=== PATIENT | female | born 1950 | race Caucasian/White ===

== ENCOUNTER 2016-06-05 07:08 | Emergency (ER) | payer OTHER ==
[2016-06-05 07:24] VITALS: BP 194/93
[2016-06-05] MEDS ORDERED: NS 0.9% 1000 ML* 1,000 ML IV ONE (07:34)
[2016-06-05] MEDS ORDERED: Aspirin Low Dose CHEW TAB* 81 MG PO ONE (07:38)
[2016-06-05] MEDS ORDERED: Aspirin Low Dose CHEW TAB* 81 MG ONE (07:39)
[2016-06-05] MEDS ORDERED: Ondansetron INJ* 2 MG/ML VIAL IV ONE (07:42)
[2016-06-05] MEDS ORDERED: Ondansetron INJ* 2 MG/ML VIAL ONE (07:43)
--- NOTE | 2016-06-05 08:00 | UC ---
IFred,Pancho, scribed for Montse Marlow MD on 06/05/16 at 0740 . Abdominal Pain Female HPI - HPI Summary HPI Summary: This 66 y/o female presents to [facility] for acute n/v since 4 days ago. She also reports fever, chills, jaw pain, and epigastric/chest pain. Negative diarrhea. PO fluid intake makes n/v worse. Pt attempted to control her nausea with ondansetron with last dose about an hour ago, but dry heaves persist. PMHx includes IBS, asthma, HTN, HLD, and DM. Benign cardiac cath in October 2012. Pt reports last stress test was wnl. Plan of care involving ambulance transfer to [facility] is discussed with pt and present at bedside, and they are agreeable. Questions regarding transportation are answered. - History of Current Complaint Stated Complaint: VOMITING Time Seen by Provider: 06/05/16 07:16 Hx Obtained From: Patient, Medical Records Hx Last Menstrual Period: Years ago. ?: No Onset/Duration: Sudden Onset, Lasting Days, Still Present Timing: Constant Severity Initially: Moderate Severity Currently: Moderate Pain Intensity: 6 Pain Scale Used: 0-10 Numeric Location: Epigastric Radiates: Yes Radiates to: Back, Chest Character: Dull Aggravating Factor(s): Food, Other: - fluid Alleviating Factor(s): Nothing Associated Signs and Symptoms: Positive: Fever - subjective, Chest Pain - lower sternal pain, Nausea, Vomiting. Negative: Diarrhea - Risk Factors Ectopic Risk Factor: Negative Ovarian Torsion Risk Factor: Negative Allergies/Adverse Reactions: Allergies Allergy/AdvReac Type Severity Reaction Status Date / Time Penicillins Allergy Rash Verified 08/23/15 08:47 environmental Allergy Wheezing Uncoded 08/23/15 08:04 Home Medications: Home Medications Ondansetron ODT TAB* [Zofran Odt TAB*] 06/05/16 [History] PMH/Surg Hx/FS Hx/Imm Hx Endocrine History Of: Reports: Diabetes, Dyslipidemia Cardiovascular History Of: Reports: Hypertension Respiratory History Of: Reports: Asthma, Bronchitis Psychological History Of: Reports: Anxiety - PRN MEDICATION FOR, Depression - Surgical History Surgical History: Yes Surgery Procedure, Year, and Place: TONSILS, ARTHRO LT KNEE , RT KNEE + 2010 , CATARACTS 2010,. Heart Cath in October 2012, no blockage - Family History Known Family History: Positive: Cardiac Disease - Positive CAD to father. Afib to mother - Social History Lives: With Family Alcohol Use: Rare Substance Use Type: Prescribed Smoking Status (MU): Former Smoker Type: Cigarettes Amount Used/How Often: social Length of Time of Smoking/Using Tobacco: 20 years Have You Smoked in the Last Year: No When Did the Patient Quit Smoking/Using Tobacco: "years ago" Review of Systems Constitutional: Fever - subjective, Chills Skin: Negative Eyes: Negative ENT: Negative Respiratory: Negative Cardiovascular: Chest Pain Gastrointestinal: Abdominal Pain - epigastric pain, Vomiting Genitourinary: Negative Motor: Negative Neurovascular: Negative Musculoskeletal: Other: - jaw pain Neurological: Negative Psychological: Negative All Other Systems Reviewed And Are Negative: Yes Physical Exam Triage Information Reviewed: Yes Appearance: Well-Appearing, No Pain Distress, Obese Vital Signs: Initial Vital Signs Temp 97.6 F 06/05/16 07:17 Pulse 59 06/05/16 07:17 Resp 20 06/05/16 07:17 BP 194/93 06/05/16 07:17 Pulse Ox 95 06/05/16 07:17 Vital Signs Reviewed: Yes Eyes: Positive: Conjunctiva Clear ENT: Positive: Normal ENT inspection Neck: Positive: Supple Respiratory: Positive: Lungs clear, Normal breath sounds, No respiratory distress Cardiovascular: Positive: RRR, No Murmur, Pulses Normal, Brisk Capillary Refill Abdomen Description: Positive: No Organomegaly, Soft, Other: - diffuse mild tenderness. Negative: Distended, Guarding, McBurney's Point Tenderness, Peritoneal Signs Bowel Sounds: Positive: Present Musculoskeletal: Positive: Strength Intact, ROM Intact Neurological: Positive: Alert, Muscle Tone Normal Psychological Exam: Normal Skin Exam: Normal Diagnostics - EKG Cardiac Rate: Bradycardia - 52 bpm, Left axis (-6) Normal QTC. No change from prior on 01/02/2015 Cardiac Rhythm: Sinus: Normal ST Segment: Normal Re-Evaluation - Re-Evaluation First Eval Re-Evaluation Time: 07:42 Change: Unchanged Comment: MD in room to re-evaluate the patient. Nausea and chest discomfort still persist. Abd Pain Female Course/Dx - Differential Dx/Diagnosis Differential Diagnosis: ACS, Bowel Obstruction, Irritable Bowel Syndrome Provider Diagnoses: chest pain, jaw pain, abd pain with vomiting - Physician Notification/Consults Discussed Patient Care With: RUIZ Ambrosio at [facility] at 0730 AM Time Discussed With Above Provider: 07:30 Instructed by Provider To: Transfer - [facility] for higher level of care Discharge - Discharge Plan Condition: Stable Disposition: TRANS HIGHER LVL OF CARE FAC Discharge Disposition Comment: Pt given ASA 324mg chewed, zofran 4mg IV and transported by [facility] to [facility] The documentation as recorded by the Fred gonzalez Soohyun accurately reflects the service I personally performed and the decisions made by me, Montse Marlow MD.
== END 2016-06-05 07:50 | disposition short-term general hospital (02) ==
LOC: UCEAST 07:08
DX: R07.9 Chest pain, unspecified (principal); R11.2 Nausea with vomiting, unspecified; R68.84 Jaw pain; R10.9 Unspecified abdominal pain; Z87.891 Personal history of nicotine dependence; E11.9 Type 2 diabetes mellitus without complications; I10 Essential (primary) hypertension; E78.5 Hyperlipidemia, unspecified; J45.909 Unspecified asthma, uncomplicated
CPT/HCPCS: 93005; A9270-GY; J2405

== ENCOUNTER 2016-06-05 08:14 | Emergency (ER) | payer OTHER ==
[2016-06-05] MEDS ORDERED: Aspirin Low Dose CHEW TAB* 81 MG PO ONE (08:23)
--- NOTE | 2016-06-05 08:57 | RAD ---
HISTORY: Chest pain COMPARISONS: January 02, 2015 VIEWS:1: Single frontal portable view of the chest at 8:35 AM FINDINGS: LINES AND TUBES: None. CARDIOMEDIASTINAL SILHOUETTE: The cardiomediastinal silhouette is normal for portable technique. PLEURA: The costophrenic angles are sharp. No pleural abnormalities are noted. LUNG PARENCHYMA: The lungs are clear. ABDOMEN: The upper abdomen is clear. There is no subphrenic gas. BONES AND SOFT TISSUES: No bone or soft tissue abnormalities are noted. IMPRESSION: NO ACTIVE CARDIOPULMONARY DISEASE.
[2016-06-05 09:04] LABS: Hematocrit 43 % (35-47); Hemoglobin 14.2 g/dl (12.0-16.0); Mean Corpuscular HGB Conc 33 g/dl (31-36); Mean Corpuscular Hemoglobin 28 pg (27-31); Mean Corpuscular Volume 86 fL (80-97); Mean Platelet Volume 10 um3 (7.4-10.4); Red Blood Count 5.02 10^6/ul (4.0-5.4); Red Cell Distribution Width 14 % (10.5-15); White Blood Count 10.8 10^3/ul (3.5-10.8)
[2016-06-05 09:17] LABS: ALT 21 U/L (7-52); AST 16 U/L (13-39); Alkaline Phosphatase 61 U/L (34-104); Anion Gap 5 mmol/L (2-11); BUN/Creatinine Ratio 21.1 (8-20); Blood Urea Nitrogen 16 mg/dL (6-24); CO2 Carbon Dioxide 28 mmol/L (22-32); Calcium 9.2 mg/dL (8.6-10.3); Chloride 102 mmol/L (101-111); EGFR African American 98.2 (>60); EGFR Non-African American 76.4 (>60); Globulin 3.1 g/dL (2-4); Glucose 116 mg/dL (70-100); Potassium 3.8 mmol/L (3.5-5.0); Sodium 135 mmol/L (133-145); Total Protein 7.1 g/dL (6.4-8.9)
[2016-06-05 09:18] LABS: Troponin I 0.01 ng/mL (<0.04)
[2016-06-05] MEDS ORDERED: Ondansetron INJ* 2 MG/ML VIAL IV ONE (09:38)
[2016-06-05] MEDS ORDERED: Ketorolac INJ* 30 MG/ML 1 ML VIAL IV PUSH ONE (09:39)
[2016-06-05] MEDS: NS 0.9% 1000 ML* 2,000 ML IV ONE ×2 (09:48→11:10)
[2016-06-05 09:55] LABS: Urine Bacteria 1+ (Absent); Urine Bilirubin Negative (Negative); Urine Glucose Negative (Negative); Urine Nitrite Negative (Negative)
[2016-06-05 10:00] LABS: C Reactive Protein < 1.00 mg/L (< 5.00); Lipase 10 U/L (11.0-82.0)
[2016-06-05 13:52] VITALS: BP 129/76
--- NOTE | 2016-06-05 16:30 | ED ---
Kemal Castaneda Matthew, scribed for Marco Santacruz MD on 06/05/16 at 0955 . Abdominal Pain/Female - HPI Summary HPI Summary: A 66 y/o female presents to the ED with diffuse abdominal pain since 4 days ago. Associated symptoms include frontal headache, nausea, vomiting - since 4 days ago, left neck pain, fever, chills, coughing - started last night, lightheadedness, and urinary retention. The patient denies diffuse body aches, diarrhea, sinus congestion, rashes, and calf pain. She's also c/o of chest pain that radiates to the back. The pain is currently radiated minimal in severity. She has not had a BM since 4 days ago. Her lightheadedness worsens when sitting up. She is diabetic. She did not take her medication on 06/01 and 06/02. She has not eaten anything in the past 5 days. She has a Hx of asthma. The patient received her flu shot this year. - History of Current Complaint Chief Complaint: EDChestPainROMI Stated Complaint: NAUSEA/VOMITTING/CHEST PAIN Time Seen by Provider: 06/05/16 09:16 Hx Obtained From: Patient Hx Last Menstrual Period: Years ago. ?: No Onset/Duration: Gradual Onset, Lasting Days - 4, Still Present Timing: Constant Severity Initially: Moderate Severity Currently: Moderate Pain Intensity: 6 Pain Scale Used: 0-10 Numeric Location: Diffuse Radiates: No Associated Signs and Symptoms: Positive: Fever, Cough, Chest Pain - which radites to the back - minimal, Urinary Symptoms - retention, Decreased Appetite , Nausea, Vomiting, Other: - Neck Pain; lightheadedness, frontal headache, chills. Negative: Diarrhea Allergies/Adverse Reactions: Allergies Allergy/AdvReac Type Severity Reaction Status Date / Time Penicillins Allergy Rash Verified 08/23/15 08:47 environmental Allergy Wheezing Uncoded 08/23/15 08:04 PMH/Surg Hx/FS Hx/Imm Hx Endocrine/Hematology History: Reports: Hx Diabetes Denies: Hx Anticoagulant Therapy, Hx Thyroid Disease Cardiovascular History: Reports: Hx Hypertension Denies: Hx Congestive Heart Failure, Hx Deep Vein Thrombosis, Hx Myocardial Infarction, Hx Pacemaker/ICD Respiratory History: Reports: Hx Asthma, Hx Seasonal Allergies, Hx Sleep Apnea - DIAGNOSED 25 YEARS AGO- UNSURE IF STILL HAS Denies: Hx Chronic Obstructive Pulmonary Disease (COPD), Hx Lung Cancer, Hx Pneumonia, Hx Pulmonary Embolism GI History: Reports: Hx Gastroesophageal Reflux Disease, Hx Irritable Bowel Denies: Hx Gall Bladder Disease, Hx Gastrointestinal Bleed, Hx Ulcer, Hx Urosepsis History: Denies: Hx Kidney Stones, Hx Renal Disease Musculoskeletal History: Reports: Hx Arthritis - degenerative, Hx Back Problems , Other Musculoskeletal History - obesity Sensory History: Reports: Hx Cataracts, Hx Contacts or Glasses - GLASSES, Hx Glaucoma Denies: Hx Hearing Aid Opthamlomology History: Reports: Hx Cataracts, Hx Contacts or Glasses - GLASSES , Hx Glaucoma Neurological History: Denies: Hx Dementia, Hx Migraine, Hx Seizures, Hx Transient Ischemic Attacks (TIA) Psychiatric History: Reports: Hx Anxiety - PRN MEDICATION FOR, Hx Depression Denies: Hx Panic Disorder, Hx Schizophrenia, Hx Bipolar Disorder - Cancer History Hx Chemotherapy: No Hx Radiation Therapy: No - Surgical History Surgery Procedure, Year, and Place: TONSILS, ARTHRO LT KNEE , RT KNEE 2010 , CATARACTS 2010,. Heart Cath in October 2012, no blockage Hx Anesthesia Reactions: No Infectious Disease History: No Infectious Disease History: Denies: Hx Clostridium Difficile, Traveled Outside the [place] in Last 30 Days - Family History Known Family History: Positive: Cardiac Disease - Positive CAD to father. Afib to mother, Hypertension, Diabetes - Social History Alcohol Use: Rare Substance Use Type: Reports: Prescribed Smoking Status (MU): Former Smoker Type: Cigarettes Amount Used/How Often: social Length of Time of Smoking/Using Tobacco: 20 years Have You Smoked in the Last Year: No Review of Systems Positive: Fever, Chills Eyes: Negative ENT: Negative Negative: Nasal Discharge Positive: Chest Pain Positive: Cough Positive: Abdominal Pain, Vomiting, Nausea. Negative: Diarrhea Genitourinary: Other - urinary retention Positive: Myalgia - left sided neck pain Skin: Negative Negative: Rash Neurological: Other - lightheadedness Positive: Headache - frontal Psychological: Normal All Other Systems Reviewed And Are Negative: Yes Physical Exam - Summary Physical Exam Summary: The patient is well-nourished in no acute distress and in no acute pain. The skin is warm and dry and skin color reflects adequate perfusion. HEENT: The head is normocephalic and atraumatic. The pupils are equal and reactive. The conjunctivae are clear and without drainage. No photophobia noted. Nares are patent and without drainage. Mouth reveals dry mucous membranes and the throat is without erythema and exudate. The external ears are intact. The ear canals are patent and without drainage. The tympanic membranes are intact. Neck is supple with full range of motion. There are no carotid bruits. There is no neck vein distension. The patient has tenderness over the left TMJ. Respiratory: Chest is non-tender. She has wheezing on the right side. Cardiovascular: Heart is regular rate and rhythm. There is no murmur or rub auscultated. There is no peripheral edema and pulses are symmetrical and equal. Abdomen: The abdomen is soft and non-tender. There are normal bowel sounds heard in all four quadrants and there is no organomegaly palpated. Musculoskeletal: There is no back pain noted. Extremities are non-tender with full range of motion. There is good capillary refill. There is no peripheral edema or calf tenderness elicited. Neurological: Patient is alert and oriented to person, place and time. The patient has symmetrical motor strength in all four extremities. Cranial nerves are grossly intact. Deep tendon reflexes are symmetrical and equal in all four extremities. Psychiatric: The patient has an appropriate affect and does not exhibit any anxiety or depression. Triage Information Reviewed: Yes Vital Signs On Initial Exam: Initial Vitals Temp Pulse Resp BP Pulse Ox 98.4 F 54 22 167/72 98 06/05/16 08:22 06/05/16 08:22 06/05/16 08:22 06/05/16 08:22 06/05/16 08:22 Vital Signs Reviewed: Yes - [place] Coma Scale Coma Scale Total: 15 Diagnostics - Vital Signs Vital Signs Temp Pulse Resp BP Pulse Ox 06/05/16 08:22 98.4 F 54 22 167/72 98 - Laboratory Lab Results: Lab Results 06/05/16 06/05/16 06/05/16 Range/Units 08:50 08:50 08:50 WBC 10.8 (3.5-10.8) 10^3/ul RBC 5.02 (4.0-5.4) 10^6/ul Hgb 14.2 (12.0-16.0) g/dl Hct 43 (35-47) % MCV 86 (80-97) fL MCH 28 (27-31) pg MCHC 33 (31-36) g/dl RDW 14 (10.5-15) % Plt Count 192 (150-450) 10^3/ul MPV 10 (7.4-10.4) um3 Neut % (Auto) 81.9 (38-83) % Lymph % (Auto) 11.5 L (25-47) % [place] % (Auto) 5.8 (1-9) % Eos % (Auto) 0.5 (0-6) % Baso % (Auto) 0.3 (0-2) % Absolute Neuts (auto) 8.8 H (1.5-7.7) 10^3/ul Absolute Lymphs (auto) 1.2 (1.0-4.8) 10^3/ul Absolute Monos (auto) 0.6 (0-0.8) 10^3/ul Absolute Eos (auto) 0.1 (0-0.6) 10^3/ul Absolute Basos (auto) 0 (0-0.2) 10^3/ul Absolute Nucleated RBC 0.01 10^3/ul Nucleated RBC % 0 Sodium 135 (133-145) mmol/L Potassium 3.8 (3.5-5.0) mmol/L Chloride 102 (101-111) mmol/L Carbon Dioxide 28 (22-32) mmol/L Anion Gap 5 (2-11) mmol/L BUN 16 (6-24) mg/dL Creatinine 0.76 (0.51-0.95) mg/dL Est GFR ( Amer) 98.2 (>60) Est GFR (Non-Af Amer) 76.4 (>60) BUN/Creatinine Ratio 21.1 H (8-20) Glucose 116 H (70-100) mg/dL Lactic Acid 1.0 (0.5-2.0) mmol/L Calcium 9.2 (8.6-10.3) mg/dL Magnesium 2.0 (1.9-2.7) mg/dL Total Bilirubin 0.90 (0.2-1.0) mg/dL AST 16 (13-39) U/L ALT 21 (7-52) U/L Alkaline Phosphatase 61 (34-104) U/L Troponin I 0.01 (<0.04) ng/mL Total Protein 7.1 (6.4-8.9) g/dL Albumin 4.0 (3.2-5.2) g/dL Globulin 3.1 (2-4) g/dL Albumin/Globulin Ratio 1.3 (1-3) Result Diagrams: 06/05/16 08:50 06/05/16 08:50 Lab Statement: Any lab studies that have been ordered have been reviewed, and results considered in the medical decision making process. - Radiology CXR Xray Interpretation: No Acute Changes - IMPRESSION: NO ACTIVE CARDIOPULMONARY DISEASE. Radiology Interpretation Completed By: Radiologist - EKG 08:11 Cardiac Rate: Bradycardia - 53 bpm EKG Rhythm: Sinus Bradycardia EKG Interpretation: Poor R Wave Progression Re-Evaluation - Re-Evaluation First Eval Re-Evaluation Time: 12:52 Change: Improved Comment: The patient is still nauseated with a headache. The patient states that she does feel better and would like to be discharged home. Abdominal Pain Fem Course/Dx - Course Course Of Treatment: A 66 y/o female presents to the ED with diffuse abdominal pain since 4 days ago. Associated symptoms include frontal headache, nausea, vomiting - since 4 days ago, left neck pain, fever, chills, coughing - started last night, lightheadedness, and urinary retention. The patient denies diffuse body aches, diarrhea, sinus congestion, rashes, and calf pain. Labs were reviewed. CXR shows no active cardiopulmonary disease. EKG shows sinus bradycardia at 53 bpm. In the ED course, the patient was given aspirin, 2L IV fluids, Toradol, and Zofran. She will be discharged home on hydrocodone and Zofran, and follow-up with her PCP. - Diagnoses Differential Diagnosis: Positive: TN, Pneumonia, Urinary Tract Infection, Other - dehydration, viral syndrome, influenza, Provider Diagnoses: Viral syndrome, Dehydration Discharge - Discharge Plan Condition: Stable Disposition: HOME Prescriptions: HYDROcodone/ACETAMIN 5-325 MG* [[place] 5-325 TAB*] 1 tab PO Q6H PRN #20 tab MDD 4 PRN Reason: pain Ondansetron ODT TAB* [Zofran Odt TAB*] 4 mg PO Q8H PRN #20 tab.odt PRN Reason: nausea Patient Education Materials: Viral Syndrome (ED), Dehydration (ED), Ondansetron (By mouth), Hydrocodone/Acetaminophen (By mouth) Referrals: Marcelo,Jesus Alberto, MD [Primary Care Provider] - 2 Days Additional Instructions: Please follow-up with your primary care physician in 2 days. The documentation as recorded by the Kemal gonzalez Matthew accurately reflects the service I personally performed and the decisions made by me, Marco Santacruz MD.
== END 2016-06-05 13:09 | disposition home or self-care (01) ==
LOC: ED 08:14
DX: E86.0 Dehydration (principal); B34.9 Viral infection, unspecified; E11.9 Type 2 diabetes mellitus without complications; K21.9 Gastro-esophageal reflux disease without esophagitis; J45.909 Unspecified asthma, uncomplicated; Z88.0 Allergy status to penicillin; E66.9 Obesity, unspecified; Z87.891 Personal history of nicotine dependence; Z68.35 Body mass index [BMI] 35.0-35.9, adult; R07.9 Chest pain, unspecified; R11.2 Nausea with vomiting, unspecified; R68.84 Jaw pain; R10.9 Unspecified abdominal pain; I10 Essential (primary) hypertension; E78.5 Hyperlipidemia, unspecified
CPT/HCPCS: 36415; 71010; 80053; 81003; 81015; 83605; 83690; 83735; 83880; 84484; 85025; 86140; 87086; 87502; 93005; 96360; 96374; 96375; 99284; A9270-GY; J1885; J2405

== ENCOUNTER 2016-06-06 13:10 | Emergency (ER) | payer OTHER ==
[2016-06-06] MEDS ORDERED: Ondansetron INJ* 2 MG/ML VIAL IV ONE (17:34)
[2016-06-06] MEDS ORDERED: NS 0.9% 1000 ML* 1,000 ML IV SCH (17:45)
[2016-06-06 17:49] LABS: Hematocrit 43 % (35-47); Mean Corpuscular HGB Conc 33 g/dl (31-36); Mean Corpuscular Hemoglobin 28 pg (27-31); Mean Corpuscular Volume 86 fL (80-97); Mean Platelet Volume 10 um3 (7.4-10.4); Red Blood Count 4.97 10^6/ul (4.0-5.4); Red Cell Distribution Width 14 % (10.5-15); White Blood Count 9.2 10^3/ul (3.5-10.8)
[2016-06-06 17:58] LABS: ALT 19 U/L (7-52); AST 16 U/L (13-39); Albumin 4.5 g/dL (3.2-5.2); Alkaline Phosphatase 68 U/L (34-104); Anion Gap 11 mmol/L (2-11); BUN/Creatinine Ratio 16.4 (8-20); Blood Urea Nitrogen 12 mg/dL (6-24); CO2 Carbon Dioxide 23 mmol/L (22-32); Calcium 9.9 mg/dL (8.6-10.3); Chloride 102 mmol/L (101-111); EGFR African American 102.9 (>60); Globulin 3.4 g/dL (2-4); Glucose 90 mg/dL (70-100); Lipase < 10 U/L (11.0-82.0); Potassium 3.2 mmol/L (3.5-5.0); Sodium 136 mmol/L (133-145); Total Protein 7.9 g/dL (6.4-8.9)
[2016-06-06] MEDS ORDERED: NS 0.9% 1000 ML* 1,000 ML IV ONE (18:18)
[2016-06-06] MEDS ORDERED: Iodixanol* (CONTRAST) 320 MG/ML 100 ML SDV IV ONE (18:41)
[2016-06-06 19:30] LABS: Urine Bacteria 2+ (Absent); Urine Bilirubin Negative (Negative); Urine Glucose Negative (Negative); Urine Nitrite Negative (Negative)
--- NOTE | 2016-06-06 20:29 | RAD ---
INDICATION: Left lower quadrant pain COMPARISON: None TECHNIQUE: Axial source images were obtained from the hemidiaphragms to the symphysis pubis following administration of oral and intravenous contrast. 114 mL Visipaque 320 was utilized. Coronal and sagittal reconstructed images were acquired. Lung bases: The cephalad most image shows a 5 mm nodule in the right middle lobe. This likely chronic inflammatory focus. Mild linear change at both lung bases is most consistent with atelectasis or scarring. Liver: There is mild hepatic steatosis. There are no masses. There is no ductal dilatation. Gallbladder: There may be several tiny noncalcified gallstones versus cholesterol polyps. Spleen: The spleen is normal in size. There are no masses. Pancreas: There is no focal pancreatic mass or ductal dilatation. Adrenal glands: There is no evidence of adrenal mass. Kidneys: The kidneys are normal in size and position. There are prompt nephrograms and there is prompt excretion bilaterally. There are 2 renal cysts largest which measures 1.6 cm There is no evidence of nephrolithiasis. Adenopathy: There is no evidence of adenopathy by size criteria. Fluid collections: There are no free or localized fluid collections. Vessels:There are no significant atherosclerotic changes involving the aorta. There is no focal aneurysm. The iliac vessels are normal in caliber. The IVC appears normal. GI tract: There are no acute CT bowel findings. There is no obstruction. The stomach and small bowel appear normal. The lower GI tract is remarkable for scattered sigmoid colon diverticula. The cecum, ileocecal valve, and terminal ileum appear normal. The appendix is visualized and appear normal. Pelvic organs: The uterus and adnexa appear normal Bladder: There are no bladder masses. Abdominal and pelvic soft tissues: The extraperitoneal abdominal and pelvic soft tissues appear normal.. Osseous structures: There are no acute osseous findings. Other: None IMPRESSION: NO ACUTE CT FINDINGS. NO MASS OR INFLAMMATORY CHANGE. SCATTERED DIVERTICULA OF THE SIGMOID COLON. THERE MAY BE CLOSER POLYPS VERSUS TINY NONCALCIFIED GALLSTONES NOTED INCIDENTALLY.
[2016-06-06] MEDS ORDERED: Metoclopramide TAB* 10 MG PO ONE (21:26)
[2016-06-06 22:46] VITALS: BP 151/68
--- NOTE | 2016-06-07 00:03 | ED ---
I, Oh,Pancho, scribed for James Chowdhury MD on 06/06/16 at 1816 . GI/ HPI - HPI Summary HPI Summary: This 66 y/o female presents to ED for persistent n/v after her Urgent care and ED visits yesterday. N/v started 5 days ago. Pt reports diffuse abd pain, fever , chills, SIDDIQI, dizziness, and "vibration from inside my body", but denies any cough. PO fluid intake makes the n/v worse. Dizziness is worse with head movement. PMHx includes DM, HTN, diverticulitis, and CAD with cardiac cath. Pt reports that her cath was clean. Pt is still getting menstrual cycle. Pt is currently on weekly potassium tablet. - History of Current Complaint Chief Complaint: EDAbdPain Time Seen by Provider: 06/06/16 17:28 Stated Complaint: VOMITING/DIZZY Hx Obtained From: Patient, Medical Records Onset/Duration: Started Days Ago, Atraumatic, Still Present Timing: Constant Severity: Moderate Current Severity: Mild Pain Intensity: 2 Location of Pain: Diffuse Associated Signs and Symptoms: Positive: Nausea, Vomiting, Diarrhea, Fever - subjective, Chills, Abdominal Pain - diffuse. Negative: Cough Aggravating Factor(s): Liquids Alleviating Factor(s): Nothing - Allergy/Home Medications Allergies/Adverse Reactions: Allergies Allergy/AdvReac Type Severity Reaction Status Date / Time Penicillins Allergy Rash Verified 08/23/15 08:47 environmental Allergy Wheezing Uncoded 08/23/15 08:04 PMH/Surg Hx/FS Hx/Imm Hx Endocrine/Hematology History: Reports: Hx Diabetes Denies: Hx Anticoagulant Therapy, Hx Thyroid Disease Cardiovascular History: Reports: Hx Hypertension Denies: Hx Congestive Heart Failure, Hx Deep Vein Thrombosis, Hx Myocardial Infarction, Hx Pacemaker/ICD Respiratory History: Reports: Hx Asthma, Hx Seasonal Allergies, Hx Sleep Apnea - DIAGNOSED 25 YEARS AGO- UNSURE IF STILL HAS Denies: Hx Chronic Obstructive Pulmonary Disease (COPD), Hx Lung Cancer, Hx Pneumonia, Hx Pulmonary Embolism GI History: Reports: Hx Gastroesophageal Reflux Disease, Hx Irritable Bowel Denies: Hx Gall Bladder Disease, Hx Gastrointestinal Bleed, Hx Ulcer, Hx Urosepsis History: Denies: Hx Kidney Stones, Hx Renal Disease Musculoskeletal History: Reports: Hx Arthritis - degenerative, Hx Back Problems , Other Musculoskeletal History - obesity Sensory History: Reports: Hx Cataracts, Hx Contacts or Glasses - GLASSES, Hx Glaucoma Denies: Hx Hearing Aid Opthamlomology History: Reports: Hx Cataracts, Hx Contacts or Glasses - GLASSES , Hx Glaucoma Neurological History: Denies: Hx Dementia, Hx Migraine, Hx Seizures, Hx Transient Ischemic Attacks (TIA) Psychiatric History: Reports: Hx Anxiety - PRN MEDICATION FOR, Hx Depression Denies: Hx Panic Disorder, Hx Schizophrenia, Hx Bipolar Disorder - Cancer History Hx Chemotherapy: No Hx Radiation Therapy: No - Surgical History Surgery Procedure, Year, and Place: TONSILS, ARTHRO LT KNEE , RT KNEE 2010 , CATARACTS 2010,. Heart Cath in October 2012, no blockage Hx Anesthesia Reactions: No Infectious Disease History: No Infectious Disease History: Denies: Hx Clostridium Difficile, Traveled Outside the [place] in Last 30 Days - Family History Known Family History: Positive: Cardiac Disease - Positive CAD to father. Afib to mother, Hypertension, Diabetes - Social History Alcohol Use: Rare Hx Substance Use: Yes Substance Use Type: Reports: Prescribed Hx Tobacco Use: Yes Smoking Status (MU): Former Smoker Type: Cigarettes Amount Used/How Often: social Length of Time of Smoking/Using Tobacco: 20 years Have You Smoked in the Last Year: No Review of Systems Positive: Fever, Chills Negative: Erythema Negative: Sore Throat Negative: Chest Pain Negative: Shortness Of Breath, Cough Positive: Abdominal Pain, Vomiting, Diarrhea - watery stool this morning, Nausea Negative: dysuria Negative: Myalgia, Edema Neurological: Other - positive for dizziness Positive: Headache Negative: Anxious, Depressed All Other Systems Reviewed And Are Negative: Yes Physical Exam - Summary Physical Exam Summary: Constitutional: Well-developed, Well-nourished, Alert. (-) Distressed Skin: Warm, Dry HENT: Normocephalic; Atraumatic Eyes: Conjunctiva normal Neck: Musculoskeletal ROM normal neck. (-) JVD, (-) Stridor, (-) Tracheal deviation Cardio: Rhythm regular, rate normal, Heart sounds normal; Intact distal pulses; The pedal pulses are 2+ and symmetric. Radial pulses are 2+ and symmetric. (-) Murmur Pulmonary/Chest wall: Effort normal. (-) Respiratory distress, (-) Wheezes, (-) Rales Abd: Soft, (+) Diffuse tenderness, (-) Distension, (-) Guarding, (-) Rebound Musculoskeletal: (-) Edema Lymph: (-) Cervical adenopathy Neuro: Alert, Oriented x3 Psych: Mood and affect Normal Triage Information Reviewed: Yes Vital Signs On Initial Exam: Initial Vitals Temp Pulse Resp BP Pulse Ox 98.2 F 62 20 181/87 98 06/06/16 13:15 06/06/16 13:15 06/06/16 13:15 06/06/16 13:15 06/06/16 13:15 Vital Signs Reviewed: Yes Diagnostics - Vital Signs Vital Signs Temp Pulse Resp BP Pulse Ox 06/06/16 16:18 99.5 F 65 16 171/67 100 06/06/16 15:21 98.0 F 60 16 166/74 100 06/06/16 13:15 98.2 F 62 20 181/87 98 - Laboratory Lab Results: Lab Results 06/06/16 06/06/16 Range/Units 16:57 16:57 WBC 9.2 (3.5-10.8) 10^3/ul RBC 4.97 (4.0-5.4) 10^6/ul Hgb 14.0 (12.0-16.0) g/dl Hct 43 (35-47) % MCV 86 (80-97) fL MCH 28 (27-31) pg MCHC 33 (31-36) g/dl RDW 14 (10.5-15) % Plt Count 201 (150-450) 10^3/ul MPV 10 (7.4-10.4) um3 Neut % (Auto) 76.9 (38-83) % Lymph % (Auto) 16.7 L (25-47) % [place] % (Auto) 5.7 (1-9) % Eos % (Auto) 0.1 (0-6) % Baso % (Auto) 0.6 (0-2) % Absolute Neuts (auto) 7.1 (1.5-7.7) 10^3/ul Absolute Lymphs (auto) 1.5 (1.0-4.8) 10^3/ul Absolute Monos (auto) 0.5 (0-0.8) 10^3/ul Absolute Eos (auto) 0 (0-0.6) 10^3/ul Absolute Basos (auto) 0.1 (0-0.2) 10^3/ul Absolute Nucleated RBC 0 10^3/ul Nucleated RBC % 0 Sodium 136 (133-145) mmol/L Potassium 3.2 L (3.5-5.0) mmol/L Chloride 102 (101-111) mmol/L Carbon Dioxide 23 (22-32) mmol/L Anion Gap 11 (2-11) mmol/L BUN 12 (6-24) mg/dL Creatinine 0.73 (0.51-0.95) mg/dL Est GFR ( Amer) 102.9 (>60) Est GFR (Non-Af Amer) 80.0 (>60) BUN/Creatinine Ratio 16.4 (8-20) Glucose 90 (70-100) mg/dL Calcium 9.9 (8.6-10.3) mg/dL Total Bilirubin 0.80 (0.2-1.0) mg/dL AST 16 (13-39) U/L ALT 19 (7-52) U/L Alkaline Phosphatase 68 (34-104) U/L Total Protein 7.9 (6.4-8.9) g/dL Albumin 4.5 (3.2-5.2) g/dL Globulin 3.4 (2-4) g/dL Albumin/Globulin Ratio 1.3 (1-3) Lipase < 10 L (11.0-82.0) U/L Result Diagrams: 06/06/16 16:57 06/06/16 16:57 Lab Statement: Any lab studies that have been ordered have been reviewed, and results considered in the medical decision making process. - CT Ab/P CT Interpretation: No Acute Changes - NO ACUTE CT FINDINGS. NO MASS OR INFLAMMATORY CHANGE. SCATTERED DIVERTICULA OF THE SIGMOID COLON. THERE MAY BE CLOSER POLYPS VERSUS TINY NONCALCIFIED GALLSTONES NOTED INCIDENTALLY. CT Interpretation Completed By: Radiologist Re-Evaluation - Re-Evaluation First Eval Re-Evaluation Time: 20:42 Change: Improved Comment: MD in room to re-evaluate the pt. She is feeling better at this moment after fluid resuscitation and ondansetron. Pt will be road-tested and be discharged if stabled. Second Eval Re-Evaluation Time: 21:23 Change: Worse Comment: Pt had diarrhea in ED. GIGU Course/Dx - Course Assessment/Plan: This 66 y/o female presents to ED with chief complaint of persistent n/v, SIDDIQI, and abd cramps since her discharge with [facility] yesterday. Pt was seen with similar complaints and sent home with hydrocodone and ondansetron a day before. CT Ab/P indicates scattered diverticula without any acute changes as well as incidental finding of noncalcified gallstone. Bloodwork is wnl. UA appears contaminated with squamous cells present as well as 2+bacteria, scant 1 + blood and ketone. Pt is re-evaluated after NS IV fluid and ondansetron, and she states that she is feeling better. - Diagnoses Provider Diagnoses: Viral syndrome, Gastroenteritis Discharge - Discharge Plan Condition: Stable Disposition: HOME Patient Education Materials: Viral Syndrome (ED), Gastroenteritis (ED) Referrals: Jesus Alberto Robertson MD [Primary Care Provider] - 2 Days Additional Instructions: Return to the emergency department for changing or worsening symptoms The documentation as recorded by the Fred gonzalez Soohyun accurately reflects the service I personally performed and the decisions made by , James Chowdhury MD.
== END 2016-06-06 22:42 | disposition home or self-care (01) ==
LOC: ED 13:10
DX: K52.9 Noninfective gastroenteritis and colitis, unspecified (principal); B34.9 Viral infection, unspecified; I10 Essential (primary) hypertension; J45.909 Unspecified asthma, uncomplicated; F41.9 Anxiety disorder, unspecified; Z87.891 Personal history of nicotine dependence; E11.9 Type 2 diabetes mellitus without complications; I25.10 Atherosclerotic heart disease of native coronary artery without angina pectoris; Z88.0 Allergy status to penicillin
CPT/HCPCS: 36415; 74177; 80053; 81003; 81015; 83690; 85025; 87086; 93005; 96360; 96374; 99283; A9270-GY; J2405; Q9967

== ENCOUNTER 2016-10-08 11:54 | Emergency (ER) | payer OTHER ==
[2016-10-08 12:14] VITALS: BP 128/74
[2016-10-08] MEDS ORDERED: Aspirin Low Dose CHEW TAB* 81 MG PO ONE (12:43)
[2016-10-08] MEDS ORDERED: Ondansetron INJ* 2 MG/ML VIAL IV ONE (12:44)
[2016-10-08] MEDS ORDERED: NS 0.9% 1000 ML* 1,000 ML IV ONE (13:25)
--- NOTE | 2016-10-08 13:41 | UC ---
Juliet Castaneda Anna, scribed for Tiera Terry DO on 10/08/16 at 1220 . Dizzy HPI HPI Summary: Patient is a 66 y/o female coming to [facility] [place] presenting with the sudden onset of constant dizziness that began this morning at 0600. She has additionally had nausea accompanied by chills, diaphoresis, and emesis of light green liquid. She has also been dry heaving and feels RUQ abdominal pain. She has left shoulder pain and back pain that began a few weeks ago. She takes codeine for her arm pain but stopped taking it four days ago. She has been coughing, and had some clear rhinorrhea. Denies SOB, CP, neck pain, jaw pain, dysuria. She had similar symptoms four months ago, where she was diagnosed with gastroenteritis. Her history is significant for HLD, HTN, GERD, irritable bowel , and DM. Patient medications were reviewed this visit. - History Of Current Complaint Chief Complaint: UCDizziness Stated Complaint: VOMITING Time Seen by Provider: 10/08/16 12:00 Hx Obtained From: Patient, Family/Natural Resource Technician - accompanied by Hx Last Menstrual Period: Years ago. ?: No Onset/Duration: Sudden Onset, Lasting Hours, Still Present Timing: Constant Severity Initially: Moderate Severity Currently: Moderate Character: Dizzy Aggravating Factor(s): Nothing Alleviating Factor(s): Nothing Associated Signs And Symptoms: Positive: Nausea, Vomiting, Diaphoresis. Negative: Chest Pain, SOB Related History: Similar Episode/Dx as - 05/2016, diagnosed with gastroenteritis - Allergies/Home Medications Allergies/Adverse Reactions: Allergies Allergy/AdvReac Type Severity Reaction Status Date / Time Penicillins Allergy Rash Verified 09/18/16 09:34 environmental Allergy Wheezing Uncoded 09/18/16 09:34 PMH/Surg Hx/FS Hx/Imm Hx Endocrine History Of: Reports: Diabetes - on oral meds, Dyslipidemia Denies: Thyroid Disease, Hyperthyroidism, Hypothyroidism Cardiovascular History Of: Reports: Hypertension Denies: Cardiac Disorders, Pacemaker/ICD, Myocardial Infarction, Congestive Heart Failure, Atrial Fibrillation, Deep Vein Thrombosis, Bleeding Disorders Respiratory History Of: Reports: Asthma, Bronchitis Denies: COPD, Pneumonia, Pulmonary Embolism GI/ History Of: Denies: Gastroesophageal Reflux, Ulcer, Gastrointestinal Bleed, Gall Bladder Disease, Kidney Stones, Diverticulitis, Renal Disease, Urosepsis Neurological History Of: Denies: TIA, CVA, Dementia, Seizures, Migraine Psychological History Of: Reports: Anxiety - PRN MEDICATION FOR, Depression Denies: Bipolar Disorder, Schizophrenia, Post Traumatic Stress Disorder Cancer History Of: Denies: Lung Cancer, Colorectal Cancer, Breast Cancer, Prostate Cancer, Cervical Cancer Other History Of: Negative For: HIV, Hepatitis B, Hepatitis C, Anticoagulant Therapy - Surgical History Surgical History: Yes Surgery Procedure, Year, and Place: TONSILS, ARTHRO LT KNEE , RT KNEE + 2010 , CATARACTS 2010,. Heart Cath in October 2012, no blockage. BOTOX FOR ANAL FISSURE-2016 - Family History Known Family History: Positive: Cardiac Disease - Positive CAD to father. Afib to mother, Hypertension, Diabetes - Social History Lives: With Family Alcohol Use: None Substance Use Type: Marijuana Substance Use Comment - Amount & Last Used: occasional marijuana use- pt states it helps her back pain Smoking Status (MU): Former Smoker Type: Cigarettes Amount Used/How Often: social Length of Time of Smoking/Using Tobacco: 20 years Have You Smoked in the Last Year: No When Did the Patient Quit Smoking/Using Tobacco: "years ago" Review of Systems Constitutional: Chills - alternately warm and cold, Other - diaphoresis Skin: Negative Eyes: Negative ENT: Nasal Discharge Respiratory: Cough Cardiovascular: Negative Gastrointestinal: Abdominal Pain - RUQ, Vomiting, Other - nausea Genitourinary: Negative Motor: Negative Neurovascular: Negative Musculoskeletal: Arthralgia - left shoulder pain, Myalgia - back pain Neurological: Other - dizziness Psychological: Negative All Other Systems Reviewed And Are Negative: Yes Physical Exam Triage Information Reviewed: Yes Appearance: Ill-Appearing, Pain Distress - mod, Obese, Other: - Diaphoretic. Not pale. Vital Signs: Initial Vital Signs Temp 96.7 F 10/08/16 12:11 Pulse 55 10/08/16 12:11 Resp 16 10/08/16 12:11 BP 128/74 10/08/16 12:11 Pulse Ox 99 10/08/16 12:11 Elevated BP noted. Vital Signs Reviewed: Yes Eyes: Positive: Conjunctiva Clear. Negative: Discharge ENT: Positive: Hearing grossly normal. Negative: Muffled/hoarse voice Neck: Positive: Supple, Nontender Respiratory: Positive: Normal breath sounds, No respiratory distress, No accessory muscle use, Wheezing - diffuse in all [place] Cardiovascular: Positive: No Murmur, Bradycardia Abdomen Description: Positive: Soft, Other: - Exquisitely tender in epigastric and RUQ areas. Some RLQ tenderness.. Negative: Distended, Guarding Bowel Sounds: Positive: Present Musculoskeletal Exam: Normal Neurological: Positive: Alert, Muscle Tone Normal Psychological Exam: Normal Psychological: Positive: Age Appropriate Behavior Skin Exam: Other - warm, dry, normal color Diagnostics - EKG Cardiac Rate: Bradycardia - 57 bpm Cardiac Rhythm: Sinus: Normal Ectopy: None ST Segment: Normal - No ST changes Dizzy Course/Dx - Differential Dx/Diagnosis Differential Diagnosis/HQI/PQRI: Other - gall bladder dz, pancreatitis, acs, bronchitis/bronchospasm, abd pain Provider Diagnoses: Dizziness. Epigastric/RUQ pain. Acute nausea and vomiting. Atypical chest pain r/o ACS. Bronchospasm. BP in poor control. - Physician Notifications Discussed Patient Care With: Dr. Lopez (ED Physician) at 1241. Agrees to accept patient at [facility]. Discharge - Discharge Plan Condition: Stable Disposition: TRANS HIGHER LVL OF CARE FAC Discharge Disposition Comment: [facility] Referrals: Jesus Alberto Robertson MD [Primary Care Provider] - The documentation as recorded by the Juliet gonzalez Anna accurately reflects the service I personally performed and the decisions made by , Tiera Terry DO.
== END 2016-10-08 13:15 | disposition short-term general hospital (02) ==
LOC: UCEAST 11:54
DX: R42 Dizziness and giddiness (principal); R10.13 Epigastric pain; R11.2 Nausea with vomiting, unspecified; R07.89 Other chest pain; J98.01 Acute bronchospasm; I10 Essential (primary) hypertension; Z88.0 Allergy status to penicillin; E11.9 Type 2 diabetes mellitus without complications; Z79.84 Long term (current) use of oral hypoglycemic drugs; F41.9 Anxiety disorder, unspecified; E66.9 Obesity, unspecified; F32.9 Major depressive disorder, single episode, unspecified; F12.90 Cannabis use, unspecified, uncomplicated; Z87.891 Personal history of nicotine dependence
CPT/HCPCS: 93005; 96360; 96374; 99213; A9270-GY; G0463; J2405

== ENCOUNTER → 2016-10-08 13:43 | Emergency (ER) | payer OTHER ==
[~2016-10-08 13:43] MED LIST: NS 0.9% 1000 ML* 1,000 ML IV ONE; PROCHLORPERAZINE INJ 5 MG/ML 2 ML VIAL IV ONE; Pantoprazole IV* 40 MG IV ONE
[2016-10-08 14:04] VITALS: BP 140/60
[2016-10-08 14:17] LABS: Hematocrit 40 % (35-47); Hemoglobin 13.1 g/dl (12.0-16.0); Mean Corpuscular HGB Conc 33 g/dl (31-36); Mean Corpuscular Hemoglobin 28 pg (27-31); Mean Corpuscular Volume 86 fL (80-97); Mean Platelet Volume 10 um3 (7.4-10.4); Red Blood Count 4.65 10^6/ul (4.0-5.4); Red Cell Distribution Width 15 % (10.5-15); White Blood Count 11.4 10^3/ul (3.5-10.8)
[2016-10-08 14:29] LABS: ALT 12 U/L (7-52); AST 16 U/L (13-39); Albumin 4.2 g/dL (3.2-5.2); Alkaline Phosphatase 88 U/L (34-104); Amylase 37 U/L (29-103); Anion Gap 9 mmol/L (2-11); BUN/Creatinine Ratio 17.6 (8-20); Blood Urea Nitrogen 12 mg/dL (6-24); C Reactive Protein 6.21 mg/L (< 5.00); CO2 Carbon Dioxide 25 mmol/L (22-32); Calcium 10.2 mg/dL (8.6-10.3); Chloride 105 mmol/L (101-111); EGFR African American 111.7 (>60); EGFR Non-African American 86.8 (>60); Globulin 3.5 g/dL (2-4); Glucose 146 mg/dL (70-100); Lipase < 10 U/L (11.0-82.0); Potassium 4.5 mmol/L (3.5-5.0); Sodium 139 mmol/L (133-145); Total Protein 7.7 g/dL (6.4-8.9)
[2016-10-08 14:31] LABS: Troponin I 0.01 ng/mL (<0.04)
--- NOTE | 2016-10-08 14:39 | RAD ---
HISTORY: Abdominal pain COMPARISONS: CT dated June 06, 2016 TECHNIQUE: Multiple transverse and longitudinal ultrasound images were obtained of the right upper quadrant of the abdomen using grayscale and color Doppler imaging. FINDINGS: LIVER: The liver is normal in shape, size, contour, and echogenicity. There are no focal parenchymal masses. There is normal hepatopedal flow of the portal vein on Doppler imaging. BILIARY TREE: There is no intrahepatic or extrahepatic biliary dilatation. The common duct measures 0.4 cm. GALLBLADDER: The gallbladder is well-visualized. There is no cholelithiasis, gallbladder wall thickening, pericholecystic fluid, or sonographic Contreras sign. PANCREAS: The head of the pancreas is unremarkable. The tail of the pancreas is not well visualized secondary to overlying bowel gas. RIGHT KIDNEY: The right kidney is normal in shape, size, contour, and echogenicity. There is no hydronephrosis or nephrolithiasis. The right kidney measures 12.1 x 5.2 x 4.4 cm. AORTA AND IVC: The aorta and IVC are unremarkable. FLUID: There are no pleural effusions. There is no free fluid within the hepatorenal recess. OTHER FINDINGS: None. IMPRESSION: NO ACUTE SONOGRAPHIC PATHOLOGY OF THE VISUALIZED PORTION OF THE ABDOMEN
--- NOTE | 2016-10-08 14:45 | RAD ---
HISTORY: Severe abdominal pain with vomiting COMPARISONS: CT dated June 06, 2016 VIEWS: Frontal supine and upright views of the abdomen. FINDINGS: BOWEL: There is a nonspecific bowel gas pattern, with nondilated small bowel gas noted. CALCULI: There are no abnormal calculi. BONES AND SOFT TISSUES: Degenerative changes are noted OTHER FINDINGS: The lung bases are clear. There is no subphrenic gas. IMPRESSION: NONSPECIFIC BOWEL GAS PATTERN. NO SUBPHRENIC GAS.
[2016-10-08 16:00] LABS: Urine Bilirubin Negative (Negative); Urine Glucose Negative (Negative); Urine Nitrite Negative (Negative)
--- NOTE | 2016-10-08 18:50 | ED ---
Eileen Castaneda Auryana, scribed for Wilmer Lopez MD on 10/08/16 at 1409 . GI/ HPI - HPI Summary HPI Summary: 66 year old female presents with nausea, dry heaves, and vomiting starting this morning at 05:00. She reports that this morning she woke to have a bowel movement - normal per patient when her symptoms started. She also reports that she has chills with hot flashes, and RUQ pain/middle upper abdominal pain starting after the vomiting. Prior episode in May - dx; dehydration and admitted for fluids - reports history of salivation, nausea, and vomiting with BMs. She denies any fevers. Aside from her current complaints today -she reports left shoulder pain that radiates into her back with left hand parasthesia -reports injury. - History of Current Complaint Chief Complaint: EDNauseaVomitDiarrh Time Seen by Provider: 10/08/16 13:58 Stated Complaint: NAUSEA Hx Obtained From: Patient Onset/Duration: Started Hours Ago - this morning at 05:00, Still Present Timing: Constant Severity: Mild Current Severity: Mild Location of Pain: Diffuse - RUQ and middle upper ABD Associated Signs and Symptoms: Positive: Nausea, Vomiting, Chills - with hot flashes. Negative: Fever - Allergy/Home Medications Allergies/Adverse Reactions: Allergies Allergy/AdvReac Type Severity Reaction Status Date / Time Penicillins Allergy Rash Verified 09/18/16 09:34 environmental Allergy Wheezing Uncoded 09/18/16 09:34 PMH/Surg Hx/FS Hx/Imm Hx Endocrine/Hematology History: Reports: Hx Diabetes - on oral meds Denies: Hx Anticoagulant Therapy, Hx Thyroid Disease Cardiovascular History: Reports: Hx Hypercholesterolemia, Hx Hypertension Denies: Hx Congestive Heart Failure, Hx Deep Vein Thrombosis, Hx Myocardial Infarction, Hx Pacemaker/ICD Respiratory History: Reports: Hx Asthma, Hx Seasonal Allergies, Hx Sleep Apnea - DIAGNOSED 25 YEARS AGO- UNSURE IF STILL HAS Denies: Hx Chronic Obstructive Pulmonary Disease (COPD), Hx Lung Cancer, Hx Pneumonia, Hx Pulmonary Embolism GI History: Reports: Hx Gastroesophageal Reflux Disease, Hx Irritable Bowel, Other GI Disorders - anal fissure with pelvic floor dysfunction Denies: Hx Gall Bladder Disease, Hx Gastrointestinal Bleed, Hx Ulcer, Hx Urosepsis History: Denies: Hx Kidney Stones, Hx Renal Disease Musculoskeletal History: Reports: Hx Arthritis - degenerative, Hx Back Problems , Hx Scoliosis - SLIGHT, Other Musculoskeletal History - obesity Sensory History: Reports: Hx Cataracts, Hx Contacts or Glasses - GLASSES, Hx Glaucoma Denies: Hx Hearing Aid Opthamlomology History: Reports: Hx Cataracts, Hx Contacts or Glasses - GLASSES , Hx Glaucoma Neurological History: Reports: Other Neuro Impairments/Disorders - PAIN CLINIC INJECTION Denies: Hx Dementia, Hx Migraine, Hx Seizures, Hx Transient Ischemic Attacks (TIA) Psychiatric History: Reports: Hx Anxiety - PRN MEDICATION FOR, Hx Depression Denies: Hx Panic Disorder, Hx Schizophrenia, Hx Bipolar Disorder - Cancer History Hx Chemotherapy: No Hx Radiation Therapy: No - Surgical History Surgery Procedure, Year, and Place: TONSILS, ARTHRO LT KNEE , RT KNEE 2010 , CATARACTS 2010,. Heart Cath in October 2012, no blockage. BOTOX FOR ANAL FISSURE-2016 Hx Anesthesia Reactions: No Infectious Disease History: Denies: Hx Clostridium Difficile - Family History Known Family History: Positive: None, Cardiac Disease - Positive CAD to father. Afib to mother, Hypertension, Diabetes - Social History Occupation: Retired Lives: With Family Alcohol Use: None Hx Substance Use: Yes Substance Use Type: Reports: Marijuana Substance Use Comment - Amount & Last Used: occasional marijuana use- pt states it helps her back pain Hx Tobacco Use: Yes Smoking Status (MU): Former Smoker Type: Cigarettes Amount Used/How Often: social Length of Time of Smoking/Using Tobacco: 20 years Have You Smoked in the Last Year: No Review of Systems Positive: Chills - with hot flashes. Negative: Fever Eyes: Negative ENT: Negative Cardiovascular: Negative Respiratory: Negative Positive: Abdominal Pain, Vomiting, Nausea Genitourinary: Negative Musculoskeletal: Negative Skin: Negative Neurological: Negative Psychological: Normal All Other Systems Reviewed And Are Negative: Yes Physical Exam - Summary Physical Exam Summary: VITAL SIGNS: Reviewed. GENERAL: Patient is a well-developed and obese female with active vomiting who is lying in the stretcher. Patient is not in any acute respiratory distress. HEAD AND FACE: Normocephalic and atraumatic. EYES: PERRLA, EOMI x 2, No injected conjunctiva. EARS: Hearing grossly intact. Ear canals and tympanic membranes are WNL. MOUTH: Oropharynx within normal limits. NECK: Supple, trachea is midline, no adenopathy, no JVD. CHEST: Symmetric, no tenderness at palpation LUNGS: Clear to auscultation bilaterally. No wheezing or crackles. CVS: RRR, S1 and S2 present, no murmurs or gallops appreciated. ABDOMEN: Soft and obese with tenderness in the RUQ. No signs of distention. Positive bowel sounds. No rebound no guarding, and no masses palpated. No abdominal bruit or pulsations. EXTREMITIES: FROM in all major joints, no edema, no cyanosis or clubbing. NEURO: Alert and oriented x 3. No acute neurological deficits. Speech is normal. SKIN: Dry and warm Triage Information Reviewed: Yes Vital Signs On Initial Exam: Initial Vitals Temp Pulse Resp BP Pulse Ox 98.1 F 51 12 119/76 99 10/08/16 13:54 10/08/16 13:54 10/08/16 13:54 10/08/16 13:54 10/08/16 13:54 Vital Signs Reviewed: Yes Diagnostics - Vital Signs Vital Signs Temp Pulse Resp BP Pulse Ox 10/08/16 16:58 23 10/08/16 14:00 12 140/60 10/08/16 13:57 119/76 10/08/16 13:54 98.1 F 51 12 119/76 99 - Laboratory Lab Results: Lab Results 10/08/16 10/08/16 10/08/16 Range/Units 13:00 13:00 13:00 WBC 11.4 H (3.5-10.8) 10^3/ul RBC 4.65 (4.0-5.4) 10^6/ul Hgb 13.1 (12.0-16.0) g/dl Hct 40 (35-47) % MCV 86 (80-97) fL MCH 28 (27-31) pg MCHC 33 (31-36) g/dl RDW 15 (10.5-15) % Plt Count 286 (150-450) 10^3/ul MPV 10 (7.4-10.4) um3 Neut % (Auto) 83.7 H (38-83) % Lymph % (Auto) 12.5 L (25-47) % [place] % (Auto) 2.9 (1-9) % Eos % (Auto) 0.3 (0-6) % Baso % (Auto) 0.6 (0-2) % Absolute Neuts (auto) 9.6 H (1.5-7.7) 10^3/ul Absolute Lymphs (auto) 1.4 (1.0-4.8) 10^3/ul Absolute Monos (auto) 0.3 (0-0.8) 10^3/ul Absolute Eos (auto) 0 (0-0.6) 10^3/ul Absolute Basos (auto) 0.1 (0-0.2) 10^3/ul Absolute Nucleated RBC 0 10^3/ul Nucleated RBC % 0 Sodium 139 (133-145) mmol/L Potassium 4.5 (3.5-5.0) mmol/L Chloride 105 (101-111) mmol/L Carbon Dioxide 25 (22-32) mmol/L Anion Gap 9 (2-11) mmol/L BUN 12 (6-24) mg/dL Creatinine 0.68 (0.51-0.95) mg/dL Est GFR ( Amer) 111.7 (>60) Est GFR (Non-Af Amer) 86.8 (>60) BUN/Creatinine Ratio 17.6 (8-20) Glucose 146 H (70-100) mg/dL Lactic Acid 2.3 H* (0.5-2.0) mmol/L Calcium 10.2 (8.6-10.3) mg/dL Total Bilirubin 0.50 (0.2-1.0) mg/dL AST 16 (13-39) U/L ALT 12 (7-52) U/L Alkaline Phosphatase 88 (34-104) U/L Troponin I 0.01 (<0.04) ng/mL C-Reactive Protein 6.21 H (< 5.00) mg/L Total Protein 7.7 (6.4-8.9) g/dL Albumin 4.2 (3.2-5.2) g/dL Globulin 3.5 (2-4) g/dL Albumin/Globulin Ratio 1.2 (1-3) Amylase 37 (29-103) U/L Lipase < 10 L (11.0-82.0) U/L Urine Color Urine Appearance Urine pH (5-9) Ur Specific [place] (1.010-1.030) Urine Protein (Negative) Urine Ketones (Negative) Urine Blood (Negative) Urine Nitrate (Negative) Urine Bilirubin (Negative) Urine Urobilinogen (Negative) Ur Leukocyte Esterase (Negative) Urine Glucose (Negative) 10/08/16 Range/Units 15:40 WBC (3.5-10.8) 10^3/ul RBC (4.0-5.4) 10^6/ul Hgb (12.0-16.0) g/dl Hct (35-47) % MCV (80-97) fL MCH (27-31) pg MCHC (31-36) g/dl RDW (10.5-15) % Plt Count (150-450) 10^3/ul MPV (7.4-10.4) um3 Neut % (Auto) (38-83) % Lymph % (Auto) (25-47) % [place] % (Auto) (1-9) % Eos % (Auto) (0-6) % Baso % (Auto) (0-2) % Absolute Neuts (auto) (1.5-7.7) 10^3/ul Absolute Lymphs (auto) (1.0-4.8) 10^3/ul Absolute Monos (auto) (0-0.8) 10^3/ul Absolute Eos (auto) (0-0.6) 10^3/ul Absolute Basos (auto) (0-0.2) 10^3/ul Absolute Nucleated RBC 10^3/ul Nucleated RBC % Sodium (133-145) mmol/L Potassium (3.5-5.0) mmol/L Chloride (101-111) mmol/L Carbon Dioxide (22-32) mmol/L Anion Gap (2-11) mmol/L BUN (6-24) mg/dL Creatinine (0.51-0.95) mg/dL Est GFR ( Amer) (>60) Est GFR (Non-Af Amer) (>60) BUN/Creatinine Ratio (8-20) Glucose (70-100) mg/dL Lactic Acid (0.5-2.0) mmol/L Calcium (8.6-10.3) mg/dL Total Bilirubin (0.2-1.0) mg/dL AST (13-39) U/L ALT (7-52) U/L Alkaline Phosphatase (34-104) U/L Troponin I (<0.04) ng/mL C-Reactive Protein (< 5.00) mg/L Total Protein (6.4-8.9) g/dL Albumin (3.2-5.2) g/dL Globulin (2-4) g/dL Albumin/Globulin Ratio (1-3) Amylase (29-103) U/L Lipase (11.0-82.0) U/L Urine Color Yellow Urine Appearance Clear Urine pH 8.0 (5-9) Ur Specific [place] 1.015 (1.010-1.030) Urine Protein Negative (Negative) Urine Ketones 2+ H (Negative) Urine Blood Negative (Negative) Urine Nitrate Negative (Negative) Urine Bilirubin Negative (Negative) Urine Urobilinogen Negative (Negative) Ur Leukocyte Esterase Negative (Negative) Urine Glucose Negative (Negative) Result Diagrams: 10/08/16 13:00 10/08/16 13:00 Lab Statement: Any lab studies that have been ordered have been reviewed, and results considered in the medical decision making process. - Radiology ABDOMINAL XR Xray Interpretation: No Acute Changes - IMPRESSION: NONSPECIFIC BOWEL GAS PATTERN. NO SUBPHRENIC GAS. Radiology Interpretation Completed By: Radiologist - Additional Comments Diagnostic Additional Comments: US GALL BLADDER IMPRESSION: NO ACUTE SONOGRAPHIC PATHOLOGY OF THE VISUALIZED PORTION OF THE ABDOMEN GIGU Course/Dx - Course Course Of Treatment: 66 year old female presents with nausea, dry heaves, and vomiting starting this morning at 05:00. She reports that this morning she woke to have a bowel movement - normal per patient when her symptoms started. She also reports that she has chills with hot flashes, and RUQ pain/middle upper abdominal pain starting after the vomiting. Prior episode in May - dx; dehydration and admitted for fluids - reports history of salivation, nausea, and vomiting with BMs. She denies any fevers. Aside from her current complaints today -she reports left shoulder pain that radiates into her back with left hand parasthesia -reports injury Assessment/Plan: Test results WNL except WBC 11.4, glucose 146, CRP 6.21. ABD XR- NAD, Gallbladder US - IMPRESSION: NO ACUTE SONOGRAPHIC PATHOLOGY OF THE VISUALIZED PORTION OF THE ABDOMEN. In ED course, patient was hydrated with IV fluids. Given protonix and zofran for nausea and vomiting. She was a little queasy after the meds and therefore given 1 dose of Compazine. After these medications, her symptoms improved-tolerated PO without nausea and vomiting. Patient is hemodynamically stable and A&O x3. - Diagnoses Provider Diagnoses: Vomiting and diarrhea, Nausea, Diarrhea Discharge - Discharge Plan Condition: Stable Disposition: HOME Prescriptions: Ondansetron ODT TAB* [Zofran 4 MG Odt TAB*] 4 mg PO Q6H PRN #10 tab.odt PRN Reason: Vomiting Patient Education Materials: Acute Nausea and Vomiting (ED), Acute Diarrhea (ED ) Referrals: Jesus Alberto Robertson MD [Primary Care Provider] - 2 Days The documentation as recorded by the Eileen gonzalez Auryana accurately reflects the service I personally performed and the decisions made by John guevara Walter, MD.
== END | disposition home or self-care (01) ==
LOC: ED 13:43
DX: R11.2 Nausea with vomiting, unspecified (principal); R10.11 Right upper quadrant pain; Z87.891 Personal history of nicotine dependence; R19.7 Diarrhea, unspecified
CPT/HCPCS: 36415; 74020; 76705; 80053; 81003; 82150; 83605; 83690; 84484; 85025; 86140; 96374; 96375; 99282; J0780

== ENCOUNTER 2017-04-26 08:14 | Emergency (ER) | payer OTHER ==
[2017-04-26 08:34] VITALS: BP 142/79
--- NOTE | 2017-04-26 09:24 | UC ---
Nancy Castaneda Jason, scribed for [facility] on 04/26/17 at 0852 . Dental HPI - HPI Summary HPI Summary: In Room: This patient is a 67 year old F presenting to [facility] with a chief complaint of neck swelling since 1 day ago at night. The patient states she had left sided neck and mouth swelling at 2300 last night after she ate a quest bar. The patient rates the pain 4/10 in severity. Symptoms aggravated by nothing. Symptoms alleviated by nothing. Patient reports a left sided frontal headache. Patient denies cold sx, diarrhea, and sinus pain. Pain states that she has no tonsils or adenoids. MD note: visit history: chronic back pain noted, and type 2 diabetes. Allergic to penicillin. Medication review significant for treatment for back pain, diabetes, and HTN. It is noted that the patient also has HTN, Glaucoma, palpitations, asthma, herniated lumbar disk, anxiety, and depression, and GERD. VSS, afebrile, BP is 142/79 and patient is experiencing 4/10 pain. Patient is a former smoker. Nurses note: Pt states swelling and pain into left side jaw/neck that began last night after chewing a quest bar 04/25/17. Pt states ice improved swelling. - History of Current Complaint Chief Complaint: UCDentalProblem Stated Complaint: SWOLLEN NECK/FACE Time Seen by Provider: 04/26/17 08:21 Hx Obtained From: Patient Hx Last Menstrual Period: Years ago. Onset/Duration: Gradual Onset, Lasting Days - since 1 day ago at night, Still Present Pain Intensity: 4 Pain Scale Used: 0-10 Numeric Aggravating Factor(s): Nothing Alleviating Factor(s): Nothing - Allergies/Home Medications Allergies/Adverse Reactions: Allergies Allergy/AdvReac Type Severity Reaction Status Date / Time Penicillins Allergy Rash Verified 04/26/17 08:34 environmental Allergy Wheezing Uncoded 04/26/17 08:34 Home Medications: Home Medications Cholecalciferol [Vitamin D] 2,000 unit PO DAILY 04/26/17 [History Confirmed ] PMH/Surg Hx/FS Hx/Imm Hx Previously Healthy: No Cardiovascular History: Hypertension, Other - palpitations Other Cardiovascular History: palpitations Respiratory History: Asthma GI/ History: Gastroesophageal Reflux Psychological History: Anxiety, Depression Other History Of: Negative For: HIV, Hepatitis B, Hepatitis C, Anticoagulant Therapy - Surgical History Surgical History: Yes Surgery Procedure, Year, and Place: TONSILS, ARTHRO LT KNEE , RT KNEE + 2010 , CATARACTS 2010,. Heart Cath in October 2012, no blockage. BOTOX FOR ANAL FISSURE-2016 - Family History Known Family History: Positive: Cardiac Disease - Positive CAD to father. Afib to mother, Hypertension, Diabetes - Social History Alcohol Use: None Substance Use Type: None Substance Use Comment - Amount & Last Used: occasional marijuana use- pt states it helps her back pain Smoking Status (MU): Former Smoker Type: Cigarettes Amount Used/How Often: social Length of Time of Smoking/Using Tobacco: 30 years Have You Smoked in the Last Year: No When Did the Patient Quit Smoking/Using Tobacco: "years ago" - Immunization History Most Recent Influenza Vaccination: 04/2017 Review of Systems All Other Systems Reviewed And Are Negative: Yes - Comments Additional Review of Systems Comments: A 12 point review of systems was completed and significantly positive for: ~ left sided neck and mouth swelling, and a left sided frontal headache. Patient denies cold sx, diarrhea, and sinus pain. ~The remainder of the review was negative except as stated above in the HPI. Physical Exam Triage Information Reviewed: Yes Vital Signs: Initial Vital Signs Temp 97.2 F 04/26/17 08:30 Pulse 71 04/26/17 08:30 Resp 18 04/26/17 08:30 BP 142/79 04/26/17 08:30 Pulse Ox 98 04/26/17 08:30 ENT: Positive: Other - Additional Comments The patient is well-nourished in no acute distress and in no acute pain. The skin is warm and dry and skin color reflects adequate perfusion. HEENT: The head is normocephalic and atraumatic. The pupils are equal and reactive. The conjunctivae are clear and without drainage. Nares are patent and without drainage. Mouth reveals moist mucous membranes and the throat is without erythema and exudate. The external ears are intact. The ear canals are patent and without drainage. The tympanic membranes are intact. Neck is supple. Mild submandibular swelling on the left that is mildly tender to palpation. The swelling radiates to the angle of the left mandible. There is no evident erythema. There is no obstruction to breathing or swallowing. No external otitis on the left side. No evidence of infection. Neck is supple with full range of motion and non-tender. There are no carotid bruits. There is no neck vein distension. Respiratory: Chest is non-tender. Lungs are clear to auscultation and breath sounds are symmetrical and equal. Extended expiratory phase and wheezing that is consistent with asthma. Cardiovascular: Heart is regular rate and rhythm. There is no murmur or rub auscultated. There is no peripheral edema and pulses are symmetrical and equal. Abdomen: The abdomen is soft and non-tender. There are normal bowel sounds heard in all four quadrants and there is no organomegaly palpated. Musculoskeletal: There is no back pain noted. Extremities are non-tender with full range of motion. There is good capillary refill. There is no peripheral edema or calf tenderness elicited. Neurological: Patient is alert and oriented to person, place and time. The patient has symmetrical motor strength in all four extremities. Cranial nerves are grossly intact. Deep tendon reflexes are symmetrical and equal in all four extremities. Psychiatric: The patient has an appropriate affect and does not exhibit any anxiety or depression Dental Complaint Course/Dx - Course Course Of Treatment: The patient is a 67 year old female with tenderness and swelling of the left submandibular gland. In discussion with the patient, Diana decided to start her on clindamycin for possible infection. I spoke to her about the signs and symptoms of neck space infection. Medications have been included in the original chart and reviewed. Patient has been given an antibiotic because findings on physical examination and health history. The risks and benefits of antibiotic treatment have been discussed and patient has voiced understanding of these risks including the possibility of developing clostridium difficile enterocolitis. Dx of Left submandibular swelling and tenderness consistent with infection or inflammation. - Differential Dx/Diagnosis Differential Diagnosis/Dx: Other - neck space infection, submandibular gland infection, and dental infection. Provider Diagnoses: Left submandibular swelling and tenderness consistent with infection or inflammation Discharge - Discharge Plan Condition: Stable Disposition: HOME Prescriptions: Clindamycin Cap(NF) [Clindamycin Cap 300 mg Cap(NF)] 300 mg PO TID #15 cap MDD 3 Patient Education Materials: Sialoadenitis (ED) Referrals: Jesus Alberto Robertson MD [Primary Care Provider] - Additional Instructions: Thank you for helping us improve patient care by filling out the My Point Survey. Your blood pressure reading today was 142/79, indicating HYPERTENSION/ PREHYPERTENSION. Follow-up with your primary care provider within 4 weeks for blood pressure readings and further evaluation. WE DISCUSSED: 1. You have swelling of the gland of your neck on the left. This could be an infection. I've given you some information about neck pain and swelling. This doesn't appear to be a neck space infection. 2. Treatment: antibiotic for five days. 3. Warm water gargles and warm moist heat to area, 4 times a day. Moist heat for 15 minutes. PLEASE SEEK CARE AT THE EMERGENCY DEPARTMENT IF SYMPTOMS WORSEN OR IF NEW SYMPTOMS DEVELOP. FOLLOW UP WITH YOUR PRIMARY CARE PHYSICIAN. The documentation as recorded by the Nancy gonzalez Jason accurately reflects the service I personally performed and the decisions made by me, Monty Martinez MD.
== END 2017-04-26 09:22 | disposition home or self-care (01) ==
LOC: UCEAST 08:14
DX: R22.0 Localized swelling, mass and lump, head (principal); R51 Headache; E11.8 Type 2 diabetes mellitus with unspecified complications; I10 Essential (primary) hypertension; R00.2 Palpitations; J45.909 Unspecified asthma, uncomplicated; K21.9 Gastro-esophageal reflux disease without esophagitis; F41.9 Anxiety disorder, unspecified; F32.9 Major depressive disorder, single episode, unspecified; Z88.0 Allergy status to penicillin; Z87.891 Personal history of nicotine dependence
CPT/HCPCS: 99212; G0463

== ENCOUNTER 2017-07-18 11:59 | Observation (INO) | payer OTHER ==
[2017-07-18] MEDS ORDERED: NS 0.9% 1000 ML* 1,000 ML IV ONE (12:14)
[2017-07-18 13:12] LABS: Urine Appearance Clear; Urine Blood Negative (Negative); Urine Color Yellow; Urine Ketones 1+ (Negative); Urine Protein 1+(30 mg/dL) (Negative); Urine Specific Gravity 1.026 (1.010-1.030); Urine Urobilinogen Negative (Negative)
[2017-07-18 13:25] LABS: ABS Basophils 0 10^3/ul (0-0.2); ABS Eosinophils 0 10^3/ul (0-0.6); ABS Lymphocytes 1.2 10^3/ul (1.0-4.8); ABS Monocytes 0.4 10^3/ul (0-0.8); ABS Neutrophils 7.7 10^3/ul (1.5-7.7); ABS Nucleated RBC 0 10^3/ul; Eosinophil % 0.4 % (0-6); Hematocrit 39 % (35-47); Hemoglobin 12.9 g/dl (12.0-16.0); Lymphocyte % 12.5 % (25-47); Mean Corpuscular HGB Conc 33 g/dl (31-36); Mean Corpuscular Hemoglobin 29 pg (27-31); Mean Corpuscular Volume 87 fL (80-97); Mean Platelet Volume 9 um3 (7.4-10.4); Nucleated Red Blood Cells % 0; Platelet Count 221 10^3/ul (150-450); Red Blood Count 4.43 10^6/ul (4.0-5.4); Red Cell Distribution Width 14 % (10.5-15); White Blood Count 9.4 10^3/ul (3.5-10.8)
[2017-07-18 13:39] LABS: EGFR Non-African American 94.5 (>60)
[2017-07-18] MEDS ORDERED: Ondansetron INJ* 2 MG/ML VIAL ONE (13:39)
--- NOTE | 2017-07-18 14:04 | RAD ---
INDICATION: Abdominal pain. COMPARISON: Comparison is made with a prior study from October 08, 2016. TECHNIQUE: Supine and decubitus views of the abdomen were obtained. FINDINGS: The small bowel and colon appear nondistended. No free intraperitoneal air is seen. IMPRESSION: NO EVIDENCE FOR ACUTE FINDING.
[2017-07-18] MEDS ORDERED: Ondansetron INJ* 2 MG/ML VIAL IV ONE (14:09)
[2017-07-18] MEDS ORDERED: Metoclopramide IV* 5 MG/ML 2 ML VIAL IV ONE (14:24)
[2017-07-18] MEDS ORDERED: Iodixanol* (CONTRAST) 320 MG/ML 100 ML SDV IV ONE (14:31)
[2017-07-18] MEDS ORDERED: PROCHLORPERAZINE INJ 5 MG/ML 2 ML VIAL IV PRN ×2 (15:15→20:17)
--- NOTE | 2017-07-18 15:15 | RAD ---
INDICATION: Abdominal pain, nausea, vomiting. COMPARISON: October 08, 2016 RIGHT upper quadrant ultrasound. June 06, 2016 CT. TECHNIQUE: Multidetector CT images were obtained from the lung bases to the ischial tuberosities with 100 mL Visipaque 320 IV and oral contrast. Multiplanar reformation. REPORT: Unremarkable visualized inferior thorax. 19.3 cm cephalocaudal liver is decreased in density consistent with fatty infiltration. Negative for suspicious focal hepatic lesions. No CT abnormality of the gallbladder, pancreas, spleen. Negative for CT abnormality of the upper GI, small bowel, or medially extending appendix most conspicuous on the coronal reformatted series. Mild diverticulosis of the colon primarily at the sigmoid colon without findings of diverticulitis. Negative for ascites, free air, hernias. Normal adrenal glands. Unchanged 2 sharply circumscribed hypodense LEFT renal cortical lesions most consistent with benign cysts. No suspicious focal renal lesions or hydronephrosis. Unremarkable nondilated ureters and urinary bladder. Unremarkable uterus and adnexal regions. Negative for lymphadenopathy. Normal diameter abdominal aorta and iliac arteries with mild calcific plaque. Physiologic distention of the IVC. Multiple Schmorl node endplate herniations at the visualized lower thoracic and lumbar spine. Degenerative spondylosis and facet joint osteoarthritis. Negative for suspicious focal osseous lesions. IMPRESSION: 1. Mildly enlarged liver with hepatosteatosis. 2. Normal appendix documented. Mild predominant sigmoid colon diverticulosis without findings of diverticulitis.
[2017-07-18] MEDS ORDERED: Magnesium Sulfate 1 GM IV* 1 GM/100 ML BAG IV ONE (16:48)
[2017-07-18] MEDS ORDERED: Al Hydrox/Mg Hydrox/Simet LIQ* 30 ML UDC PO PRN (16:56)
[2017-07-18] MEDS ORDERED: Albuterol HFA INHALER* 8 gm MDI INH PRN (17:00)
[2017-07-18] MEDS: Trimethobenzamide IM* 100 MG/ML 2 ml VIAL IM PRN (17:49)
[2017-07-18] MEDS: NS 0.9% 1000 ML* 1,000 ML IV SCH (17:49)
[2017-07-18] MEDS ORDERED: Enoxaparin(*) 40 MG/0.4 ML SYR SUBCUT SCH (18:00)
[2017-07-18] MEDS: Mometasone/Formoter 200/5 MDI INH SCH (20:26)
--- NOTE | 2017-07-18 20:35 | RAD ---
Indication: Right upper quadrant pain.. Real-time sonography of the right upper quadrant was performed. The liver is enlarged measuring 20 centimeters in length. There is increased echogenicity consistent with hepatic steatosis. The gallbladder demonstrates no gallstones, pericholecystic fluid or wall thickening. The common duct measures 4 mm. The right kidney measures 11.9 x 4.2 x 3.9 cm with no hydronephrosis. The pancreas head, neck and proximal body demonstrates no mass or pancreatic ductal dilatation. Aorta and inferior vena cava are unremarkable. IMPRESSION: Mildly enlarged liver with mild hepatic steatosis. No evidence of cholelithiasis or biliary duct dilatation is noted.
[2017-07-18] MEDS: ALPRAZolam TAB* 0.25 MG PO SCH (20:40)
[2017-07-18] MEDS: Ondansetron INJ* 2 MG/ML VIAL IV PRN (20:45)
[2017-07-18] MEDS ORDERED: Atorvastatin* 80 MG TAB PO SCH (21:00)
[2017-07-18] MEDS ORDERED: Montelukast Sodium TAB* 10 MG PO SCH (21:00)
[2017-07-18] MEDS ORDERED: Losartan TAB* 25 MG PO SCH (21:00)
[2017-07-19] MEDS: Acetaminophen TAB* 325 MG PO PRN ×2 (02:21→09:08)
[2017-07-19] MEDS: Ondansetron INJ* 2 MG/ML VIAL IV PRN (02:33)
--- NOTE | 2017-07-19 03:52 | HP ---
CC: Dr. Robertson * HISTORY AND PHYSICAL: DATE OF ADMISSION: 07/18/17 PROVIDER: Chelsea Berumen NP PRIMARY CARE PROVIDER: Dr. Robertson. ATTENDING PHYSICIAN WHILE IN THE HOSPITAL: Dr. Marcelle Palacios * (dictated by Chelsea Berumen NP). CHIEF COMPLAINT: Nausea, vomiting. HISTORY OF PRESENT ILLNESS: Ms. Calderon is a 67-year-old female. 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 Presents to the emergency room today with a 1-day history of nausea and vomiting. The patient just states that she was not feeling well. Prior to that, she was feeling in her normal state of health with no symptoms. The patient reports that last night she went out to eat and when she got home, she started feeling ill. She went to bed. She woke at 5 a.m. with nausea and vomiting. She denies any diarrhea. She reports that approximately 1 year ago, she had some of the same symptoms and they subsided after having IV fluids and antiemetics. Ms. Calderon denies any recent sick contacts. No fevers. Denies any anorexia and denies any chest pain. Denies edema. Denies any cough or congestion. Denies any shortness of breath. She does complain of a mild right lower and right upper abdominal pain. She denies any dysuria or hematuria. No fevers have been reported. Because of her uncontrollable nausea and vomiting, we were asked to evaluate her for admission. PAST MEDICAL HISTORY: Significant for: 1. Anxiety. 2. Chronic low back pain. 3. Hypertension. 4. High cholesterol. 5. Diabetes. 6. Asthma. PAST SURGICAL HISTORY: 1. Anal fistula repair in 1971. 2. Knee arthroscopy. MEDICATIONS: 1. Aspirin 81 mg p.o. daily. 2. Albuterol HFA inhaler 2 puffs q.4 hours as needed. 3. Nasonex 1 spray daily. 4. Drisdol 50,000 units p.o. weekly. 5. Cozaar 50 mg p.o. at bedtime. 6. Atorvastatin 80 mg at bedtime. 7. Metformin 500 mg p.o. daily. 8. Potassium chloride 10 mEq p.o. daily. 9. Singulair 10 mg p.o. at bedtime. 11. Advair Diskus 250/50 one puff b.i.d. 12. Atenolol 25 mg p.o. daily. 13. Vitamin D 2000 units p.o. daily. 14. Effexor 75 mg p.o. daily. 15. Alprazolam q.6 hours as needed. 16. Levothyroxine 50 mcg p.o. daily. 17. Alprazolam 0.25 mg p.o. b.i.d. ALLERGIES TO MEDICATIONS: PENICILLIN. FAMILY HISTORY: Mother with a stroke. Father with an OH at 85. Diabetes in father, grandmother, and grandfather. Cancer aunt, uterine cancer. SOCIAL HISTORY: She quit smoking approximately 30 years ago. She uses alcohol rarely. She does report that she smokes marijuana occasionally. She is retired. REVIEW OF SYSTEMS: Constitutional: No fevers or anorexia. Cardiac: No chest pain or edema. No cough, hemoptysis, or shortness of breath. She does report nausea and vomiting. Denies any diarrhea. She does report right upper and right lower abdominal pain. No gross hematuria or dysuria. No focal weakness or sensory loss. No visual complaints or dysphagia. No arthralgias or myalgias. She does report that she has chronic pruritus, but no skin ulcerations. A review of 14 systems was completed and all others are negative. PHYSICAL EXAMINATION GENERAL: At this time, Ms. Calderon is a 67-year-old female. She appears well, sitting on the stretcher in the emergency room, she does not appear to be in any acute distress. VITAL SIGNS: Temperature was 96.9, heart rate was 82, respirations are 18, O2 sat is 100% on room air, blood pressure was 129/63. HEENT: Head is atraumatic, normocephalic. Eyes: EOMs are intact. Sclerae anicteric, not pale. Oral mucosa appears to be moist. NECK: Supple. LUNGS: Clear to auscultation bilaterally. No wheezes, rales, or rhonchi. CARDIAC: S1, S2. Regular rate and rhythm. No murmurs, rubs, or gallops. ABDOMEN: Soft. She does have right upper quadrant tenderness and mild right lower quadrant tenderness. Bowel sounds are present x4. EXTREMITIES: Pulses are +2 throughout. She moves all 4 extremities with 5/5 strength. NEUROLOGIC: She is alert and oriented x3. Speech is clear. There are no focal deficits. SKIN: Intact. DIAGNOSTIC STUDIES/LAB DATA: WBCs were 9.4, RBCs 4.43, hemoglobin 12.9, hematocrit was 39, platelet count was 221. APTT was 25.6. Sodium 139; potassium 3.6; chloride was 106; carbon dioxide 22; anion gap of 11; BUN 18; creatinine 0.63; lactic acid was 2.3, repeat lactic acid was 2.2; calcium was 10.0; magnesium 1.6; ammonia level was 38. C-reactive protein was less than 1. BNP was 149. Lipase was 15. Urine pH was 7; urine specific gravity was 1.026 ; urine protein was +1; ketones +1; urine blood, nitrites, bilirubin, uro- bilirubin, urine leukocyte esterase were all negative; urine wbc's were absent; urine rbc's were 1+; urine squamous epithelial cell was present; urine bacteria was +1; urine glucose was negative. X-ray of the abdomen, no acute findings. CT of the abdomen and pelvis, radiologist's impression: 1. Mildly enlarged liver with hepatic steatosis. 2. Normal appendix is documented. 3. Mild predominant sigmoid colon diverticulosis without findings of diverticulitis. ASSESSMENT AND PLAN: Ms. Calderon is a 67-year-old female that presented to the emergency room with complaints of nausea and vomiting. Routine lab work was obtained and she was found to have hypomagnesemia. We were asked to admit her under observation for: 1. Nausea and vomiting. I suspect this could be related to gastritis. I will give her IV fluids at 100 cc an hour. We will repeat lab work in the a.m. I will give her Tigan q.6 hours as needed for nausea. I will get a right upper quadrant ultrasound to evaluate for cholecystitis as she has significant tenderness to her right upper quadrant. 2. Hypomagnesemia. She did receive 1 g of magnesium IV. We will repeat a mag level in the morning. 3. Hypothyroid. We will continue her on levothyroxine 50 mcg p.o. daily. 4. Hypertension. We will continue her on her losartan 50 mg p.o. at bedtime and atenolol 25 mg p.o. daily. 5. Hyperlipidemia. We will continue her on Lipitor 80 mg p.o. at bedtime. 6. Asthma. We will continue her on her home medications for her asthma. 7. FEN. She will be placed on a clear liquid diet. 8. Code status. She is a full code. 9. DVT prophylaxis. She will be placed on Lovenox 40 mg subcu q.24 hours. 10. Disposition. Observation, inpatient medical floor. TIME SPENT: Time spent on this admission was greater than 60 minutes, half that time was spent in [id number] with the patient obtaining her history and physical, the other half of the time was spent going over the plan of care and implementing my plan of care. I did discuss this plan with my attending, Dr. Marcelle Palacios, and she is in agreement with my plan. CHELSEA BERUMEN, ENA [id number]/CPS #: [id number] FRANCES
[2017-07-19] MEDS: NS 0.9% 1000 ML* 1,000 ML IV SCH (04:01)
[2017-07-19] MEDS ORDERED: Levothyroxine TAB* 50 MCG TAB PO SCH (06:00)
[2017-07-19 06:06] LABS: ABS Basophils 0 10^3/ul (0-0.2); ABS Eosinophils 0 10^3/ul (0-0.6); ABS Lymphocytes 1.3 10^3/ul (1.0-4.8); ABS Monocytes 0.5 10^3/ul (0-0.8); ABS Neutrophils 8.2 10^3/ul (1.5-7.7); ABS Nucleated RBC 0 10^3/ul; Eosinophil % 0.1 % (0-6); Hematocrit 34 % (35-47); Hemoglobin 11.7 g/dl (12.0-16.0); Lymphocyte % 12.7 % (25-47); Mean Corpuscular HGB Conc 34 g/dl (31-36); Mean Corpuscular Hemoglobin 30 pg (27-31); Mean Corpuscular Volume 87 fL (80-97); Mean Platelet Volume 9 um3 (7.4-10.4); Nucleated Red Blood Cells % 0; Platelet Count 176 10^3/ul (150-450); Red Cell Distribution Width 15 % (10.5-15); White Blood Count 10.1 10^3/ul (3.5-10.8)
[2017-07-19 06:23] LABS: EGFR Non-African American 106.1 (>60)
[2017-07-19] MEDS: Mometasone/Formoter 200/5 MDI INH SCH (07:59)
--- NOTE | 2017-07-19 08:18 | ED ---
Luis Manuel Castaneda Angela, scribed for iWlmer Lopez MD on 07/18/17 at 1212 . Dizziness - HPI Summary HPI Summary: This pt is a 67 y/o female presenting to [facility] via EMS referred by PCP c/o dizziness and nausea. Pt reports she additionally has a headache, abd pain, and chills. She states she feels like she has foot stuck in her chest. Denies chest pain, SOB, vomiting. Pt currently feels like going to the bathroom for diarrhea. EMS reports the pt was hypotensive in the 80's systolic and bradycardic in the 50's at PCP's office. - History Of Current Complaint Stated Complaint: GENERAL ILLNESS Time Seen by Provider: 07/18/17 12:03 Hx Obtained From: Patient Onset/Duration: Still Present Timing: Days Severity Currently: Moderate Character: Dizzy Aggravating Factor(s): Nothing Alleviating Factor(s): Nothing Associated Signs And Symptoms: Positive: Nausea, Chills, Other: - POS: abdominal pain, headache. Negative: Vomiting, Chest Pain, SOB - Allergies/Home Medications Allergies/Adverse Reactions: Allergies Allergy/AdvReac Type Severity Reaction Status Date / Time Penicillins Allergy Unknown Rash Verified 07/18/17 12:39 environmental Allergy Unknown Wheezing Uncoded 07/18/17 12:39 Home Medications: Home Medications ALPRAZolam TAB* [Xanax TAB*] 0.25 - 0.5 mg PO Q6H PRN 07/18/17 [History Confirmed 07/18/17] ALPRAZolam TAB* [Xanax TAB*] 0.25 mg PO BID 07/18/17 [History Confirmed 07/18/17 ] Albuterol HFA INHALER* [Ventolin HFA Inhaler*] 2 puff INH Q4H PRN 07/18/17 [ History Confirmed 07/18/17] Ergocalciferol CAP* [Drisdol CAP*] 50,000 units PO WEEKLY 07/18/17 [History Confirmed 07/18/17] Levothyroxine TAB* [Synthroid TAB*] 50 mcg PO DAILY 07/18/17 [History Confirmed 07/18/17] Mometasone NASAL (NF) [Nasonex (NF)] 1 spray INH DAILY 07/18/17 [History Confirmed 07/18/17] Venlafaxine EXT RELEASE CAP* [Effexor Xr CAP*] 75 - 225 mg PO DAILY 07/18/17 [ History Confirmed 07/18/17] PMH/Surg Hx/FS Hx/Imm Hx Endocrine/Hematology History: Reports: Hx Diabetes - on oral meds Denies: Hx Anticoagulant Therapy, Hx Thyroid Disease Cardiovascular History: Reports: Hx Hypercholesterolemia, Hx Hypertension Denies: Hx Congestive Heart Failure, Hx Deep Vein Thrombosis, Hx Myocardial Infarction, Hx Pacemaker/ICD Respiratory History: Reports: Hx Asthma, Hx Seasonal Allergies, Hx Sleep Apnea - DIAGNOSED 25 YEARS AGO- UNSURE IF STILL HAS Denies: Hx Chronic Obstructive Pulmonary Disease (COPD), Hx Lung Cancer, Hx Pneumonia, Hx Pulmonary Embolism GI History: Reports: Hx Gastroesophageal Reflux Disease, Hx Irritable Bowel, Other GI Disorders - anal fissure with pelvic floor dysfunction Denies: Hx Gall Bladder Disease, Hx Gastrointestinal Bleed, Hx Ulcer, Hx Urosepsis History: Denies: Hx Kidney Stones, Hx Renal Disease Musculoskeletal History: Reports: Hx Arthritis - degenerative, Hx Back Problems , Hx Scoliosis - SLIGHT, Other Musculoskeletal History - obesity Sensory History: Reports: Hx Cataracts, Hx Contacts or Glasses - GLASSES, Hx Glaucoma Denies: Hx Hearing Aid Opthamlomology History: Reports: Hx Cataracts, Hx Contacts or Glasses - GLASSES , Hx Glaucoma Neurological History: Reports: Other Neuro Impairments/Disorders - PAIN CLINIC INJECTION Denies: Hx Dementia, Hx Migraine, Hx Seizures, Hx Transient Ischemic Attacks (TIA) Psychiatric History: Reports: Hx Anxiety - PRN MEDICATION FOR, Hx Depression Denies: Hx Panic Disorder, Hx Schizophrenia, Hx Bipolar Disorder - Cancer History Hx Chemotherapy: No Hx Radiation Therapy: No - Surgical History Surgery Procedure, Year, and Place: TONSILS, ARTHRO LT KNEE , RT KNEE 2010 , CATARACTS 2010,. Heart Cath in October 2012, no blockage. BOTOX FOR ANAL FISSURE-2016 Hx Anesthesia Reactions: No Infectious Disease History: Denies: Hx Clostridium Difficile, Traveled Outside the [place] in Last 30 Days - Family History Known Family History: Positive: Cardiac Disease - Positive CAD to father. Afib to mother, Hypertension, Diabetes - Social History Alcohol Use: Occasionally Hx Substance Use: Yes Substance Use Type: Reports: Marijuana Substance Use Comment - Amount & Last Used: occasional marijuana use- pt states it helps her back pain Hx Tobacco Use: Yes Smoking Status (MU): Former Smoker Type: Cigarettes Amount Used/How Often: social Length of Time of Smoking/Using Tobacco: 30 years Have You Smoked in the Last Year: No Review of Systems Positive: Chills. Negative: Fever Negative: Chest Pain Negative: Shortness Of Breath Positive: Abdominal Pain, Nausea. Negative: Vomiting Neurological: Other - POS: dizziness Positive: Headache All Other Systems Reviewed And Are Negative: Yes Physical Exam - Summary Physical Exam Summary: VITAL SIGNS: Reviewed. GENERAL: Patient is an ill-looking and pale female who is lying comfortable in the stretcher. Patient is not in any acute respiratory distress. HEAD AND FACE: No signs of trauma. No ecchymosis, hematomas or skull depressions. No sinus tenderness. EYES: PERRLA, EOMI x 2, No injected conjunctiva, no nystagmus. EARS: Hearing grossly intact. Ear canals and tympanic membranes are within normal limits. MOUTH: Oropharynx within normal limits. Dry oral mucosa. NECK: Supple, trachea is midline, no adenopathy, no JVD, no carotid bruit, no c- spine tenderness, neck with full ROM. CHEST: Symmetric, no tenderness at palpation LUNGS: Clear to auscultation bilaterally. No wheezing or crackles. CVS: Regular rate and rhythm, S1 and S2 present, no murmurs or gallops appreciated. ABDOMEN: Soft, non-tender. Positive bowel sounds. No signs of distention. No rebound no guarding, and no masses palpated. EXTREMITIES: FROM in all major joints, no edema, no cyanosis or clubbing. NEURO: Alert and oriented x 3. No acute neurological deficits. Speech is normal and follows commands. SKIN: Diaphoretic and warm. Pale looking. Pt seems to be clammy. Triage Information Reviewed: Yes Vital Signs On Initial Exam: Initial Vitals Temp Pulse Resp BP Pulse Ox 96.9 F 59 15 129/63 100 07/18/17 12:09 07/18/17 12:09 07/18/17 12:07/18/17 12:07/18/17 12:09 Vital Signs Reviewed: Yes Diagnostics - Laboratory Result Diagrams: 07/18/17 13:15 07/18/17 13:15 Lab Statement: Any lab studies that have been ordered have been reviewed, and results considered in the medical decision making process. - Radiology Abdomen XR Xray Interpretation: No Acute Changes - IMPRESSION: No evidence for acute finding. Dr. Lopez has reviewed this radiology report. Radiology Interpretation Completed By: Radiologist - CT Abdomen/Pelvis CT CT Interpretation: Positive (See Comments) - IMPRESSION: 1. Mildly enlarged liver with hepatosteatosis. 2. Normal appendix documented. Mild predominant sigmoid colon diverticulosis without findings of diverticulitis. Dr. Lopez has reviewed this radiology report. CT Interpretation Completed By: Radiologist - EKG 12:10 Cardiac Rate: Bradycardia EKG Rhythm: Sinus Bradycardia - at 57 bpm EKG Interpretation: No ST elevation. Re-Evaluation - Re-Evaluation First Eval Re-Evaluation Time: 14:20 Comment: Pt reports she is more nauseous and is vomiting. Dizzy Course/Dx - Course Assessment/Plan: This pt is a 67 y/o female presenting to [facility] via EMS referred by PCP c/o dizziness and nausea. Pt reports she additionally has a headache, abd pain, and chills. She states she feels like she has foot stuck in her chest. Denies chest pain, SOB, vomiting. Pt currently feels like going to the bathroom for diarrhea. EMS reports the pt was hypotensive in the 90's systolic and bradycardic in the 50s at PCP's office. Test results without any significant abnormalities except for lactic acid of 2.3, magnesium of 1.6, Urinalysis is negative for UTI. Abdomen XR reveals no evidence for acute finding. Because of the abdominal pain I decided to do an abdomen/pelvis CT. CT abdomen/pelvis: 1. Mildly enlarged liver with hepatosteatosis. 2. Normal appendix documented. Mild predominant sigmoid colon diverticulosis without findings of diverticulitis. She continues to have nausea and vomiting despite multiple doses of Reglan, Zofran, and Compazine. At this point I discussed the test results and findings with Dr. Palacios, hospitalist, who accepted the pt for admission. Pt is hemodynamically stable, alert and oriented x3. - Diagnoses Provider Diagnoses: Intractable vomiting, Abdominal pain - Provider Notifications Discussed Care Of Patient With: Marcelle Palacios Time Discussed With Above Provider: 15:32 Instructed by Provider To: Other - I discussed pt care with Dr. Palacios, hospitalist, who has agreed to admit the pt. Discharge - Discharge Plan Condition: Stable Disposition: ADMITTED TO [facility] The documentation as recorded by the Luis Manuel gonzalez Angela accurately reflects the service I personally performed and the decisions made by me, Wilmer Lopez MD.
[2017-07-19] MEDS ORDERED: Cholecalciferol TAB* 1000 UNITS PO SCH (09:00)
[2017-07-19] MEDS ORDERED: Atenolol TAB* 25 MG PO SCH (09:00)
[2017-07-19] MEDS ORDERED: Potassium Chlor TAB* 10 MEQ TAB.ER PO SCH (09:00)
[2017-07-19] MEDS ORDERED: Aspirin EC Low Dose* 81 MG TAB.EC PO SCH (09:00)
[2017-07-19] MEDS: ALPRAZolam TAB* 0.25 MG PO SCH (09:03)
[2017-07-19] MEDS: Trimethobenzamide IM* 100 MG/ML 2 ml VIAL IM PRN (09:09)
[2017-07-19 13:43] VITALS: BP 132/60
--- NOTE | 2017-07-19 13:51 | PN ---
Subjective Date of Service: 07/19/17 Interval History: Patient seen and examined at bedside. Denies fever, chills, shortness of breath , chest discomfort, V/D. Pt states that the nausea and dry heaves have resolved from this AM. Pt also reports improvement in headache that she was having this AM. She is tolerating a clear liquid diet and doesn't feel she is ready to advance her diet yet. She would like to go home today and slowly increase her diet at home. Family History: Unchanged from Admission Social History: Unchanged from Admission Past Medical History: Unchanged from Admission Objective Active Medications: Acetaminophen (Tylenol Tab*) 650 mg PO Q4H PRN Reason: FEVER/PAIN Al Hydrox/Mg Hydrox/Simethicone (Maalox Plus*) 30 ml PO Q6H PRN Reason: INDIGESTION Albuterol (Ventolin Hfa Inhaler*) 2 puff INH Q4H PRN Reason: SHORTNESS OF BREATH Alprazolam (Xanax Tab*) 0.25 mg PO BID MONICA Aspirin (Aspirin Ec Low Dose*) 81 mg PO DAILY MONICA Atenolol (Tenormin Tab*) 25 mg PO DAILY MONICA Atorvastatin Calcium (Lipitor*) 80 mg PO BEDTIME MONICA Cholecalciferol (Vitamin D Tab*) 2,000 units PO DAILY MONICA Enoxaparin Sodium (Lovenox(*)) 40 mg SUBCUT Q24H MONICA Sodium Chloride (Ns 0.9% 1000 Ml*) 1,000 mls @ 100 mls/hr IV PER RATE MONICA Levothyroxine Sodium (Synthroid Tab*) 50 mcg PO 0600 MONICA Losartan Potassium (Cozaar Tab*) 50 mg PO BEDTIME MONICA Mometasone Furoate/Formoterol Fumar (Dulera 200/5 Mdi*) 2 puff INH BID MONICA Montelukast Sodium (Singulair Tab*) 10 mg PO BEDTIME MONICA Ondansetron HCl (Zofran Inj*) 4 mg IV Q6H PRN Reason: NAUSEA Potassium Chloride (Klor Con Er Tab*) 10 meq PO DAILY MONICA Prochlorperazine Edisylate (Compazine Inj*) 10 mg IV Q6H PRN Reason: NAUSEA/ VOMITING Trimethobenzamide HCl (Tigan Im*) 200 mg IM Q6H PRN Reason: NAUSEA Vital Signs - 8 hr 07/19/17 07/19/17 07/19/17 06:07 08:00 08:02 Temperature 98.7 F Pulse Rate 66 62 Respiratory 15 14 14 Rate Blood Pressure 113/62 (mmHg) O2 Sat by Pulse 97 96 Oximetry 07/19/17 07/19/17 07/19/17 09:03 11:02 11:21 Temperature 98.5 F Pulse Rate 45 Respiratory 14 16 16 Rate Blood Pressure 150/66 (mmHg) O2 Sat by Pulse 99 Oximetry 07/19/17 13:33 Temperature 98.4 F Pulse Rate 55 Respiratory Rate Blood Pressure 132/60 (mmHg) O2 Sat by Pulse 100 Oximetry Oxygen Devices in Use Now: None Appearance: NAD, laying in bed Ears/Nose/Mouth/Throat: Mucous Membranes Moist Respiratory: Symmetrical Chest Expansion and Respiratory Effort, Clear to Auscultation Cardiovascular: NL Sounds; No Murmurs; No JVD, RRR Abdominal: NL Sounds; No Tenderness; No Distention Extremities: No Edema Skin: No Rash or Ulcers Neurological: Alert and Oriented x 3, NL Muscle Strength and Tone Lines/Tubes/Other Access: Clean, Dry and Intact Peripheral IV - site benign Nutrition: Taking PO's Result Diagrams: 07/19/17 05:53 07/19/17 05:53 Assess/Plan/Problems-Billing Assessment: Ms. Calderon is a 67 yo female with PMH significant for anxiety, chronic low back pain, HTN, HLD, DM, and asthma who presented to the emergency room with complains of nausea and vomiting. - Patient Problems (1) Nausea & vomiting Code(s): R11.2 - NAUSEA WITH VOMITING, UNSPECIFIED SNOMED Code(s): 63829141 Comment: - Resolved - Suspect secondary to gastritis - Tolerating clear liquids, advance to bland diet as tolerated (2) Headache Status: Acute Code(s): R51 - HEADACHE SNOMED Code(s): 37122539 Comment: - Resolved (3) Hypomagnesemia Code(s): E83.42 - HYPOMAGNESEMIA SNOMED Code(s): 107915980 Comment: - Resolved - Suspect secondary to vomiting (4) Hypothyroidism Code(s): E03.9 - HYPOTHYROIDISM, UNSPECIFIED SNOMED Code(s): 49114227 Comment: - TSH on 06/21/2017, 1.17 - Continue levothyroxine (5) HTN (hypertension) Code(s): I10 - ESSENTIAL (PRIMARY) HYPERTENSION SNOMED Code(s): 30811453 Comment: - SBP 110-150's - Continue losartan and atenolol (6) HLD (hyperlipidemia) Code(s): E78.5 - HYPERLIPIDEMIA, UNSPECIFIED SNOMED Code(s): 01668874 Comment: - Continue lipitor (7) Asthma Code(s): J45.909 - UNSPECIFIED ASTHMA, UNCOMPLICATED SNOMED Code(s): 805079594 Comment: - Continue home medications (8) DVT prophylaxis Code(s): GFC4496 - SNOMED Code(s): 312065342 (9) Full code status Code(s): Z78.9 - OTHER SPECIFIED HEALTH STATUS SNOMED Code(s): 518591710 Status and Disposition: OBV. Stable for discharge to home.
--- NOTE | 2017-07-20 12:03 | DS ---
CC: Jesus Manuel Robertson MD * DISCHARGE SUMMARY: DATE OF ADMISSION: 07/18/17 DATE OF DISCHARGE: 07/19/17 ATTENDING PHYSICIAN: Meliton Avitia MD * (dictated by Roselia Harris NP) PRIMARY CARE PROVIDER: Jesus Manuel Robertson MD. PRIMARY DIAGNOSES: 1. Nausea and vomiting suspected secondary to gastritis, resolved. 2. Hypomagnesium suspect secondary to vomiting. SECONDARY DIAGNOSES: 1. Hypothyroidism. 2. Hypertension. 3. Hyperlipidemia. 4. Asthma. STUDIES WHILE IN THE HOSPITAL: Abdomen x-ray on 07/18/17. Radiologist impression: No evidence for acute findings. Abdomen and pelvis CT on 07/18/17. Radiologist impression: Mildly enlarged liver with hepatosteatosis. Normal appendix documented. Mild predominant sigmoid colon diverticulosis without findings of diverticulitis. Abdominal ultrasound on 07/18/17. Radiologist impression: Mildly enlarged liver with mild hepatic steatosis. No evidence for cholelithiasis or biliary duct dilation is noted. DISCHARGE MEDICATIONS: New home medication: Acetaminophen 650 mg oral every 4 hours as needed for fever or pain. Continued home medications: 1. Aspirin 81 mg oral daily. 2. Advair Diskus 250/50, 1 puff inhalation twice daily. 3. Singulair 10 mg oral twice daily. 4. Losartan 50 mg oral daily at bedtime. 5. Atorvastatin 80 mg oral daily at bedtime. 6. Metformin 500 mg oral twice daily. 7. Potassium chloride 10 mEq oral daily. 8. Vitamin D 2000 units oral daily. 9. Atenolol 25 mg oral daily. 10. Albuterol HFA inhaler 2 puffs inhalation every 4 hours as needed for shortness of breath or wheeze. 11. Nasonex 1 spray to both nares daily. 12. Ergocalciferol 50,000 units oral weekly. 13. Effexor XR 75 mg oral every day. 14. Xanax 0.25/0.5 mg every 6 hours as needed for anxiety. 15. Levothyroxine 50 mcg oral daily. 16. Xanax 0.25 mg oral twice daily. HISTORY OF PRESENT ILLNESS/HOSPITAL COURSE: Ms. Calderon is a 67-year-old female with past medical history significant for anxiety, chronic low back pain , hypertension, high cholesterol, diabetes and asthma who presented to the emergency room with complaints of 1 day of nausea and vomiting and just not feeling well. Prior to that, the patient had been in her normal state of health with no symptoms. The patient states that the night prior to her presentation, she went out to eat and when she got home she started feeling ill. She went to bed, woke up at 5 a.m. with nausea and vomiting. Approximately 1 year ago she had similar symptoms that subsided after having IV fluids and antiemetics. Due to her symptoms, she presented to the emergency room for further evaluation of her symptoms. While in the emergency room, she had labs remarkable for low magnesium. No leukocytosis. Negative urinalysis. Mild lactic acidosis. She had an abdominal x- ray without significant findings and abdomen and pelvis CT without significant findings and the hospitalists were asked to evaluate the patient for admission. While in the hospital, the patient had an abdominal ultrasound showing no significant findings. No signs of acute cholecystitis. Her hypomagnesium resolved. Her lactic acidosis resolved. Eventually after IV fluids and antiemetics, her nausea resolved. She also had a headache that resolved. She is tolerating clear liquids and felt ready for discharge today. Ms. Calderon is stable for discharge to home today. Vital signs are as follows: Temperature 98.4, heart rate 55, respiratory rate 16, O2 saturation 100% on room air, blood pressure 132/60. DISCHARGE PLAN: Ms. Calderon will be discharged to home, activity as tolerated. She will be on a clear liquid, advance to a bland diet until feeling well and then will resume her regular diet. In regards to her gastritis, this appears to have resolved, her hypomagnesium has resolved. She has been slightly hypertensive during her stay. I recommend following her blood pressure as outpatient. She may need to have her antihypertensive adjusted once she is out of her acute illness. She has a followup appointment with her primary care provider. She has an appointment with Yojana ENA, on 07/23/17 at 9:30 a.m. She will resume her usual her usual home medications. It is noted that she had a CAT scan and will resume her metformin in the morning which will place her almost 48 hours post CAT scan. The patient has been instructed to return to emergency room for any shortness of breath or chest pain. This is a summarized report of complex medical history and hospital stay. For further details, please see the entire medical record. TIME SPENT: Time for this discharge was approximately 50 minutes, greater than half of that was spent [id number] with the patient discussing discharge plans and instructions. CONDITION ON DISCHARGE: Stable. ROSELIA HAYWOOD, ENA [id number]/CPS #: [id number] FRANCES
== END 2017-07-19 15:15 | disposition home or self-care (01) ==
LOC: ED 11:59 → MED 15:45
PROVIDERS: ADMIT Internal Medicine; ATTEND Internal Medicine
DX: R11.2 Nausea with vomiting, unspecified (principal); R10.9 Unspecified abdominal pain; I10 Essential (primary) hypertension; Z87.891 Personal history of nicotine dependence; R51 Headache; E83.42 Hypomagnesemia; E03.9 Hypothyroidism, unspecified; E78.5 Hyperlipidemia, unspecified; J45.909 Unspecified asthma, uncomplicated; M54.5 Low back pain; E11.9 Type 2 diabetes mellitus without complications; Z79.82 Long term (current) use of aspirin
CPT/HCPCS: 36415; 74019; 74177; 76705; 80048; 80053; 81003; 81015; 82140; 82150; 82550; 83605; 83690; 83735; 83880; 84484; 85025; 85730; 86140; 86803; 87086; 93005; 94640; 96361; 96374; 96375; 99284; A9270-GY; G0378; J0780; J1650; J2405; J2765; J3250; J3475; Q9967

== ENCOUNTER 2017-11-06 11:00 | Inpatient (IN) | payer OTHER ==
--- NOTE | 2017-11-01 11:54 | HP ---
AMENDED REPORT NOW INCLUDES COSIGNER DESIGNATION - ESIGNED BEFORE ADJUSTMENT HISTORY AND PHYSICAL: DATE OF ADMISSION/SURGERY: 11/06/17 SURGEON: Anastacia Zacarias MD.* (DICTATED BY RUIZ ERVIN) PROCEDURE: Right total hip arthroplasty. CHIEF COMPLAINT: Right hip pain. HISTORY OF PRESENT ILLNESS: Ms. Calderon is a 67-year-old female with complaints of right hip pain secondary to advanced osteoarthritis. She has failed conservative treatment and elected to proceed with a right total hip arthroplasty which is scheduled for 11/06/[address] Zacarias. PAST MEDICAL HISTORY: 1. Hypertension. 2. Asthma. 3. Sleep apnea. 4. Diabetes. 5. GERD. 6. Hypothyroidism. PAST SURGICAL HISTORY: 1. Bilateral knee arthroscopies. 2. Tonsillectomy. 3. Anal fissure surgery. CURRENT MEDICATIONS: 1. Atenolol 25 mg daily. 2. Cozaar 50 mg daily. 3. Hydrochlorothiazide 25 mg daily. 4. Potassium chloride 10 mEq daily. 5. Lipitor 80 mg q.h.s. 6. Effexor 225 mg daily. 7. Metformin 500 mg once daily. 8. Singulair 10 mg daily. 9. Levothyroxine 50 mcg daily. 10. Advair Diskus twice daily. 11. Vitamin D. 12. Calcium. 13. Vitamin E. ALLERGIES: PENICILLIN. FAMILY HISTORY: Coronary artery disease, diabetes and bleeding disorder unknown. SOCIAL HISTORY: She is a 67-year-old female. She lives with her . She does report using marijuana for pain and uses alcohol rarely. REVIEW OF SYSTEMS: A complete 14-point review of systems was reviewed with the patient and was positive for asthma, diabetes, and hypothyroidism, GERD, and occasional palpitations. She denies history of DVT, PE, hepatitis, HIV, or anesthesia problems. PHYSICAL EXAMINATION GENERAL: She is well developed, well nourished, in no acute distress. VITAL SIGNS: She stands 62 inches tall, weighs 180 pounds. Her blood pressure is 116/70. Her heart rate is 78. HEENT: Normocephalic, atraumatic. NECK: Supple. No palpable lymph nodes. PULMONARY: The lungs are clear to auscultation bilaterally. CARDIO: Regular rate and rhythm. Strong S1, S2. ABDOMEN: Soft, nontender, nondistended. NEUROLOGIC: She is alert and oriented x3. MUSCULOSKELETAL: Right lower extremity, the skin is intact. There are no open wounds or abrasions. She walks with an antalgic type gait favoring her right hip. She has decreased internal and external rotation of the right hip. 2+ dorsalis pedis pulses, intact sensation and her lower extremity muscle group strengths are intact at 5/5. ASSESSMENT AND PLAN: Ms. Calderon is a 67-year-old female with end-stage osteoarthritis of the right hip. She has failed conservative treatment and elected to proceed with a right total hip arthroplasty, which is scheduled for 11/06/[address] Zacarias discussed the risks and the benefits of the surgery at today's visit. All of her questions were answered. She will follow up with Dr. Zacarias 2 weeks after the surgery. RUIZ ERVIN [id number]/[facility] #: [id number] MTDLaly
[~2017-11-06 11:00] MED LIST changes: +Buffered Lidocaine 0.9% SYRIN* 5 ML/SYR SYRINGE INTRADERM ONE; +Dexamethasone TAB* 4 MG PO ONE; +DiMENhydriNATE IV* 50 MG/ML VIAL IV PUSH PRN; +Famotidine IV* 10 MG/ML 2 ML (20 mg) IV ONE; +Gabapentin CAP(*) 300 MG PO ONE; +Morphine INJ* 2 MG/ML 1 ML CARPUJECT IV PRN; -NS 0.9% 1000 ML* 1,000 ML IV ONE; +Naloxone* 0.4 MG/ML 1 ML VIAL IV PRN; +Ondansetron INJ* 2 MG/ML VIAL ONE; -PROCHLORPERAZINE INJ 5 MG/ML 2 ML VIAL IV ONE; +PROCHLORPERAZINE INJ 5 MG/ML 2 ML VIAL IV PRN; -Pantoprazole IV* 40 MG IV ONE; +Scopolamine 1.5 mg* PATCH TRANSDERM ONE
--- OUTSIDE RECORDS SUMMARY | 2017-11-06 12:44 | XMS REPORT ---
:1950 External Reference #:[id number] Author Organization [employer] Address [address] [place] [address] Phone [phone] Care Team Providers Name Role Phone Jesus Alberto Robertson MD Primary Care Physician Unavailable Payers Type Date Identification Numbers Payment Provider Subscriber Commercial Policy Number: [id number] [employer] Number: [id number] [id number] PayID: [id number] [place] [address] Problems Date Description Provider Status Onset: 03/19/2013 Obstructive sleep apnea syndrome Linsey Canas M.D. Active Onset: 03/19/2013 Essential hypertension Linsey Canas M.D. Active Onset: 03/19/2013 Obesity Linsey Canas M.D. Active Onset: 03/19/2013 Palpitations Linsey Canas M.D. Active Onset: 11/09/2016 Neck pain Krishan Garcia MD Active Onset: 11/09/2016 Strain of musc/tend the rotator cuff of Krishan Garcia MD Active left shoulder, subs Onset: 11/09/2016 Localized, secondary osteoarthritis of Krishan Garcia MD Active the shoulder region Onset: 11/09/2016 Injury of shoulder region Krishan Garcia MD Active Onset: 08/10/2017 Localized, primary osteoarthritis of the Anastacia Zacarias M.D. Active pelvic region and thigh Onset: 09/17/2017 Localized, primary osteoarthritis Anastacia Zacarias M.D. Active Family History Date Family Member(s) Problem(s) Comments General Diabetes General Heart Disease General Hypertension General Stroke General fctor 8 Father Coronary Artery Disease (CAD) Mother Atrial Fibrillation Mother Stroke Mother Blood Disorder factor VIII deficiency Paternal Grandfather Coronary Artery Disease (CAD) Social History Type Date Description Comments Marital Status Lives With Spouse Occupation Retired ETOH Use Denies alcohol use Smoking Patient is a former smoker Recreational Drug Use Denies Drug Use Exercise Type/Frequency Exercises sporadically Allergies, Adverse Reactions, Alerts Date Description Reaction Status Severity Comments 10/08/2012 Penicillin active Medications Medication Date Status Form Strength Qnty SIG Indications Ordering Provider Atenolol 10/22 Active Tablets 25mg 90tab 1 by Linsey s mouth Missael, every day M.D. Cozaar Active Tablets 50mg 30tab 1 po qd Unknown / s Hydrochlorothiazid Active Tablets 25mg 30tab 1 po qd Unknown e / s Potassium Chloride Active Tablets ER 10Meq 90tab 1 po qd Unknown ER / s Lipitor Active Tablets 80mg 30tab 1 po qhs Unknown / s Effexor XR Active Caps ER 225mg 30cap 1 po qd Unknown /0000 24HR s Metformin HCL ER Active Tablets ER 500mg 30tab 1 po qd Unknown / 24HR s Singulair Active Tablets 10mg 90tab 1 po qd / s Levothyroxine Active Tablets 50mcg 1 by Unknown Sodium /0000 mouth every day Ambien Hx Tablets 10mg 30tab 1 po qhs Unknown /0000 s prn sleep - insomnia 08/09 Aspirin Hx Tablets 81mg 1 po qd / - 08/09 Vitamin D Hx 50,000mg once a Unknown / week - 08/09 Ventolin HFA Hx Aerosol 108(90Bas 1unit 2 puffs Unknown /0000 e) s bid - mcg/Act 08/09 Nasonex Hx Suspension 50mcg/Act 1unit 2 sprays Unknown /0000 s to each - nostril 08/09 daily Advair Diskus Hx Unknown /0000 - 08/09 Nitrostat Hx Tablets Sub 0.4mg 25tab one sl Unknown /0000 s q5min up - to 3 08/09 doses prn /2018 Albuterol Sulfate 00 Hx Unknown /0000 - 08/09 Medications Administered in Office Medication Date Status Form Strength Qnty SIG Indications Ordering Provider Depomedrol 40MG 09/17/ Administered Injection Anastacia 2017 Ashley Zacarias Triamcinolone 11/09/ Administered Injection Zaneb (Kenalog) 2016 MD Jose Technetium TC 10/21/ Administered Injection Linsey 99M Tetrofosmin, 2012 Boyd Canas Unit Dose Up M.D. To 40 Millicuries Vital Signs Date Vital Result Comment 10/29/2017 Height 62 inches 5'2" Weight 180.00 lb BP Systolic Sitting 116 mmHg BP Diastolic Sitting 70 mmHg Respiratory Rate 16 /min Body Temperature 97.7 F BMI (Body Mass Index) 32.9 kg/m2 09/17/2017 Height 62 inches 5'2" Weight 180.00 lb Body Temperature 97.6 F BMI (Body Mass Index) 32.9 kg/m2 08/10/2017 Height 62 inches 5'2" Weight 185.00 lb Heart Rate 68 /min BP Systolic 120 mmHg BP Diastolic 84 mmHg BMI (Body Mass Index) 33.8 kg/m2 11/09/2016 Height 62 inches 5'2" Weight 194.00 lb Heart Rate 70 /min BP Systolic 128 mmHg BP Diastolic 78 mmHg Body Temperature 96.7 F Pain Level 10 BMI (Body Mass Index) 35.5 kg/m2 03/19/2013 Height 63.5 inches 5'3.50" Weight 222.00 lb Heart Rate 60 /min BP Systolic 110 mmHg Ra large cuff BP Diastolic 82 mmHg Ra large cuff BP Systolic Standing 110 mmHg Ra BP Diastolic Standing 80 mmHg Ra BMI (Body Mass Index) 38.7 kg/m2 Results Test Date Test Result H/L Range Note Laboratory test finding 10/23/2017 Vitamin D Total 25(Oh) 29.7 ng/mL 20- 50 Hepatitis C Antibody Nonreactive Nonreactive Basic Metabolic Panel 10/23/2017 Sodium 142 mmol/L 139-145 Potassium 4.3 mmol/L 3.5-5.0 Chloride 107 mmol/L 101-111 Co2 Carbon Dioxide 31 mmol/L 22-32 Anion Gap 4 mmol/L 2-11 Glucose 100 mg/dL 70-100 Blood Urea Nitrogen 16 mg/dL 6-24 Creatinine 0.60 mg/dL 0.51-0.95 BUN/Creatinine Ratio 26.7 High 8-20 Calcium 9.6 mg/dL 8.6-10.3 Egfr Non- 100.0 >60 Egfr 128.6 >60 1 Laboratory test finding 10/23/2017 Hemoglobin A1c (Glyco 6.1 % High 4.0- 5.6 2 HGB) CBC No Diff 11/01/2012 White Blood Count 9.2 10^3/uL 4.8-10.8 Red Blood Count 4.41 10^6/uL 4.0-5.4 Hemoglobin 12.8 g/dL 12.0-16.0 Hematocrit 39 % 35-47 Mean Corpuscular Volume 89 fL 80-97 Mean Corpuscular Hemoglobin 29 pg 27-31 Mean Corpuscular HGB Conc 33 g/dL 31-36 Red Cell Distribution Width 14 % 10.5-15 Platelet Count 235 10^3/uL 150-450 Mean Platelet Volume 10 um3 7.4-10.4 Basic Metabolic Panel 11/01/2012 Sodium 142 mmol/L 133-145 Potassium 3.6 mmol/L 3.5-5.0 Chloride 104 mmol/L 101-111 Co2 Carbon Dioxide 29.0 mmol/L 22-32 Anion Gap 9.0 mmol/L 2-11 Glucose 94 mg/dL 70-100 Blood Urea Nitrogen 19 mg/dL 6-24 Creatinine 0.80 mg/dL 0.50-1.40 BUN/Creatinine Ratio 23.8 High 8-20 Calcium 10.0 mg/dL High 8.1-9.9 Egfr Non- 72.9 >60 Egfr 93.8 >60 3 Inr/Protime 11/01/2012 Inr 0.82 Low 0.87-0.97 Laboratory test finding 11/01/2012 Activated Partial 25.9 seconds 22.18- 37.18 Thrombo Time 1 Because ethnic data is not always readily available, this report includes an eGFR for both -Americans and non- Americans. The National Kidney Disease Education Program (NKDEP) does not endorse the use of the MDRD equation for patients that are not between the ages of 18 and 70, are , have extremes of body size, muscle mass, or nutritional status, or are non- or non-. According to the National Kidney Foundation, irrespective of diagnosis, the stage of the disease is based on the level of kidney function: Stage Description GFR(mL/min/1.73 m(2)) 1 Kidney damage with normal or decreased GFR 90 2 Kidney damage with mild decrease in GFR 60-89 3 Moderate decrease in GFR 30-59 4 Severe decrease in GFR 15-29 5 Kidney failure <15 (or dialysis) 2 Therapeutic target for the treatment of diabetes mellitus patients is <7% HBA1C, and in selective patients <6.0%. Please refer to Citizen Of [place] Diabetes Association diabetic care guidelines for further information. 3 Because ethnic data is not always readily available, this report includes an eGFR for both -Americans and non- Americans. The National Kidney Disease Education Program (NKDEP) does not endorse the use of the MDRD equation for patients that are not between the ages of 18 and 70, are , have extremes of body size, muscle mass, or nutritional status, or are non- or non-. According to the National Kidney Foundation, irrespective of diagnosis, the stage of the disease is based on the level of kidney function: Stage Description GFR(mL/min/1.73 m(2)) 1 Kidney damage with normal or decreased GFR 90 2 Kidney damage with mild decrease in GFR 60-89 3 Moderate decrease in GFR 30-59 4 Severe decrease in GFR 15-29 5 Kidney failure <15 (or dialysis) Procedures Date CPT Code Description Status 09/17/2017 04538 Inject/Drain Joint/Bursa Major W/O US Completed 11/09/201608162 Inject/Drain Joint/Bursa Major W/O US Completed 07/10/2013 03751 Polysomnography Sleep Staging 4+ Parameters Completed 03/19/2013 16470 EKG Tracing & Interpretation Completed 11/15/2012 25477 ECHO Transthoracic, Real-Time 2D With Doppler And Color Completed Flow 11/05/2012 78170 Left Heart Cath. Incl S/I Coronaries, Angio S/I V Gram Completed If Done 10/21/2012 23105 Stress Test Completed 10/21/2012 22932 Myocardial Perfusion Imaging Tomographic (Spect) Completed Multiple Studies 10/08/2012 13096 EKG Tracing & Interpretation Completed Encounters Type Date Location Provider CPT E/M Dx Office Visit 09/17/2017 [facility] Z[facility] M.D. 65151 M16.11 3:00p [facility] M17.11 W19.xxxA M25.551 M25.561 M25.461 Office Visit 08/10/2017 9:30a [facility] M.D. 41670 M25.551 C.Jg M25.552 M16.0 [facility] [address] R11.2 Assoc[facility]pc [facility]PUT[facility] CONS[facility] Hospitalists E83.42 I10 E78.5 Office Visit 07/18/2017 3:19p [facility] Ass[facility]pc Chelsea Berumen, 84724 R11.2 Hospitalists COMPUTING CONSULTANT E83.42 I10 E78.5 Office Visit 11/09/2016 2:30p [facility] [place] [address] S46.012D Natasha M54.2 M19.212 S46.102A S46.012A M19.012 Office Visit 06/20/2013 1:20p [facility] Madhav Martinez, 46324 780.59 M.DStacy 780.79 786.09 Office Visit 03/19/2013 8:45a [facility] Falguni Canas M.D. 28074 327.23 Bee Producer 401.9 278.00 785.1 Office Visit 11/13/2012 2:45p [facility] Falguni Canas M.D. 23021 427.0 Bee Producer 785.1 401.9 Office Visit 11/01/2012 1:45p [facility] Falguni Canas M.D. 86585 786.50 Bee Producer AT [facility] 427.0 785.1 401.9 Office Visit 10/08/2012 9:45a [facility] Falguni Canas M.D. 18193 786.50 Bee Producer 786.09 272.0 278.00 Plan of Care Future Appointment(s):11/19/2017 10:45 am - Anastacia Zacarias M.D. at [facility]11/06/2017 11:30 am - Killian Cruz PA-C at [facility]11/06/2017 11:30 am - RUIZ Holly at [facility]11/06/2017 11:30 am - Anastacia Zacarias M.D. at [facility]10/29/2017 - Anastacia Zacarias M.D.M16.11 Unilateral primary osteoarthritis, right hipFollow up:Follow up: 2 weeks after uqsauvvK60.551 Pain in right hip
[2017-11-06] MEDS ORDERED: KETAMINE HCL* 50 MG/ML 10 ML VIAL ONE (12:53)
[2017-11-06] MEDS ORDERED: Midazolam* 1 MG/ML 10 ML VIAL (10 MG) ONE (12:53)
[2017-11-06] MEDS ORDERED: fentaNYL* 50 MCG/ML 2 ML VIAL (100 MCG VIAL) ONE ×2 (12:53→19:26)
[2017-11-06] MEDS ORDERED: Scopolamine 1.5 mg* PATCH ONE (13:00)
[2017-11-06] MEDS ORDERED: Famotidine IV* 10 MG/ML 2 ML (20 mg) ONE (13:00)
[2017-11-06] MEDS ORDERED: Clindamycin 900 MG IVPREMIX(* 900 MG/50 ML SDV IV ONE (13:00)
[2017-11-06] MEDS ORDERED: Dexamethasone TAB* 4 MG ONE (13:00)
[2017-11-06] MEDS ORDERED: Ondansetron ODT TAB* 4 MG ONE (13:00)
[2017-11-06] MEDS ORDERED: Gabapentin CAP(*) 300 MG ONE (13:37)
[2017-11-06] MEDS ORDERED: Lidocaine 2% PF * 5 ML VIAL ONE (16:23)
[2017-11-06] MEDS ORDERED: Propofol* 500 MG/50 ML BTL ONE (16:23)
[2017-11-06] MEDS ORDERED: Bupivacaine 0.5% PF 10 ML VIAL INJ ONE (16:24)
[2017-11-06] MEDS ORDERED: ROPIVACAINE 5 MG/ML 30 ML BTL (0.5%) ONE (16:25)
--- NOTE | 2017-11-06 17:36 | RAD ---
Indication: RIGHT hip replacement. Comparison: October 25, 2017 Technique: Crosstable LEFT lateral decubitus AP view RIGHT hip and pelvis. Report: RIGHT hip prosthetic acetabular component in place. Femoral prosthetic component reamer/test fit device in place. No periprosthetic fracture evident. IMPRESSION: Intraoperative control film.
[2017-11-06] MEDS ORDERED: Bupivacaine 0.5% SDV PF* 30ML VIAL ONE (17:55)
[2017-11-06] MEDS ORDERED: Propofol* 10 MG/ML 20 ML BTL IV PUSH ONE (17:59)
[2017-11-06] MEDS ORDERED: Acetaminophen TAB* 325 MG PO PRN (18:23)
[2017-11-06] MEDS ORDERED: Polyethylene Glycol 3350* 17 GM PACKET PO PRN (18:23)
[2017-11-06] MEDS ORDERED: Ondansetron TAB* 4 MG PO PRN (18:23)
[2017-11-06] MEDS ORDERED: Bisacodyl SUPP* 10 MG SUPP PR PRN (18:23)
[2017-11-06] MEDS ORDERED: oxyCODONE/Acetamin 5/325 MG* TAB PO PRN (18:23)
[2017-11-06] MEDS ORDERED: Magnesium Hydroxide LIQ* 30 ML UDC PO PRN (18:23)
[2017-11-06] MEDS ORDERED: diPHENhydraMINE IV* 50 MG/ML 1 ml VIAL (BENADRYL) IV PRN (18:23)
--- NOTE | 2017-11-06 19:25 | RAD ---
Indication: Post op RIGHT total hip replacement. Comparison: Intraoperative exam of the same date. Technique: AP pelvis and AP and crosstable lateral views RIGHT hip. Report: RIGHT total hip replacement in place with anatomic alignment. No periprosthetic fracture evident. Surrounding soft tissue edema and subcutaneous emphysema. IMPRESSION: Unremarkable immediate postop appearance following RIGHT total hip replacement.
[2017-11-06] MEDS: fentaNYL* 50 MCG/ML 2 ML VIAL (100 MCG VIAL) IV PRN ×3 (19:29→19:46)
[2017-11-06] MEDS ORDERED: oxyCODONE/Acetamin 5/325 MG* TAB ONE (19:42)
[2017-11-06] MEDS: oxyCODONE/Acetamin 5/325 MG* TAB PO PRN (19:45)
[2017-11-06] MEDS: oxyCODONE TAB* 5 MG TAB PO PRN (20:48)
[2017-11-06] MEDS: Docusate CAP* 100 MG PO SCH (20:48)
[2017-11-06] MEDS: Magnesium Hydroxide LIQ* 30 ML UDC PO SCH (20:48)
[2017-11-06] MEDS ORDERED: Warfarin TAB(*) 6 MG PO ONE (21:00)
[2017-11-06] MEDS: Insulin LISPRO* 1 UNITS UNIT SUBCUT SCH (21:05)
--- NOTE | 2017-11-06 21:17 | CONSULT ---
Consult Consult: PCP: Erika Robertson MD Date/Time: 11/06/20172044 Reason for Consult: DM, HTN, HLD, hypothyroidism management HPI: Mrs Calderon is a 67YO obese female HX DM2, asthma, HTN, hypothyroidism, WILIAN , & GERD admitted for elective R total hip arthroplasty performed today. Pain is fairly well controlled, but could be better. She denies chest pain, SOB, N/V/ D, F/C, sweats, or other issues. PMedHx DM2 asthma HTN HLD hypothyroidism WILIAN not on CPAP GERD anxiety Ambulatory Orders Nursing to reconcile. Atorvastatin* [Lipitor 80 MG*] 80 mg PO QPM 08/01/12 Fluticasone-Salmeterol 250-50* [Advair Diskus 250-50*] 1 puff INH BID 08/01/12 Losartan TAB* [Cozaar TAB*] 50 mg PO QPM 08/01/12 Montelukast Sodium TAB* [Singulair 10 MG TAB*] 10 mg PO QPM 08/01/12 metFORMIN* [Glucophage 500 MG TAB *] 500 mg PO QAM 08/01/12 Potassium Chlor Tab* [K Dur Tab*] 10 meq PO QAM 10/11/12 Atenolol TAB* [Tenormin TAB* 25 MG] 25 mg PO QAM 06/21/17 Cholecalciferol TAB* [Vitamin D TAB*] 2,000 units PO QAM 06/21/17 ALPRAZolam TAB* [Xanax TAB*] 0.25 mg PO TID PRN 07/18/17 Albuterol HFA INHALER* [Ventolin HFA Inhaler*] 2 puff INH BID 07/18/17 Levothyroxine TAB* [Synthroid TAB*] 50 mcg PO QAM 07/18/17 Mometasone NASAL (NF) [Nasonex (NF)] 1 spray INH QAM 07/18/17 Calcium Carbonate CHEW TAB* [Tums*] 500 mg PO BID PRN 10/29/17 Ketoconazole 2 % CREAM (NF) [Nizoral 2% CREAM (NF)] 1 applic TOPICAL BID Venlafaxine HCl 3 tab PO QAM 10/29/17 Allergies Penicillins Allergy (Unknown, Verified 11/06/17 13:12) Rash niacin Allergy (Verified 11/06/17 13:12) [place] PSurgHx tonsillectomy anal fissure repair B knee arthroscopies SocHx: quit smoking ~30 years ago, rare alcohol, occasional marijuana, no other recreational drugs; lives with her ; full code status FamHx: positive for CAD, DM2, HTN, & an unknown bleeding issue ROS: as above, otherwise reviewed and all were negative vitals: Vital Signs Temp 36.3 C 11/06/17 20:00 Pulse 66 11/06/17 20:00 Resp 19 11/06/17 20:48 BP 127/70 11/06/17 20:00 Pulse Ox 99 11/06/17 20:00 Constitutional: NAD, normally developed, obese wihte female HEENM: atraumatic; sclera/conjunctiva: anicteric/clear; hearing: clinically intact; oropharynx: clear, mucosa moist Neck: soft tissue: non-tender; thyroid: normal Pulmonary: clear to auscultation bilaterally, good aeration, no accessory muscle use CV: RR/RR, normal S1S2, no carotid bruit, no jugular venous distention, 2+ B DP/ PT, no edema Abdominal: soft, non-distended, non-tender, no rebound/guarding/rigidity, normoactive bowel sounds, no hepatosplenomegaly or masses, no costovertebral angle tenderness Musculoskeletal: general: grossly intact, mildly tender to palpation of shins Integumental: R hip dressing clean & dry, otherwise normal appearance and texture of exposed skin Psychiatric orientation: AA&O to PPS affect: calm mood: cooperative eye contact: good content: reliable responses: timely insight: good Testing: reviewed from earlier this month, no significant abnormalities noted ECG (poor quality scan from outside facility dated 10/11/2017), personally reviewed: sinus bradycardia rate 59, no ischemia CXR (10/29/2017), personally reviewed: IMPRESSION: NO ACTIVE CARDIOPULMONARY DISEASE. Impression: 67F HX DM2, asthma, HTN, hypothyroidism, WILIAN, GERD, & anxiety admitted for elective R JIM performed today DIAGNOSIS & PLAN Primary POD zero elective R JIM : management per orthopedics : pain control : PT evaluation : supportive care Secondary DM2 : A1c 6.1% October : Q4H glucometry w/ correctional lispro : hold metformin : consistent carb diet asthma : continue albuterol, fluticasone/salmeterol, & montelukast HTN : continue losartan & atenolol HLD : continue atorvastatin hypothyroidism : continue levothyroxine WILIAN : not on CPAP GERD : omeprazole anxiety : continue alprazolam & venlafaxine
[2017-11-06] MEDS: Morphine VIAL* 4 MG/ML VIAL (1 ml vial) IV PRN (21:29)
[2017-11-06] MEDS ORDERED: Vancomycin(*) 1,000 MG in NS 0.9% 250 ML* 250 ML IVPB ONE (21:30)
[2017-11-06] MEDS ORDERED: ALPRAZolam TAB* 0.25 MG PO PRN (22:14)
[2017-11-07] MEDS: Morphine VIAL* 4 MG/ML VIAL (1 ml vial) IV PRN
[2017-11-07] MEDS: oxyCODONE TAB* 5 MG TAB PO PRN ×5 (03:17→22:14)
[2017-11-07 06:10] LABS: Hematocrit 32 % (35-47); Hemoglobin 10.9 g/dl (12.0-16.0); Mean Platelet Volume 8.9 um3 (7.4-10.4); Platelet Count 177 10^3/ul (150-450)
[2017-11-07] MEDS: Levothyroxine TAB* 50 MCG TAB PO SCH (06:15)
[2017-11-07] MEDS: oxyCODONE/Acetamin 5/325 MG* TAB PO PRN ×4 (06:15→19:00)
[2017-11-07 06:18] LABS: INR 0.91 (0.77-1.02)
[2017-11-07 06:28] LABS: EGFR Non-African American 106.1 (>60)
[2017-11-07] MEDS: Venlafaxine EXT RELEASE CAP* 75 MG PO SCH (08:28)
[2017-11-07] MEDS: Docusate CAP* 100 MG PO SCH ×2 (08:28→21:14)
[2017-11-07] MEDS: Magnesium Hydroxide LIQ* 30 ML UDC PO SCH ×2 (08:28→21:14)
[2017-11-07] MEDS: Atenolol TAB* 25 MG PO SCH (08:28)
[2017-11-07] MEDS: Vitamin THERAPEUTIC TAB PO SCH (08:28)
[2017-11-07] MEDS: Insulin LISPRO* 1 UNITS UNIT SUBCUT SCH ×4 (08:29→21:14)
[2017-11-07] MEDS: Mometasone/Formoter 200/5 MDI INH SCH ×2 (08:30→20:23)
[2017-11-07] MEDS: Cyclobenzaprine TAB* 10 MG PO PRN ×2 (12:21→17:16)
[2017-11-07] MEDS: Enoxaparin(*) 30 MG/0.3 ML SYR SUBCUT SCH (12:22)
--- NOTE | 2017-11-07 13:19 | PN ---
Progress Note - Progress Note Date of Service: 11/07/17 SOAP: Subjective: [Pt seen sitting up in chair this afternoon. She states she was having trouble with pain but had just taken some flexaril and now feels much better. She denies any chest pain, SOB, numbness, tingling, nausea or vomiting. ] Objective: [General: Pt is alert, awake and oriented. NAD MSK, RLE: Dressing is c/d/i, +df/pf. No tenderness to palpation of calves. Sensation intact distally. 2+ DP pulse.] Vital Signs Temp 98.3 F 11/07/17 11:32 Pulse 62 11/07/17 11:32 Resp 16 11/07/17 12:22 BP 143/71 11/07/17 11:32 Pulse Ox 98 11/07/17 11:32 Intake & Output 11/06/17 11/07/17 11/07/17 18:59 06:59 18:59 Intake Total 2200 800 Output Total 800 950 Balance 1400 -150 Weight 186 lb Intake: IV Fluids 2200 200 LR 2200 200 Oral 600 Output: Urine 0 Dye 650 950 Residual 150 Dye 16 Fr 150 Other: # Bowel Movements 0 Estimated Blood Loss 300 Comment Assessment: [POD 1 RTHA] Plan: [-continue with PT/OT - Continue with flexaril - Hospitalists co-manage - 8mg of warfarin this evening - possible dc tomorrow if she continues to keep pain under control. ]
--- NOTE | 2017-11-07 14:04 | PN ---
Subjective Date of Service: 11/07/17 Interval History: Patient in significant pain but reports increased relief with changing around timing of pain medications. Patient has had griffin out and is urinating well. Patient has been passing gas and denies CP, SOB, Dizziness, F/C, N/V, abdominal pain, dysuria, palpitations, numbness or tingling, or other pain. Family History: Unchanged from Admission Social History: Unchanged from Admission Past Medical History: Unchanged from Admission Objective Active Medications: Acetaminophen (Tylenol Tab*) 650 mg PO Q4H PRN PRN Reason: PAIN OR TEMPERATURE Alprazolam (Xanax Tab*) 0.25 mg PO TID PRN PRN Reason: ANXIETY Atenolol (Tenormin Tab*) 25 mg PO QAM [facility] Last Admin: 11/07/17 08:28 Dose: 25 mg Atorvastatin Calcium (Lipitor*) 80 mg PO QPM [facility] Bisacodyl (Dulcolax Supp*) 10 mg ID DAILY PRN PRN Reason: constipation Cyclobenzaprine HCl (Flexeril Tab*) 5 mg PO TID PRN PRN Reason: SPASMS Last Admin: 11/07/17 12:21 Dose: 5 mg Diphenhydramine HCl (Benadryl Iv*) 25 mg IV Q6H PRN PRN Reason: itching Docusate Sodium (Colace Cap*) 100 mg PO BID [facility] Last Admin: 11/07/17 08:28 Dose: 100 mg Enoxaparin Sodium (Lovenox(*)) 30 mg SUBCUT Q24H [facility] Last Admin: 11/07/17 12:22 Dose: 30 mg Lactated Ringer's (Lactated Ringers 1000 Ml Bag*) 1,000 mls @ 100 mls/hr IV PER RATE [facility] Last Admin: 11/06/17 21:30 Dose: 100 mls/hr Insulin Human Lispro (Humalog*) 0 units SUBCUT ACHS [facility]; Protocol Last Admin: 11/07/17 12:21 Dose: 3 units Lactulose (Lactulose*) 30 ml PO Q6H PRN PRN Reason: constipation Levothyroxine Sodium (Synthroid Tab*) 50 mcg PO 0600 [facility] Last Admin: 11/07/17 06:15 Dose: 50 mcg Losartan Potassium (Cozaar Tab*) 50 mg PO QPM [facility] Magnesium Hydroxide (Milk Of Magnesia Liq*) 30 ml PO BID [facility] Last Admin: 11/07/17 08:28 Dose: 30 ml Magnesium Hydroxide (Milk Of Magnesia Liq*) 30 ml PO Q6H PRN PRN Reason: constipation Mometasone Furoate/Formoterol Fumar (Dulera 200/5 Mdi*) 2 puff INH BID [facility] Last Admin: 11/07/17 08:30 Dose: 2 puff Montelukast Sodium (Singulair Tab*) 10 mg PO QPM [facility] Morphine Sulfate (Morphine Vial*) 2 mg IV Q2H PRN PRN Reason: PAIN Last Admin: 11/07/17 00:00 Dose: 2 mg Multivitamins (Theragran Tab*) 1 tab PO DAILY [facility] Last Admin: 11/07/17 08:28 Dose: 1 tab Ondansetron HCl (Zofran Tab*) 4 mg PO Q6H PRN PRN Reason: NAUSEA Oxycodone HCl (Roxycodone Tab*) 10 mg PO Q4H PRN PRN Reason: PAIN - SEVERE Last Admin: 11/07/17 12:21 Dose: 10 mg Oxycodone/Acetaminophen (Percocet 5/325 Tab*) 2 tab PO Q4H PRN PRN Reason: PAIN Last Admin: 11/07/17 10:05 Dose: 2 tab Oxycodone/Acetaminophen (Percocet 5/325 Tab*) 1 tab PO Q4H PRN PRN Reason: PAIN Pharmacy Profile Note (Scopolamine Patch Remove*) 1 note PATCH OFF ONCE ONE Stop: 11/09/17 06:01 Pharmacy Profile Note (Coumadin Daily Reminder*) 1 note FOLLOW UP 1700 [facility] Polyethylene Glycol/Electrolytes (Miralax*) 17 gm PO DAILY PRN PRN Reason: Constipation Venlafaxine HCl (Effexor Xr Cap*) 225 mg PO QAM [facility]; Protocol Last Admin: 11/07/17 08:28 Dose: 225 mg Warfarin Sodium (Coumadin Tab(*)) 8 mg PO ONCE@1700 [facility]; Protocol Stop: 11/07/17 17:01 Vital Signs - 8 hr 11/07/17 11/07/17 11/07/17 06:15 07:18 08:27 Temperature 98.1 F Pulse Rate 61 Respiratory 17 16 18 Rate Blood Pressure 116/66 (mmHg) O2 Sat by Pulse 98 Oximetry 11/07/17 11/07/17 11/07/17 08:28 10:05 10:43 Temperature Pulse Rate Respiratory 16 15 16 Rate Blood Pressure (mmHg) O2 Sat by Pulse 98 Oximetry 11/07/17 11/07/17 11/07/17 11:32 12:21 12:22 Temperature 98.3 F Pulse Rate 62 Respiratory 16 16 16 Rate Blood Pressure 143/71 (mmHg) O2 Sat by Pulse 98 Oximetry Oxygen Devices in Use Now: None Appearance: Patient is a 67yo female who appears stated age and is sitting in the bed in NAD. Eyes: No Scleral Icterus, PERRLA Ears/Nose/Mouth/Throat: NL Teeth, Lips, Gums, Clear Oropharnyx, Mucous Membranes Moist Neck: NL Appearance and Movements; NL JVP, Trachea Midline Respiratory: Symmetrical Chest Expansion and Respiratory Effort, Clear to Auscultation Cardiovascular: NL Sounds; No Murmurs; No JVD, RRR, No Edema Abdominal: NL Sounds; No Tenderness; No Distention, No Hepatosplenomegaly Lymphatic: No Cervical Adenopathy Extremities: No Clubbing, Cyanosis, - - 1+ Edema in RLE Skin: No Nodules or Sclerosis, - - Right hip incision covered with CDI dressing. Neurological: Alert and Oriented x 3, NL Sensation, NL Muscle Strength and Tone , - - CN II-XII intact. Result Diagrams: 11/07/17 05:51 11/07/17 05:51 Assess/Plan/Problems-Billing Assessment: Patient is a 67yo female with a PMH forDM, HTN, Asthma, WILIAN who is S/P RTHA and is doing well except for uncontrolled pain. - Patient Problems (1) Post-operative state Current Visit: Yes Status: Acute Code(s): Z98.890 - OTHER SPECIFIED POSTPROCEDURAL STATES SNOMED Code(s): 20452662 Comment: S/P RTHA, Management per primary team. H/H decreased to an expected degree monitor. Pain better controlled. Urinating with griffin out. No BM. PT/OT (2) WILIAN (obstructive sleep apnea) Current Visit: Yes Status: Acute Code(s): G47.33 - OBSTRUCTIVE SLEEP APNEA ( ADULT) (PEDIATRIC) SNOMED Code(s): 82887798 Comment: Non-Compliant with CPAP. Would recommend outpatient use. (3) Asthma Current Visit: No Status: Chronic Code(s): J45.909 - UNSPECIFIED ASTHMA, UNCOMPLICATED SNOMED Code(s): 923473822 Comment: Not in exacerbation. PRN albuterol. Continue combination inhalers. (4) HLD (hyperlipidemia) Current Visit: No Status: Chronic Code(s): E78.5 - HYPERLIPIDEMIA, UNSPECIFIED SNOMED Code(s): 05948693 Comment: Continue lipitor (5) HTN (hypertension) Current Visit: No Status: Chronic Code(s): I10 - ESSENTIAL (PRIMARY) HYPERTENSION SNOMED Code(s): 07420155 Comment: Normotensive Continue Atenolol and Losartan (6) Hypothyroidism Current Visit: No Status: Chronic Code(s): E03.9 - HYPOTHYROIDISM, UNSPECIFIED SNOMED Code(s): 17579446 Comment: Continue levothyroxine (7) DVT prophylaxis Current Visit: No Status: Acute Code(s): ZEZ7400 - SNOMED Code(s): 377501700 Comment: Lovenox to Warfarin (8) Full code status Current Visit: No Status: Acute Code(s): Z78.9 - OTHER SPECIFIED HEALTH STATUS SNOMED Code(s): 329552745 Status and Disposition: Inpatient, disposition per primary team
[2017-11-07] MEDS ORDERED: Albuterol 2.5 MG/3 ML NEB.SOL* (0.083%) INH PRN (14:07)
[2017-11-07] MEDS ORDERED: Warfarin TAB(*) 4 MG PO ONE (17:00)
[2017-11-07] MEDS ORDERED: Atorvastatin* 80 MG TAB PO SCH (18:00)
[2017-11-07] MEDS ORDERED: Montelukast Sodium TAB* 10 MG PO SCH (18:00)
[2017-11-07] MEDS ORDERED: Losartan TAB* 25 MG PO SCH (18:00)
--- NOTE | 2017-11-07 21:51 | OP ---
DATE OF OPERATION: 11/06/17 - ROOM #334 DATE OF : 52 SURGEON: Anastacia Zacarias MD SPRAY DRY OPERATOR: RUIZ Zabala. Mr. Cruz did help throughout the procedure with preparation of the leg, wound retraction, manipulation of the hip and wound closure. ANESTHESIOLOGIST: Dr. Perrin. ANESTHESIA: Spinal. PRE-OP DIAGNOSIS: Severe end-stage degenerative osteoarthritis of the right hip joint. POST-OP DIAGNOSIS: Severe end-stage degenerative osteoarthritis of the right hip joint. OPERATIVE PROCEDURE: Right total hip arthroplasty. HARDWARE USED: This is uncemented Michael total hip hardware. For the cup, a Tritanium cluster hole shell 50D, a single 60-mm screw was used. For the liner , a Trident X3 0 degree polyethylene insert 32D. For the stem, an Accolade TMZF size 3 with a 132-degree neck. For the head, a Biolox delta ceramic V40 femoral head 32 - 4. COMPLICATIONS: None. SPECIMEN: Bone and acetabular reaming from the right hip sent to Pathology. ESTIMATED BLOOD LOSS: 300 cc. BRIEF HISTORY/INDICATION: Ms. Calderon is a 67-year-old female with years of increasingly severe right hip pain. Radiographs showed advanced arthritis. She failed conservative treatment with anti-inflammatories, pain medication, and physical therapy. Due to continued pain and decreased quality of life, she elected to proceed with right total hip arthroplasty. Informed consent was obtained from the patient. She understood the risks of surgery included but were not limited to bleeding, infection, damage to nearby structures, continued pain, need for further surgery, intraoperative fracture, nerve palsy, hardware failure, loosening, dislocation, leg length discrepancy, stroke, heart attack, blood clot and . She wishes to proceed. INTRAOPERATIVE FINDINGS: Intraoperatively, the patient was noted to have severe end-stage arthritis with complete stiffness, loss of cartilage along the femoral head and acetabulum. The patient was noted to have significant osteopenia. DESCRIPTION OF PROCEDURE: Ms. Calderon was identified in the preanesthesia unit. Her right lower extremity was marked as the correct operative side. Informed consent was signed and placed in the chart. The patient was taken to the operating room and placed under spinal anesthesia. A Dye catheter was placed. The right lower extremity was prepped and draped in the usual sterile fashion. Preop time- out was made to correctly identify the patient's side and site. Appropriate perioperative antibiotics were given within 1 hour of incision. The patient was placed in the left lateral decubitus position on the peg board. All bony prominences were well padded. The right lower extremity was prepped and draped in the usual sterile fashion. Preop time-out was made to correctly identify the patient's side and site. Appropriate perioperative antibiotics were given within 1 hour of incision. A 12-cm posterior hip incision was made with a 10-blade and carried down to the lateral fascia. Lateral fascia was incised in line with the skin incision. Charnley retractor was placed. The piriformis and conjoint tendons were identified. These were elevated off the posterolateral femur with electrocautery and tagged with #5 Ethibond. Next, electrocautery was used to make a standard posterolateral capsular flap and this was also tagged with #5 Ethibond. The hip was care-fully dislocated. Lesser troch to center to the femoral head measured 50 mm. The oscillating saw was used to make a femoral neck cut. The femoral head was carefully removed. The femur was retracted anteriorly. After appropriate placement of the retractor, the acetabulum was easily visualized. A long handled knife was used to remove any remaining labrum from the acetabular rim. The acetabulum was sequentially reamed up to a size 49. A 49 reamer obtained a bleeding subchondral bone bed. 49 trial had excellent fit. The final implant chosen was a Tritanium cluster hole shell 50D. A single 60 mm screw was placed in the superior and posterior quadrant for extra stability. The liner chosen was a Trident X3 0 degree polyethylene insert 32D. This was impacted into the acetabulum without difficulty. Stability of the liner was checked and rechecked and noted to be stable. It was noted that the cup was extremely stable with appropriate anteversion and abduction angles. Attention was next turned to the preparation of the femoral canal. A canal finder was placed. The canal was sequentially broached up to a size 3. The size 3 broach had excellent fit. A 132-degree neck trial was chosen. +32 +0 head trial was chosen and the lesser troch to the center of femoral head measured 55 mm. Therefore, a -4 head was chosen. Lesser troch to center of femoral measured 51 mm. The hip was reduced and taken through a range of motion. The hip was stable in all positions. There was good soft tissue tension and appropriate leg length. The hip was dislocated and the trials were removed. The final implant chosen was an Accolade TMZF size 3 with a 132-degree neck. This was impacted into the femoral canal without difficulty. The stem was stable. There was appropriate anteversion. Final head chosen was a 32 - 4 Biolox delta V40 femoral head. This was impacted onto the femoral neck. The lesser troch to the center of the femoral head final measurement was 51 mm. The hip was reduced and taken through range of motion. The hip was stable in all positions. There was appropriate soft tissue tension and leg lengths. The hip was copiously irrigated with sterile saline. Previously tagged capsule and tendons were reapproximated to the posterolateral femur through 2 trochanteric drill holes. The lateral fascial layer was closed using interrupted #1 Vicryl. The rest of the incision was closed in a layered fashion using 0 and 2- 0 Vicryl. Skin was closed using running 3-0 Monocryl and Dermabond. Sterile Adaptic, 4x4s, and paper tape were used to cover the incision. The patient's anesthesia was reversed without difficulty. She was taken to the PACU in stable condition. Intended weightbearing will be weightbearing as tolerated with posterior hip precautions. Intended DVT prophylaxis will be Coumadin with a Lovenox bridge. [id number]/[facility] #: [id number] FRANCES
[2017-11-08] MEDS: oxyCODONE/Acetamin 5/325 MG* TAB PO PRN ×2 (00:39→08:11)
[2017-11-08] MEDS: Levothyroxine TAB* 50 MCG TAB PO SCH (05:32)
[2017-11-08] MEDS: oxyCODONE TAB* 5 MG TAB PO PRN ×2 (05:37→11:15)
[2017-11-08 07:06] LABS: Hematocrit 33 % (35-47); Mean Platelet Volume 9.4 um3 (7.4-10.4); Platelet Count 166 10^3/ul (150-450)
[2017-11-08 07:10] LABS: INR 1.37 (0.77-1.02)
--- NOTE | 2017-11-08 07:58 | PN ---
Progress Note - Progress Note Date of Service: 11/08/17 SOAP: Subjective: pt OOB to chair with continued complaints of moderate right hip pain Objective: Vital Signs Temp Pulse Resp BP Pulse Ox 99.1 F 63 18 135/62 97 11/08/17 03:36 11/08/17 03:36 11/08/17 05:37 11/08/17 03:36 11/08/17 03:36 Laboratory Last Values Hgb 11.0 g/dl (12.0-16.0) L 11/08/17 06:39 Hct 33 % (35-47) L 11/08/17 06:39 Plt Count 166 10^3/ul (150-450) 11/08/17 06:39 MPV 9.4 um3 (7.4-10.4) 11/08/17 06:39 INR (Anticoag Therapy) 1.37 (0.77-1.02) H 11/08/17 06:39 Sodium 139 mmol/L (135-145) 11/07/17 05:51 Potassium 4.3 mmol/L (3.5-5.0) 11/07/17 05:51 Chloride 106 mmol/L (101-111) 11/07/17 05:51 Carbon Dioxide 29 mmol/L (22-32) 11/07/17 05:51 Anion Gap 4 mmol/L (2-11) 11/07/17 05:51 BUN 11 mg/dL (6-24) 11/07/17 05:51 Creatinine 0.57 mg/dL (0.51-0.95) 11/07/17 05:51 Est GFR ( Amer) 128.4 (>60) 11/07/17 05:51 Est GFR (Non-Af Amer) 106.1 (>60) 11/07/17 05:51 BUN/Creatinine Ratio 19.3 (8-20) 11/07/17 05:51 Glucose 150 mg/dL (70-100) H 11/07/17 05:51 POC Glucose (mg/dL) 120 mg/dL (70-100) H 11/07/17 16:33 Calcium 8.8 mg/dL (8.6-10.3) 11/07/17 05:51 incision: c/d; dressing changed PE:NVI Assessment: s/pRight JIM; POD#2 Plan: 1) continue PT/OT- WBAT 2) continue Lovenox/Coumadin/SCD's for DVT prophylaxis 3) continue current pain regimen 4) D/C home tomorrow
[2017-11-08] MEDS: Mometasone/Formoter 200/5 MDI INH SCH (08:06)
[2017-11-08] MEDS: Venlafaxine EXT RELEASE CAP* 75 MG PO SCH (08:11)
[2017-11-08] MEDS: Magnesium Hydroxide LIQ* 30 ML UDC PO SCH (08:11)
[2017-11-08] MEDS: Vitamin THERAPEUTIC TAB PO SCH (08:11)
[2017-11-08] MEDS: Atenolol TAB* 25 MG PO SCH (08:11)
[2017-11-08] MEDS: Docusate CAP* 100 MG PO SCH (08:11)
[2017-11-08] MEDS: Cyclobenzaprine TAB* 10 MG PO PRN ×2 (08:12→11:17)
[2017-11-08] MEDS: Insulin LISPRO* 1 UNITS UNIT SUBCUT SCH (08:14)
[2017-11-08] MEDS: Enoxaparin(*) 30 MG/0.3 ML SYR SUBCUT SCH (11:15)
[2017-11-08 12:23] VITALS: BP 101/58
[2017-11-08] MEDS ORDERED: Warfarin TAB(*) 4 MG PO ONE (17:00)
--- NOTE | 2017-11-08 22:33 | DS ---
DISCHARGE SUMMARY: DATE OF ADMISSION: 11/06/17 DATE OF DISCHARGE: 11/08/17 ATTENDING PROVIDER: Dr. Zacarias * (DICTATED BY RUIZ ERVIN) CHIEF COMPLAINT: Right hip. HISTORY OF PRESENT ILLNESS: Ms. Calderon is a 67-year-old female with end-stage osteoarthritis of the right hip. She has failed conservative management and elected to proceed with a right total hip arthroplasty with Dr. Zacarias. HOSPITAL COURSE: Ms. Calderon was admitted electively to the hospital on and underwent a right total hip arthroplasty. She tolerated the procedure well without complications. Postoperatively, she was placed on Lovenox and Coumadin for DVT prophylaxis. Her H and H on postop day #1 was 10 and 32 and postop day #2 11 and 33. Her INR went from 0.9 to 1.37 on postoperative day # 2. She remained afebrile. She was ambulating well with physical therapy using a walker and she was discharged home on 11/08/17. DISCHARGE MEDICATIONS: 1. Atenolol 25 mg daily. 2. Lipitor 80 mg daily. 3. Flexeril 10 mg 2 to 3 times daily as needed for muscle spasms. 4. Percocet 5/325 one to two tabs every 4 to 6 hours as needed for pain. 5. Coumadin 2 mg. 6. Colace 100 mg 2 to 3 times a day as needed for constipation. 7. Humalog. 8. Synthroid 50 mcg daily. 9. Cozaar 50 mg daily. 10. Dulera. 11. Singulair 10 mg daily. 12. Daily multivitamin. PHYSICAL EXAM UPON DISCHARGE: She was afebrile. Her vital signs were stable. Her wound was clean, dry and healing well. She was ambulating well with aid of a walker. She was distally neurovascularly intact. DISCHARGE INSTRUCTIONS: She was discharged home. She was given a prescription for Percocet 5/325 mg take 1 to 2 tabs every 4 to 6 hours as needed for pain. She was given Coumadin 2 mg tabs for DVT prophylaxis. Her INR at that time of discharge was 1.37. She was asked to take 8 mg tonight, 6 mg Sunday night, 4 mg Sunday and Sunday night, her INR will be rechecked on Sunday with VNS. She was given Colace 100 mg to take 2 to 3 times a day as needed for constipation. She was also given Flexeril 10 mg to take 2 to 3 times a day as needed for muscle spasms. She can start showering on Sunday, let the soap and water run over the incision. Do not submerge the incision in water. She will follow up with Dr. Zacarias in 2 weeks. We have asked her to call sooner with any questions or concerns. We did review the posterior hip precautions prior to discharge. RUIZ ERVIN [id number]/[facility] #: [id number] FRANCES
[2017-11-09] MEDS ORDERED: Scopolamine PATCH Remove* 1 NOTE MISC PATCH OFF ONE (06:00)
== END 2017-11-08 12:00 | disposition home health service (06) | DRG 470 ==
LOC: AA 12:37 → SSU 20:34
PROVIDERS: ADMIT Orthopaedic Surgery Adult Reconstructive Orthopaedic Surgery; ATTEND Orthopaedic Surgery Adult Reconstructive Orthopaedic Surgery
PROC: 0SR904A Replacement of Right Hip Joint with Ceramic on Polyethylene Synthetic Substitute, Uncemented, Open Approach (ICD-10-PCS; principal; 2017-11-06 15:00)
DX: M16.11 Unilateral primary osteoarthritis, right hip (principal); I10 Essential (primary) hypertension; J45.909 Unspecified asthma, uncomplicated; E11.9 Type 2 diabetes mellitus without complications; K21.9 Gastro-esophageal reflux disease without esophagitis; E03.9 Hypothyroidism, unspecified; E78.5 Hyperlipidemia, unspecified; E66.9 Obesity, unspecified; G47.33 Obstructive sleep apnea (adult) (pediatric); F41.9 Anxiety disorder, unspecified; M85.88 Other specified disorders of bone density and structure, other site; F12.90 Cannabis use, unspecified, uncomplicated; R49.0 Dysphonia; K57.30 Diverticulosis of large intestine without perforation or abscess without bleeding; L40.9 Psoriasis, unspecified; F32.9 Major depressive disorder, single episode, unspecified; Z88.0 Allergy status to penicillin; Z83.3 Family history of diabetes mellitus; Z82.49 Family history of ischemic heart disease and other diseases of the circulatory system; Z83.2 Family history of diseases of the blood and blood-forming organs and certain disorders involving the immune mechanism; Z88.8 Allergy status to other drugs, medicaments and biological substances; Z87.891 Personal history of nicotine dependence; Z72.89 Other problems related to lifestyle; Z79.01 Long term (current) use of anticoagulants; Z79.4 Long term (current) use of insulin; Z79.51 Long term (current) use of inhaled steroids; Z91.19 Patient's noncompliance with other medical treatment and regimen; Z68.33 Body mass index [BMI] 33.0-33.9, adult
CPT/HCPCS: 36415; 80048; 85014; 85018; 85049; 85610; A9270-GY; C1713; C1776; J1650; J2250; J2270; J2704; J2795; J3010; J3370; J8540

== ENCOUNTER 2018-07-11 10:42 | Inpatient (IN) | payer OTHER ==
--- NOTE | 2018-06-28 19:16 | HP ---
HISTORY AND PHYSICAL: DATE OF ADMISSION/SURGERY: 07/11/18 DATE OF OFFICE VISIT: 06/28/18 SURGEON: Anastacia Zacarias MD * (DICTATED BY RUIZ ERVIN) PROCEDURE: Right total knee arthroplasty. CHIEF COMPLAINT: Right knee pain. HISTORY OF PRESENT ILLNESS: Ms. Calderon is a 68-year-old female with continued complaints of right knee pain. She has failed conservative treatment and elected to proceed with a right total knee arthroplasty. PAST MEDICAL HISTORY: Hypertension, asthma, sleep apnea, diabetes, GERD, and hypothyroidism. PAST SURGICAL HISTORY: Bilateral knee arthroscopies, tonsillectomy, right total hip arthroplasty, and surgery for an anal fissure. CURRENT MEDICATIONS: 1. Folic acid. 2. Vitamin B12. 3. Sulfasalazine 500 mg 2 tabs in the morning, 2 tabs in the evening. 4. Atenolol 25 mg daily. 5. Cozaar 50 mg daily. 6. Potassium chloride 10 mEq a day. 7. Effexor 150 mg daily. 8. Metformin 500 mg once a day. 9. Singulair 10 mg daily. 10. Levothyroxine 50 mcg a day. 11. Benadryl Allergy. 12. Advair Diskus. 13. Oxycodone 10 mg every 8 hours as needed. 14. Atorvastatin 80 mg daily. 15. Ventolin HFA inhaler. ALLERGIES: To PENICILLIN. FAMILY HISTORY: Coronary artery disease, stroke, diabetes, and rheumatoid arthritis. SOCIAL HISTORY: She is a 68-year-old female. She lives with her . She does not smoke or use alcohol. Uses occasional marijuana. REVIEW OF SYSTEMS: A complete 14-point review of systems was reviewed with the patient. It was positive for GERD, diabetes, hypothyroidism and asthma as well as some occasional palpitations. She denies history of DVT, PE, hepatitis, HIV , or anesthesia problems. PHYSICAL EXAMINATION GENERAL: She is well developed, well nourished, in no acute distress. VITAL SIGNS: She stands 5 feet 3 inches tall, weighs 190 pounds. Her blood pressure is 134/64 and heart rate 64. HEENT: Normocephalic, atraumatic. NECK: Supple. No palpable lymph nodes. PULMONARY: The lungs are clear to auscultation bilaterally. CARDIO: Regular rate and rhythm. Strong S1, S2. ABDOMEN: Soft, nontender, nondistended. NEUROLOGICAL: She is alert and oriented x3. MUSCULOSKELETAL: Right lower extremity: The skin is intact. There are no open wounds or abrasions. There is a moderate effusion of the right knee. Range of motion is 10 to 120 degrees of flexion with severe patellofemoral crepitus. Her calf is soft and nontender. She has a 2+ dorsalis pedis pulse and intact sensation. Her lower extremity muscle group strengths are intact at 5/5. ASSESSMENT AND PLAN: Ms. Calderon is a 68-year-old female with end-stage osteoarthritis of the right knee. She has failed conservative treatment and elected to proceed with a right total knee arthroplasty. The surgery is scheduled for 07/11/[address] Zacarias discussed the risks and benefits of the surgery at today's visit and all of her questions were answered. She will follow up with Dr. Zacarias 2 weeks after the surgery. RUIZ ERVIN [id number]/[facility] #: [id number] FRANCES
[~2018-07-11 10:42] MED LIST changes: -Buffered Lidocaine 0.9% SYRIN* 5 ML/SYR SYRINGE INTRADERM ONE; +Buffered Lidocaine 1% SYRIN* 1 ML/SYRINGE INTRADERM ONE; -Dexamethasone TAB* 4 MG PO ONE; -DiMENhydriNATE IV* 50 MG/ML VIAL IV PUSH PRN; -Gabapentin CAP(*) 300 MG PO ONE; +Lactated Ringers 1000 ML Bag* 1,000 ML IV SCH; +Metoclopramide IV* 5 MG/ML 2 ML VIAL IV SLOW PU ONE; -Morphine INJ* 2 MG/ML 1 ML CARPUJECT IV PRN; -Naloxone* 0.4 MG/ML 1 ML VIAL IV PRN; -Ondansetron INJ* 2 MG/ML VIAL ONE; -PROCHLORPERAZINE INJ 5 MG/ML 2 ML VIAL IV PRN; -Scopolamine 1.5 mg* PATCH TRANSDERM ONE; +Tranexamic Acid 1,000 MG in NS 0.9% 50 ML* (outpatient use) IV SCH
--- OUTSIDE RECORDS SUMMARY | 2018-07-11 10:46 | XMS REPORT | Continuity of Care Document ---
:1950 External Reference #:[id number] Author Name Taylor Landin Care Team Providers Name Role Phone Jesus Alberto Robertson MD Primary Care Physician Unavailable Payers Type Date Identification Numbers Payment Provider Subscriber Policy Number: [id number] [employer] Number: [id number] [address] PayID: [id number] [place] [address] Advance Directives Description No Information Available Problems Date Description Provider Status Onset: 03/19/2013 Obstructive sleep apnea syndrome Linsey Canas M.D. Active Onset: 03/19/2013 Essential hypertension Linsey Canas M.D. Active Onset: 03/19/2013 Obesity Linsey Canas M.D. Active Onset: 03/19/2013 Palpitations Linsey Canas M.D. 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 Active pelvic region and thigh Onset: 09/17/2017 Localized, primary osteoarthritis Anastacia Zacarias M.D. Active Onset: 06/17/2018 Iliotibial band friction syndrome Anastacia Rell, M.D. Active Family History Date Family Member(s) Problem(s) Comments General Diabetes General Heart Disease General Hypertension General Stroke General fctor 8 Father Coronary Artery Disease (CAD) Mother Atrial Fibrillation Mother Stroke Mother Blood Disorder factor VIII deficiency Mother Her mother had arthritis and joint deformities Mother polymyalgia rheumatica Paternal Grandfather Coronary Artery Disease (CAD) Social History Type Date Description Comments Sex Unknown Marital Status Lives With Spouse Occupation Retired ETOH Use Denies alcohol use Tobacco Use Start: Unknown End: Patient is a former smoker Unknown Recreational Drug Use Denies Drug Use Smoking Status Reviewed: 06/17/18 Patient is a former smoker Exercise Type/Frequency Exercises sporadically Allergies, Adverse Reactions, Alerts Date Description Reaction Status Severity Comments 10/08/2012 Penicillin Active Medications Medication Date Status Form Strength Qnty SIG Indications Ordering Provider Folic Acid 06/06 Active Tablets 1mg 90tab take one s capsule/ta Star, blet daily M.D. by mouth [id number] 05/01 Active Chewtabs 1mg 90uni take one ts capsule/ta Star, blet daily M.D. sublingual ly Sulfasalazine 05/01 Active Tablets 500mg 500ta Take 2 bs tabs in Star, the M.D. morning and 2 tabs in the evening for a total of 4 daily tabs daily ongoing Clindamycin HCL 01/10 Active Capsules 300mg 4caps take 2 tablets 1 Yaseen, hour prior MD to dental work Nystatin 11/19 Active Powder [id number] 15gm apply to t/GM affected Rell, areas 3 M.D. times a day as needed. Cyclobenzaprine 11/08 Active Tablets 10mg 90tab take 1 tab Anastacia s by mouth Rell, 2-3 times M.D. a day as needed Atenolol 10/22 Active Tablets 25mg 90tab 1 by mouth Linsey s every day Ashley Canas Cozaar Active Tablets 50mg 30tab 1 po qd Unknown s Hydrochlorothiazi Active Tablets 25mg 30tab 1 po qd Unknown s Potassium Active Tablets ER 10Meq 90tab 1 po qd Unknown Chloride s Lipitor Active Tablets 80mg 30tab 1 po qhs s Effexor XR Active Caps ER 225mg 30cap 1 po qd 24HR s Metformin HCL ER Active Tablets ER 500mg 30tab 1 po qd 24HR s Singulair Active Tablets 10mg 90tab 1 po qd s Levothyroxine Active Tablets 50mcg 1 by mouth Unknown every day Benadryl Allergy Active Capsules 25mg Advair Diskus Active Aerosol 100-50mcg inhale one /Dose puff by mouth twice a day Oxycodone HCL Active Tablets 10mg 1 tab 8h as needed Tramadol HCL 02/01 Hx Tablets 50mg 60tab 1 tablet M25.561 s by mouth Rell, - every 6 M.D. 05/01 hours needed pain Cephalexin 12/17 Hx Tablets 500mg 28tab 1 by mouth Z47.1 s four times Rell, - a day for M.D. 03/03 Warfarin Sodium 11/08 Hx Tablets 2mg 90tab take 1-3 s tabs by Rell, - mouth at M.D. 12/16 5p nightly Percocet 11/08 Hx Tablets 5-325mg 60tab 1-2 by s mouth Rell, - every 8 M.D. 03/03 hours needed pain. ok to dispence generic Colace 11/08 Hx Capsules 100mg 90cap 1 tab by s mouth 2-3 Rell, - times a M.D. 03/03 day needed Ambien Hx Tablets 10mg 30tab 1 po qhs s prn sleep - insomnia 08/09 Aspirin Hx Tablets 81mg 1 po qd - 08/09 Vitamin D Hx 50,000mg once a week - 08/09 Ventolin HFA Hx Aerosol 108(90Bas 1unit 2 puffs e) s bid - mcg/Act 08/09 Nasonex Hx Suspension 50mcg/Act 1unit 2 sprays Unknown /0000 s to each - nostril 08/09 twice daily Advair Diskus Hx Unknown /0000 - 08/09 Nitrostat Hx Tablets Sub 0.4mg 25tab one sl Unknown /0000 s q5min up - to 3 doses 08/09 /2017 Albuterol Sulfate Hx Unknown 0000 - 08/09 Medications Administered in Office Medication Date Status Form Strength Qnty SIG Indications Ordering Provider Depomedrol 40MG 09/17/ Administered Injection Anastacia 2017 Ashley Zacarias Triamcinolone 11/09/ Administered Injection Zaneb (Kenalog) 2016 MD Jose Technetium TC 10/21/ Administered Injection Linsey 99M Tetrofosmin, 2012 Missael, Per Unit Dose Up M.D. To 40 Millicuries Immunizations Description No Information Available Vital Signs Date Vital Result Comment 06/17/2018 1:43pm Height 63 inches 5'3" Weight 188.00 lb BP Systolic 140 mmHg BP Diastolic 88 mmHg Body Temperature 98.8 F BMI (Body Mass Index) 33.3 kg/m2 06/06/2018 8:33am Height 62 inches 5'2" Weight 190.50 lb Heart Rate 70 /min BP Systolic Sitting 120 mmHg BP Diastolic Sitting 78 mmHg Pain Level 5 O2 % BldC Oximetry 94 % BMI (Body Mass Index) 34.8 kg/m2 05/01/2018 7:59am Height 62 inches 5'2" Weight 190.00 lb Heart Rate 172 /min BP Systolic Sitting 124 mmHg BP Diastolic Sitting 82 mmHg Respiratory Rate 14 /min Pain Level 5 BMI (Body Mass Index) 34.7 kg/m2 03/27/2018 2:01pm Height 62 inches 5'2" Weight 190.50 lb Heart Rate 84 /min BP Systolic Sitting 140 mmHg BP Diastolic Sitting 82 mmHg Respiratory Rate 14 /min Pain Level 3 BMI (Body Mass Index) 34.8 kg/m2 03/04/2018 2:55pm Height 62 inches 5'2" Weight 180.00 lb Heart Rate 84 /min BP Systolic 128 mmHg BP Diastolic 88 mmHg Pain Level 2 BMI (Body Mass Index) 32.9 kg/m2 02/01/2018 11:03am Heart Rate 68 /min BP Systolic Sitting 148 mmHg BP Diastolic Sitting 88 mmHg Respiratory Rate 16 /min Pain Level 8 12/31/2017 8:17am Height 62 inches 5'2" Heart Rate 76 /min BP Systolic 122 mmHg BP Diastolic 76 mmHg Respiratory Rate 16 /min Body Temperature 98.2 F Pain Level 5 12/17/2017 8:20am Height 62 inches 5'2" Weight 184.00 lb BP Systolic 120 mmHg BP Diastolic 76 mmHg Body Temperature 98.2 F Pain Level 4 BMI (Body Mass Index) 33.7 kg/m2 11/19/2017 11:10am Height 62 inches 5'2" Heart Rate 70 /min BP Systolic 122 mmHg BP Diastolic 80 mmHg Respiratory Rate 16 /min Body Temperature 99.0 F Pain Level 4 10/29/2017 8:28am Height 62 inches 5'2" Weight 180.00 lb BP Systolic Sitting 116 mmHg BP Diastolic Sitting 70 mmHg Respiratory Rate 16 /min Body Temperature 97.7 F BMI (Body Mass Index) 32.9 kg/m2 09/17/2017 3:14pm Height 62 inches 5'2" Weight 180.00 lb Body Temperature 97.6 F BMI (Body Mass Index) 32.9 kg/m2 08/10/2017 10:09am Height 62 inches 5'2" Weight 185.00 lb Heart Rate 68 /min BP Systolic 120 mmHg BP Diastolic 84 mmHg BMI (Body Mass Index) 33.8 kg/m2 11/09/2016 3:03pm Height 62 inches 5'2" Weight 194.00 lb Heart Rate 70 /min BP Systolic 128 mmHg BP Diastolic 78 mmHg Body Temperature 96.7 F Pain Level 10 BMI (Body Mass Index) 35.5 kg/m2 03/19/2013 9:04am Height 63.5 inches 5'3.50" Weight 222.00 lb Heart Rate 60 /min BP Systolic 110 mmHg Ra large cuff BP Diastolic 82 mmHg Ra large cuff BP Systolic Standing 110 mmHg Ra BP Diastolic Standing 80 mmHg Ra BMI (Body Mass Index) 38.7 kg/m2 Results Test Date Facility Test Result H/L Range Note Laboratory test 06/04/2018 [facility] C Reactive 2.79 mg/L N < 8.01 [address] [place] [address] [phone] Erythrocyte Sed Rate 38 mm/Hr N 0-40 2 CBC Auto Diff 06/04/2018 [facility] White Blood 6.1 10^3/uL N 3.5-10.[address] [place] [address] [phone] Red Blood Count 4.03 10^6/uL N 4.00-5.40 Hemoglobin 11.8 g/dL Low 12.0-16.0 Hematocrit 36 % N 35-47 Mean Corpuscular Volume 88 fL N 80-97 Mean Corpuscular Hemoglobin 29 pg N 27-31 Mean Corpuscular HGB Conc 33 g/dL N 31-36 Red Cell Distribution Width 15 % N 10.5-15 Platelet Count 248 10^3/uL N 150-450 Mean Platelet Volume 9.5 fL N 7.4-10.4 Abs Neutrophils 3.9 10^3/uL N 1.5-7.7 Abs Lymphocytes 1.5 10^3/uL N 1.0-4.8 Abs Monocytes 0.4 10^3/uL N 0-0.8 Abs Eosinophils 0.3 10^3/uL N 0-0.6 Abs Basophils 0 10^3/uL N 0-0.2 Abs Nucleated RBC 0 10^3/uL Granulocyte % 63.6 % Lymphocyte % 24.3 % Monocyte % 6.7 % Eosinophil % 4.9 % Basophil % 0.5 % Nucleated Red Blood Cells % 0 Comp Metabolic Panel 06/04/2018 [facility] Sodium 139 mmol/L N 135-[address] [place] [address] [phone] Potassium 4.3 mmol/L N 3.5-5.0 Chloride 105 mmol/L N 101-111 Co2 Carbon Dioxide 30 mmol/L N 22-32 Anion Gap 4 mmol/L N 2-11 Glucose 89 mg/dL N 70-100 Blood Urea Nitrogen 11 mg/dL N 6-24 Creatinine 0.59 mg/dL N 0.51-0.95 BUN/Creatinine Ratio 18.6 N 8-20 Calcium 9.5 mg/dL N 8.6-10.3 Total Protein 6.6 g/dL N 6.4-8.9 Albumin 4.1 g/dL N 3.2-5.2 Globulin 2.5 g/dL N 2-4 Albumin/Globulin Ratio 1.6 N 1-3 Total Bilirubin 0.30 mg/dL N 0.2-1.0 Alkaline Phosphatase 76 U/L N 34-104 Alt 9 U/L N 7-52 Ast 12 U/L Low 13-39 Egfr Non- 101.7 >60 Egfr 123.0 >60 3 Laboratory test 04/23/2018 [facility] Rheumatoid Factor < 10 IU/ mL N <15 4 finding [address] [place] [address] [phone] Nuclear AB (Amara) By Ifa Igg <1:80 (Negative) 5 Erythrocyte Sed Rate 38 mm/Hr N 0-40 6 C Reactive Protein 1.60 mg/L N <8.01 7 Magnesium 2.0 mg/dL N 1.9-2.7 8 Vitamin B12 And 04/23/2018 [facility] Vitamin B12 298 pg/mL N 180-914 9 Folate Serum [address] [place] [address] [phone] Folic Acid (Folate) 14.57 ng/mL >3.99 10 Laboratory test 04/23/2018 [facility] TSH (Thyroid 0.57 mcIU/mL N 0.34-5.60 11 finding 101 [facility] [place]) [place] [address] [phone] Hla B27 04/23/2018 [facility] Hla B27 Negative 12 [address] [place] [address] [phone] Hla B27 Interp See Comment 13 Anca AB Ser If 04/23/2018 [facility] C-Anca Negative Negative [address] [place] [address] [phone] P-Anca Negative Negative 14 Ssa/SSB Abs Igg 04/23/2018 [facility] SS-A/Ro Antibody <0.2 U 15 [address] [place] [address] [phone] SS-B/La Antibody 0.3 U 16 Urinalysis Profile 10/29/2017 [facility] Urine Color Yellow [address] [place] [address] [phone] Urine Appearance Clear Urine Specific Hazel 1.025 N 1.010-1.030 Urine pH 5.0 N 5-9 Urine Urobilinogen Negative Negative Urine Ketones Negative Negative Urine Protein Negative Negative Urine Leukocytes Negative Negative Urine Blood Negative Negative Urine Nitrite Negative Negative Urine Bilirubin Negative Negative Urine Glucose Negative Negative CBC Auto Diff 10/29/2017 [facility] White Blood 7.6 10^3/uL N 3.5-10.[address] [place] [address] [phone] Red Blood Count 4.37 10^6/uL N 4.00-5.40 Hemoglobin 12.6 g/dL N 12.0-16.0 Hematocrit 38 % N 35-47 Mean Corpuscular Volume 88 fL N 80-97 Mean Corpuscular Hemoglobin 29 pg N 27-31 Mean Corpuscular HGB Conc 33 g/dL N 31-36 Red Cell Distribution Width 14 % N 10.5-15 Platelet Count 216 10^3/uL N 150-450 Mean Platelet Volume 9.5 um3 N 7.4-10.4 Abs Neutrophils 4.9 10^3/uL N 1.5-7.7 Abs Lymphocytes 2.0 10^3/uL N 1.0-4.8 Abs Monocytes 0.5 10^3/uL N 0-0.8 Abs Eosinophils 0.2 10^3/uL N 0-0.6 Abs Basophils 0 10^3/uL N 0-0.2 Abs Nucleated RBC 0 10^3/uL Granulocyte % 63.7 % N 38-83 Lymphocyte % 26.6 % N 25-47 Monocyte % 6.6 % N 0-7 Eosinophil % 2.6 % N 0-6 Basophil % 0.5 % N 0-2 Nucleated Red Blood Cells % 0.1 Inr/Protime 10/29/2017 [facility] Inr 0.79 N 0.77-1.[address] [place] [address] [phone] Laboratory test 10/29/2017 [facility] Partial 27.2 seconds N 26.0-36.[address] [place] [address] PTT [phone] Type & Screen 10/29/2017 [facility] Patient A Positive [address] [place] [address] [phone] Antibody Screen NEGATIVE Urine Culture And 10/29/2017 [facility] Urine Culture SEE RESULT [address] [place] [address] [phone] Laboratory test 10/23/2017 [facility] Hemoglobin A1c 6.1 % High 4.0- [address] (Glyco HGB) 5.6 [place] [address] [phone] Basic Metabolic 10/23/2017 [facility] Sodium 142 mmol/L N 139 - Panel [address] [place] [address] [phone] Potassium 4.3 mmol/L N 3.5-5.0 Chloride 107 mmol/L N 101-111 Co2 Carbon Dioxide 31 mmol/L N 22-32 Anion Gap 4 mmol/L N 2-11 Glucose 100 mg/dL N 70-100 Blood Urea Nitrogen 16 mg/dL N 6-24 Creatinine 0.60 mg/dL N 0.51-0.95 BUN/Creatinine Ratio 26.7 High 8-20 Calcium 9.6 mg/dL N 8.6-10.3 Egfr Non- 100.0 >60 Egfr 128.6 >60 19 Laboratory test 10/23/2017 [facility] Vitamin D 29.7 ng/mL N 20-[address] Total 25(Oh) [place], [place] [address] [phone] Hepatitis C Antibody Nonreactive Nonreactive Laboratory 11/01/2012 [facility] Activated 25.9 22.18-37.18 test finding [address] [place] [address] Thrombo Time [phone] Inr/Protime 11/01/2012 [facility] Inr 0.82 Low 0.87-0.[address] [place], [place] [address] [phone] Basic 11/01/2012 [facility] Sodium 142 mmol/L 133-[address] [place] [address] [phone] Potassium 3.6 mmol/L 3.5-5.0 Chloride 104 mmol/L 101-111 Co2 Carbon Dioxide 29.0 mmol/L 22-32 Anion Gap 9.0 mmol/L 2-11 Glucose 94 mg/dL 70-100 Blood Urea Nitrogen 19 mg/dL 6-24 Creatinine 0.80 mg/dL 0.50-1.40 BUN/Creatinine Ratio 23.8 High 8-20 Calcium 10.0 mg/dL High 8.1-9.9 Egfr Non- 72.9 >60 Egfr 93.8 >60 20 CBC No Diff 11/01/2012 [facility] White Blood 9.2 10^3/uL 4.8 -10.[address] [place] [address] [phone] Red Blood Count 4.41 10^6/uL 4.0-5.4 Hemoglobin 12.8 g/dL 12.0-16.0 Hematocrit 39 % 35-47 Mean Corpuscular Volume 89 fL 80-97 Mean Corpuscular Hemoglobin 29 pg 27-31 Mean Corpuscular HGB Conc 33 g/dL 31-36 Red Cell Distribution Width 14 % 10.5-15 Platelet Count 235 10^3/uL 150-450 Mean Platelet Volume 10 um3 7.4-10.4 1 Please check labs 2 days before follow up 2 Please check labs 2 days before follow up 3 Because ethnic data is not always [...] 15-29 5 Kidney failure <15 (or dialysis) 4 Please check labs this week 5 <1:80 (Negative) REFERENCE VALUE <1:80 (Negative) Test Performed by: [address] [address] 6 Please check labs this week 7 Please check labs this week 8 Please check labs this week 9 Normal Range 180 to 914 Indeterminate Range 145 to 180 Deficient Range <145 10 Please check labs this week 11 Please check labs this week 12 REFERENCE VALUE Not Applicable 13 RESULT: HLA-B27 antigen was not detected. ADDITIONAL INFORMATION Method: Flow Cytometry Performing Laboratory CLIA# [id number] Test Performed by: [facility] [place] [id number] 14 Negative for cANCA and pANCA patterns by immunofluorescence. ADDITIONAL INFORMATION This test was developed and its performance characteristics determined by [facility] in a manner consistent with CLIA requirements. This test has not been cleared or approved by the U.S. Food and Drug Administration. Test Performed by: [facility] [place] [address] 15 REFERENCE VALUE <1.0 (Negative) 16 REFERENCE VALUE <1.0 (Negative) Test Performed by: [facility] [employer] [place] [address] 17 SEE RESULT BELOW Name: MARILIA NORIEGA : [address]: Anastacia Zacarias MD Acct: [id number] Unit: [id number] AGE: 67 Location: PAT Re10/29/17 SEX: F Status: REG REF SPEC: [id number] KARINA: 10/29/17-[address] [facility] [address]: Anastacia Zacarias MD REQ: [id number] RECD: 10/29/17 STATUS: SAMIR OLIVERA DR: Jesus Alberto Robertson MD _ SOURCE: URINE SPDESC: ORDERED: Urine Culture QUERIES: Urine Source: Clean Catch Procedure Result Reported Site Urine Culture Final 10/30/17- 1217 ML No growth of clinically significant organisms * ML - Main Lab . END OF REPORT DEPARTMENT OF PATHOLOGY, [address] [place] [address] Jaciel Terrazas M.D. Director [facility] # [id number] 18 Therapeutic target for the treatment of diabetes mellitus patients is <7% HBA1C, and in selective patients <6.0%. Please refer to [place] [employer] diabetic care guidelines for further information. 19 Because ethnic data is not always readily [...] 15-29 5 Kidney failure <15 (or dialysis) 20 Because ethnic data is not always readily [...] Kidney failure <15 (or dialysis) Procedures Date Code Description Status 06/17/2018 06865 Inject/Drain Joint/Bursa Major W/O US Completed 01/08/2018 68671 Removal Devitalization Tissue Wound Less Than Equal 20 Completed Square CM 01/01/2018 13853 Removal Devitalization Tissue Wound Less Than Equal 20 Completed Square CM 12/25/2017 81628 Removal Devitalization Tissue Wound Less Than Equal 20 Completed Square CM 11/06/2017 71413 THR Total Hip Replacement Completed 11/06/2017 55590 THR Total Hip Replacement Completed 11/06/2017 08891 THR Total Hip Replacement Completed 09/17/2017 07067 Inject/Drain Joint/Bursa Major W/O US Completed 11/09/2016 13810 Inject/Drain Joint/Bursa Major W/O US Completed 07/10/2013 17239 Polysomnography Sleep Staging 4+ Parameters Completed 03/19/2013 05997 EKG Tracing & Interpretation Completed 11/15/2012 47209 ECHO Transthoracic, Real-Time 2D With Doppler And Color Completed Flow 11/05/2012 31592 Left Heart Cath. 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 M.D. side Z96.641 Presence of right artificial hip joint M25.551 Pain in right hip Office Visit 02/01/2018 11:15a Orthopedic Services Anastacia Rell, M25.561 Pain in right Of C.M.A. M.D. knee M17.11 Unilateral primary osteoarthritis, right knee M25.551 Pain in right hip Z96.641 Presence of right artificial hip joint M54.31 Sciatica, right side Office Visit 01/15/2018 10:15a Wound Care Jesus Alberto Marcus T81.31xD Disruption of Center AT [facility] Ashley Alvarez external operation (surgical) wound, NEC, subs E11.9 Type 2 diabetes mellitus without complications I10 Essential (primary) hypertension Office Visit 12/25/2017 9:30a Wound Care Jesus Alberto Marcus T81.31xA Disruption of Center AT [facility] Ashley Alvarez external operation (surgical) wound, NEC, init E11.622 Type 2 diabetes mellitus with other skin ulcer I10 Essential (primary) hypertension E78.5 Hyperlipidemia, unspecified E03.9 Hypothyroidism, unspecified Office Visit 11/07/2017 9:55a [facility] Mic Z47.1 Aftercare Assty maldonado PA following joint Hospitalists replacement surgery Z96.641 Presence of right artificial hip joint M16.11 Unilateral primary osteoarthritis, right hip M25.551 Pain in right hip Office Visit 11/06/2017 [facility] Arden Ingram Z47.1 Aftercare 2:53p Assty maldonado II, M.D. following joint Hospitalists replacement surgery Z96.641 Presence of right artificial hip joint M16.11 Unilateral primary osteoarthritis, right hip E11.9 Type 2 diabetes mellitus without complications J45.909 Unspecified asthma, uncomplicated I10 Essential (primary) hypertension E78.5 Hyperlipidemia, unspecified Office Visit 09/17/2017 Orthopedic Anastacia M16.11 Unilateral primary 3:00p Services Of Ashley Zacarias osteoarthritis, right C.M.A. hip M17.11 Unilateral primary osteoarthritis, right knee W19.xxxA Unspecified fall, initial encounter M25.551 Pain in right hip M25.561 Pain in right knee M25.461 Effusion, right knee Office Visit 08/10/2017 9:30a Orthopedic Services Anastacia Zacarias, M25.551 Pain in right Of C.M.A. M.D. 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 780.59 Sleep Disturbances Center Ashley Martinez Other 780.79 Malaise And Fatigue Other 786.09 Dyspnea & Respiratory Abnormalities Other Office Visit 03/19/2013 8:45a [place] [facility] Linsey Canas, 327.23 Obstructive Sleep Of [facility] [address] Kaela.Parker Apnea Adult & Pediatric 401.9 Hypertension Unspec 278.00 Obesity Unspec 785.1 Palpitations Office Visit 11/13/2012 [place] Linsey Canas, 427.0 PSVT Paroxysmal 2:45p Cardiology Ashley Supraventricular [facility] [address] Tachycardia 785.1 Palpitations 401.9 Hypertension Unspec Office Visit 11/01/2012 1:45p [place] [facility] Linsey Canas, 786.50 Pain Chest Of [facility] [address] AT [facility] Kaela.Parker Unspec 427.0 PSVT Paroxysmal Supraventricular Tachycardia 785.1 Palpitations 401.9 Hypertension Unspec Office Visit 10/08/2012 9:45a [place] [facility] Linsey Canas, 786.50 Pain Chest Of [facility] [address] Kaela.Parker Unspec 786.09 Dyspnea & Respiratory Abnormalities Other 272.0 Hypercholesterolemia Pure 278.00 Obesity Unspec Plan of Treatment Future Appointment(s):07/08/2018 1:15 pm - Anastacia Zacarias M.D. at [facility].A09/04/2018 9:20 am - Yohan Graves M.D. at [facility] [address]11/08/2018 10:15 am - Anastacia Zacarias M.D. at [facility].A06/17/2018 - Anastacia Zacarias M.D.M25.561 Pain in right kneeNew Xrays: Knee 3 Views RT, Ordered: 06/17/18M25.461 Effusion, right kneeM17.11 Unilateral primary osteoarthritis, right kneeFollow up:Follow up: Call Dr. Zacarias's Director Strategy, Sara, to schedule surgery.M76.31 Iliotibial band syndrome, right legS83.422A Sprain of lateral collateral ligament of left knee, initial
--- OUTSIDE RECORDS SUMMARY | 2018-07-11 10:46 | XMS REPORT | Continuity of Care Document ---
:1950 External Reference #:[id number] Author Name RUIZ Holly Address [address], [place] [address] Care Team Providers Name Role Phone Jesus Alberto Robertson MD Primary Care Physician Unavailable Payers Date Identification Numbers Payment Provider Subscriber Policy Number: [id number] [employer] Number: [id number] [address] PayID: [id number] [place] [address] Advance Directives Description No Information Available Problems [...] Onset: 06/17/2018 Iliotibial band friction syndrome Anastacia Zacarias M.D. Active Family History Date Family Member(s) Observation Comments General Diabetes General Heart Disease General [...] Use Denies Drug Use Smoking Status Reviewed: 06/28/18 Patient is a former smoker Exercise Type/Frequency Exercises sporadically Allergies, Adverse Reactions, Alerts Date Description Reaction Status Severity Comments 10/08/2012 Penicillin Active Medications Medication Date Status Form Strength Qnty SIG Indications Ordering Provider Folic Acid 06/06 Active Tablets 1mg 90tab take one s capsule/ta Star, blet daily M.D. by mouth [id number] 05/01 Active Chewtabs 1mg 90uni take one ts capsule/ta Star, blet daily M.D. sublingual ly Sulfasalazine 05/01 Active Tablets 500mg 500ta Take 2 bs tabs in Star, the M.D. morning and 2 tabs in the evening for a total of 4 daily tabs daily ongoing Clindamycin HCL 01/10 Active Capsules 300mg 4caps take 2 tablets 1 Yaseen, hour prior MD to dental work Atenolol 10/22 Active Tablets 25mg 90tab 1 by mouth Linsey s every day Ashley Canas Cozaar Active Tablets 50mg 30tab 1 po qd /0000 s Potassium Active Tablets ER 10Meq 90tab 1 po qd Unknown Chloride ER / s Effexor XR Active Caps ER 225mg 30cap 1 po qd 24HR s Metformin HCL ER Active Tablets ER 500mg 30tab 1 po qd 24HR s Singulair Active Tablets 10mg 90tab 1 po qd / s Levothyroxine Active Tablets 50mcg 1 by mouth Unknown Sodium /0000 every day Benadryl Allergy Active Capsules 25mg Unknown / Advair Diskus Active Aerosol 100-50mcg inhale one Unknown /Dose puff by mouth twice a day Oxycodone HCL Active Tablets 10mg 1 tab 8h Unknown as needed Atorvastatin Active Tablets 80mg 1 by mouth Unknown every day Ventolin HFA Active Unknown Tramadol HCL 02/01 Hx Tablets 50mg 60tab 1 tablet M25.561 s by mouth Rell, - every 6 M.D. 05/01 hours needed pain Cephalexin 12/17 Hx Tablets 500mg 28tab 1 by mouth Z47.1 s four times Rell, - a day for M.D. 03/03 Nystatin 11/19 Hx Powder [id number] 15gm apply to t/GM affected Rell, - areas 3 M.D. 06/27 times day as needed. Warfarin Sodium 11/08 Hx Tablets 2mg 90tab take 1-3 s tabs by Rell, - mouth at M.D. 12/16 5pm nightly Percocet 11/08 Hx Tablets 5-325mg 60tab 1-2 by s mouth Rell, - every 8 M.D. 03/03 hours needed pain. ok to dispence generic Colace 11/08 Hx Capsules 100mg 90cap 1 tab by Anastacia s mouth 2-3 Rell, - times a M.D. 03/03 day needed Cyclobenzaprine 11/08 Hx Tablets 10mg 90tab take 1 tab s by mouth Rell, - 2-3 times M.D. 06/27 a day needed Hydrochlorothiazi Hx Tablets 25mg 30tab 1 po qd Unknown s - 06/27 Lipitor Hx Tablets 80mg 30tab 1 po qhs s - 06/27 Ambien Hx Tablets 10mg 30tab 1 po qhs Unknown / s prn sleep - insomnia 08/09 Aspirin Hx Tablets 81mg 1 po qd Unknown / - 08/09 Vitamin D Hx 50,000mg once a week - 08/09 Ventolin HFA Hx Aerosol 108(90Bas 1unit 2 puffs Unknown e) s bid - mcg/Act 08/09 Nasonex Hx Suspension 50mcg/Act 1unit 2 sprays s to each - nostril 08/09 daily Advair Diskus Hx - 08/09 Nitrostat Hx Tablets Sub 0.4mg 25tab one sl Unknown s q5min up - to 3 doses 08/09 pr Albuterol Sulfate Hx - 08/09 Medications Administered in Office Medication Date Status Form Strength Qnty SIG Indications Ordering Provider Depomedrol 40MG 06/17/ Administered Injection Anastacia 2018 Ashley Zacarias Depomedrol 40MG 09/17/ Administered Injection Anastacia 2017 Ashley Zacarias Triamcinolone 11/09/ Administered Injection Zaneb (Kenalog) 2016 MD Jose Technetium TC 10/21/ Administered Injection Linsey 99M Tetrofosmin, 2013 Missael, Boyd Unit Dose Up M.D. To 40 Millicuries Immunizations Description No Information Available Vital Signs Date Vital Result Comment 06/28/2018 9:34am Height 63 inches 5'3" Weight 190.00 lb Heart Rate 64 /min BP Systolic 132 mmHg BP Diastolic 64 mmHg BMI (Body Mass Index) 33.7 kg/m2 06/17/2018 1:43pm Height 63 inches 5'3" Weight [...] Date Facility Test Result H/L Range Note CBC Auto Diff 06/28/2018 [facility] White Blood 6.8 10^3/uL N 3.5-10.[address] [place] [address] [phone] Red Blood Count 4.29 10^6/uL N 4.00-5.40 Hemoglobin 12.3 g/dL N 12.0-16.0 Hematocrit 38 % N 35-47 Mean Corpuscular Volume 90 fL N 80-97 Mean Corpuscular Hemoglobin 29 pg N 27-31 Mean Corpuscular HGB Conc 32 g/dL N 31-36 Red Cell Distribution Width 14 % N 10.5-15 Platelet Count 249 10^3/uL N 150-450 Mean Platelet Volume 9.8 fL N 7.4-10.4 Abs Neutrophils 3.9 10^3/uL N 1.5-7.7 Abs Lymphocytes 2.1 10^3/uL N 1.0-4.8 Abs Monocytes 0.5 10^3/uL N 0-0.8 Abs Eosinophils 0.3 10^3/uL N 0-0.6 Abs Basophils 0 10^3/uL N 0-0.2 Abs Nucleated RBC 0 10^3/uL Granulocyte % 57.3 % Lymphocyte % 30.2 % Monocyte % 6.9 % Eosinophil % 5.1 % Basophil % 0.5 % Nucleated Red Blood Cells % 0 Comp Metabolic Panel 06/28/2018 [facility] Sodium 140 mmol/L N 135-[address] [place] [address] [phone] Potassium 4.1 mmol/L N 3.5-5.0 Chloride 106 mmol/L N 101-111 Co2 Carbon Dioxide 28 mmol/L N 22-32 Anion Gap 6 mmol/L N 2-11 Glucose 82 mg/dL N 70-100 Blood Urea Nitrogen 16 mg/dL N 6-24 Creatinine 0.69 mg/dL N 0.51-0.95 BUN/Creatinine Ratio 23.2 High 8-20 Calcium 9.6 mg/dL N 8.6-10.3 Total Protein 7.3 g/dL N 6.4-8.9 Albumin 4.6 g/dL N 3.2-5.2 Globulin 2.7 g/dL N 2-4 Albumin/Globulin Ratio 1.7 N 1-3 Total Bilirubin 0.30 mg/dL N 0.2-1.0 Alkaline Phosphatase 72 U/L N 34-104 Alt 14 U/L N 7-52 Ast 15 U/L N 13-39 Egfr Non- 84.9 >60 Egfr 102.7 >60 2 Urinalysis Profile 06/28/2018 [facility] Urine Color Lurdes [address] [place] [address] [phone] Urine Appearance Cloudy Urine Specific [place] 1.026 N 1.010-1.030 Urine pH 5.0 N 5-9 Urine Urobilinogen Negative Negative Urine Ketones Negative Negative Urine Protein Negative Negative Urine Leukocytes Negative Negative Urine Blood Negative Negative Urine Nitrite Negative Negative Urine Bilirubin Negative Negative Urine Glucose Negative Negative Inr/Protime 06/28/2018 [facility] Inr 0.82 N 0.77-1.[address] [place], [place] [address] [phone] Laboratory test 06/28/2018 [facility] Partial 24.5 seconds Low 26.0-36.[address] [place] [address] Time PTT [phone] Type & Screen 06/28/2018 [facility] Patient A Positive [address] [place] [address] [phone] Antibody Screen NEGATIVE Urine Culture And 06/28/2018 [facility] Urine Culture SEE RESULT [address] [place] [address] [phone] Comp Metabolic 06/04/2018 [facility] Sodium 139 mmol/L N 135- [address] [place] [address] [phone] Potassium 4.3 mmol/L N 3.5-5.0 Chloride 105 [...] Egfr Non- 101.7 >60 Egfr 123.0 >60 5 CBC Auto Diff 06/04/2018 [facility] White Blood 6.1 10^3/uL N 3.5-10.[address] [place] [address] [phone] Red Blood Count 4.03 10^6/uL N 4.00-5.40 [...] % Nucleated Red Blood Cells % 0 Laboratory test 06/04/2018 [facility] C Reactive 2.79 mg/L N < 8.01 [address] [place] [address] [phone] Erythrocyte Sed Rate 38 mm/Hr N 0-40 7 Ssa/SSB Abs Igg 04/23/2018 [facility] SS-A/Ro Antibody <0.2 U 8 [facility] [place] [address] [phone] SS-B/La Antibody 0.3 U 9 Anca AB Ser If 04/23/2018 [facility] C-Anca Negative Negative [address] [place] [address] [phone] P-Anca Negative Negative 10 Hla B27 04/23/2018 [facility] Hla B27 Negative [address] [place] [address] [phone] Hla B27 Interp See Comment 12 Laboratory test 04/23/2018 [facility] TSH (Thyroid 0.57 mcIU/mL N 0.34-5.60 [address] [place] [address] Stim Horm) [place] [address] [phone] Vitamin B12 And 04/23/2018 [facility] Vitamin B12 298 pg/mL N 180-914 14 Folate Serum [address] [place] [address] [phone] Folic Acid (Folate) 14.57 ng/mL >3.99 15 Laboratory test 04/23/2018 [facility] Rheumatoid < 10 IU/mL N <15 [address] [place] [address] [place] [address] [phone] Nuclear AB (Amara) By Ifa Igg <1:80 (Negative) 17 Erythrocyte Sed Rate 38 mm/Hr N 0-40 18 C Reactive Protein 1.60 mg/L N <8.01 19 Magnesium 2.0 mg/dL N 1.9-2.7 20 Urinalysis Profile 10/29/2017 [facility] Urine Color Yellow [facility] [address] [phone] Urine Appearance Clear Urine Specific [place] 1.025 N 1.010-1.030 Urine pH 5.0 N 5-9 Urine Urobilinogen Negative Negative Urine Ketones Negative Negative Urine Protein Negative Negative Urine Leukocytes Negative Negative Urine Blood Negative Negative Urine Nitrite Negative Negative Urine Bilirubin Negative Negative Urine Glucose Negative Negative CBC Auto Diff 10/29/2017 [facility] White Blood 7.6 10^3/uL N 3.5-10.8 [facility] [place] [address] [phone] Red Blood Count 4.37 10^6/uL N 4.00-5.40 [...] Red Blood Cells % 0.1 Inr/Protime 10/29/2017 [facility] Inr 0.79 N 0.77-1.[address] [place] [address] [phone] Laboratory test 10/29/2017 [facility] Partial 27.2 seconds N 26.0-36.[address] [place] [address] PTT [phone] Type & Screen 10/29/2017 [facility] Patient A Positive [address] [place] [address] [phone] Antibody Screen NEGATIVE Urine Culture And 10/29/2017 [facility] Urine Culture SEE RESULT [address] [place] [address] [phone] Laboratory test 10/23/2017 [facility] Hemoglobin A1c 6.1 % High 4.0- [address] (Glyco HGB) 5.6 [place] [address] [phone] Basic Metabolic 10/23/2017 [facility] Sodium 142 mmol/L N 139 - Panel [address] [place] [address] [phone] Potassium 4.3 mmol/L N 3.5-5.0 Chloride 107 mmol/L N 101-111 Co2 Carbon Dioxide 31 mmol/L N 22-32 Anion Gap 4 mmol/L N 2-11 Glucose 100 mg/dL N 70-100 Blood Urea Nitrogen 16 mg/dL N 6-24 Creatinine 0.60 mg/dL N 0.51-0.95 BUN/Creatinine Ratio 26.7 High 8-20 Calcium 9.6 mg/dL N 8.6-10.3 Egfr Non- 100.0 >60 Egfr 128.6 >60 23 Laboratory test 10/23/2017 [facility] Vitamin D 29.7 ng/mL N 20-[address] Total 25(Oh) [place] [address] [phone] Hepatitis C Antibody Nonreactive Nonreactive Laboratory 11/01/2012 [facility] Activated 25.9 22.18-37.18 test finding [address] [place] [address] Thrombo Time [phone] Inr/Protime 11/01/2012 [facility] Inr 0.82 Low 0.87-0.[address] [place] [address] [phone] Basic 11/01/2012 [facility] Sodium 142 mmol/L 133-[address] [place] [address] [phone] Potassium 3.6 mmol/L 3.5-5.0 Chloride 104 mmol/L 101-111 Co2 Carbon Dioxide 29.0 mmol/L 22-32 Anion Gap 9.0 mmol/L 2-11 Glucose 94 mg/dL 70-100 Blood Urea Nitrogen 19 mg/dL 6-24 Creatinine 0.80 mg/dL 0.50-1.40 BUN/Creatinine Ratio 23.8 High 8-20 Calcium 10.0 mg/dL High 8.1-9.9 Egfr Non- 72.9 >60 Egfr 93.8 >60 24 CBC No Diff 11/01/2012 [facility] White Blood 9.2 10^3/uL 4.8 -10.[address] [place] [address] [phone] Red Blood Count 4.41 10^6/uL 4.0-5.4 Hemoglobin 12.8 g/dL 12.0-16.0 Hematocrit 39 % 35-47 Mean Corpuscular Volume 89 fL 80-97 Mean Corpuscular Hemoglobin 29 pg 27-31 Mean Corpuscular HGB Conc 33 g/dL 31-36 Red Cell Distribution Width 14 % 10.5-15 Platelet Count 235 10^3/uL 150-450 Mean Platelet Volume 10 um3 7.4-10.4 1 07/11 2 Because ethnic data is not always readily [...] 15-29 5 Kidney failure <15 (or dialysis) 3 07/11 4 SEE RESULT BELOW Name: MARILIA NORIEGA : [address]: Anastacia Zacarias MD Acct: [id number] Unit: [id number] AGE: 68 Location: [facility] Re06/28/18 SEX: F Status: REG REF SPEC: [id number] KARINA: 06/28/18-[address] [facility] [address]: Anastacia Zacarias MD REQ: [id number] RECD: 06/28/18 STATUS: COMP OTHR DR: Jesus Alberto Robertson MD _ SOURCE: URINE SPDESC: ORDERED: Urine Culture COMMENTS: AA 07/11 QUERIES: Urine Source: Clean Catch Procedure Result Reported Site Urine Culture Final 06/29/18- 1210 ML No Growth (<1,000 CFU/mL) * ML - Main Lab . END OF REPORT DEPARTMENT OF PATHOLOGY, [address] [place] [address] Jaciel Terrazas M.D. Director [facility] # [id number] 5 Because ethnic data is not always readily [...] 15-29 5 Kidney failure <15 (or dialysis) 6 Please check labs 2 days before follow up 7 Please check labs 2 days before follow up 8 REFERENCE VALUE <1.0 (Negative) 9 REFERENCE VALUE <1.0 (Negative) Test Performed by: [place] [address] 10 Negative for cANCA and pANCA patterns by immunofluorescence. ADDITIONAL INFORMATION This test was developed and its performance characteristics determined by [facility] in a manner consistent with CLIA requirements. This test has not been cleared or approved by the U.S. Food and Drug Administration. Test Performed by: [place] [address] 11 REFERENCE VALUE Not Applicable 12 RESULT: HLA-B27 antigen was not detected. ADDITIONAL INFORMATION Method: Flow Cytometry Performing Laboratory CLIA# [id number] Test Performed by: [facility] [address] [place] [address] 13 Please check labs this week 14 Normal Range 180 to 914 Indeterminate Range 145 to 180 Deficient Range <145 15 Please check labs this week 16 Please check labs this week 17 <1:80 (Negative) REFERENCE VALUE <1:80 (Negative) Test Performed by: [facility] - [address] [address] 18 Please check labs this week 19 Please check labs this week 20 Please check labs this week 21 SEE RESULT BELOW Name: MARILIA NORIEGA : [address]: Anastacia Zacarias MD Acct: [id number] Unit: [id number] AGE: 67 Location: [facility] Re10/29/17 SEX: F Status: REG REF SPEC: [id number] KARINA: 10/29/17-[address]: Anastacia Zacarias MD REQ: [id number] RECD: 10/29/17 STATUS: [facility] DR: Jesus Alberto Robertson MD _ SOURCE: URINE SPDESC: ORDERED: Urine Culture QUERIES: Urine Source: Clean Catch Procedure Result Reported Site Urine Culture Final 10/30/171216 ML No growth of clinically significant organisms * ML - Main Lab . END OF REPORT DEPARTMENT OF PATHOLOGY, [address] [place] [address] Jaciel Terrazas M.D. Director [facility] # [id number] 22 Therapeutic target for the treatment of diabetes mellitus patients is <7% HBA1C, and in selective patients <6.0%. Please refer to [place] [employer] diabetic care guidelines for further information. 23 Because ethnic data is not always readily [...] 15-29 5 Kidney failure <15 (or dialysis) 24 Because ethnic data is not always readily [...] dialysis) Procedures Date Code Description Status 06/17/2018 24082 Inject/Drain Joint/Bursa Major W/O US Completed 01/08/2018 69746 Removal Devitalization Tissue Wound Less Than Equal 20 Completed Square CM 01/01/2018 40665 Removal Devitalization Tissue Wound Less Than Equal 20 Completed Square CM 12/25/2017 30427 Removal Devitalization Tissue Wound Less Than Equal 20 Completed Square CM 11/06/2017 14510 THR Total Hip Replacement Completed 11/06/2017 49559 THR Total Hip Replacement Completed 11/06/2017 49777 THR Total Hip Replacement Completed 09/17/201747923 Inject/Drain Joint/Bursa Major W/O US Completed 11/09/201646636 Inject/Drain Joint/Bursa Major W/O US Completed 07/10/2013 68954 Polysomnography Sleep Staging 4+ Parameters Completed 03/19/2013 78353 EKG Tracing & Interpretation Completed 11/15/2012 12391 ECHO Transthoracic, Real-Time 2D With Doppler And Color Completed Flow 11/05/2012 73332 Left Heart Cath. Incl S/I Coronaries, Angio S/I V Gram If Completed Done 10/21/2012 80336 Stress Test Completed 10/21/2012 23844 Myocardial Perfusion Imaging Tomographic (Spect) Multiple Completed Studies 10/08/2012 75154 EKG Tracing & Interpretation Completed Encounters Type Date Location Provider Dx Diagnosis Office Visit 06/17/2018 Orthopedic Anastacia Zacarias M25.561 Pain in right 1:30p Services Of Natasha Ramirez knee M25.461 Effusion, right knee M17.11 Unilateral primary osteoarthritis, right knee M76.31 Iliotibial band syndrome, right leg S83.422A Sprain of lateral collateral ligament of left knee, init Office Visit 06/06/2018 Rheumatology Yohan 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 M.D. knee M17.11 Unilateral primary osteoarthritis, right knee M25.551 Pain in right hip Z96.641 Presence of right artificial hip joint M54.31 Sciatica, right side Office Visit 01/15/2018 10:15a Wound Care Jesus Alberto Marcus T81.31xD Disruption of Center AT [facility] Ashley Alvarez external operation (surgical) wound, NEC, subs E11.9 Type 2 diabetes mellitus without complications I10 Essential (primary) hypertension Office Visit 12/25/2017 9:30a Wound Care Jesus Alberto Marcus T81.31xA Disruption of Center AT [facility] Ashley Alvarez external operation (surgical) wound, NEC, init E11.622 Type 2 diabetes mellitus with other skin ulcer I10 Essential (primary) hypertension E78.5 Hyperlipidemia, unspecified E03.9 Hypothyroidism, unspecified Office Visit 11/07/2017 9:55a [facility] Mic Z47.1 Aftercare Assoc,RUIZ [place] following joint Hospitalists replacement surgery Z96.641 Presence of right artificial hip joint M16.11 Unilateral primary osteoarthritis, right hip M25.551 Pain in right hip Office Visit 11/06/2017 [facility] Arden Ingram Z47.1 Aftercare 2:53p [...] primary osteoarthritis of hip Office Visit 07/19/2017 [facility] Renata Arevalo R11.2 Nausea with 3:20p Assoc,ty Harris, WET END TESTER vomiting, Hospitalists unspecified E83.42 Hypomagnesemia I10 Essential (primary) hypertension E78.5 Hyperlipidemia, unspecified Office Visit 07/18/2017 [facility] Chelsea R11.2 Nausea with 3:19p Assoc,ty Berumen NP vomiting, Hospitalists unspecified E83.42 Hypomagnesemia I10 Essential (primary) hypertension E78.5 Hyperlipidemia, unspecified Office Visit 11/09/2016 2:30p Orthopedic Krishan Garcia, S46.012D Strain of Services Of MD chow/ayaz the C.M.A. 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 780.59 Sleep Disturbances Center Ashley Martinez Other 780.79 Malaise And Fatigue Other 786.09 Dyspnea & Respiratory Abnormalities Other Office Visit 03/19/2013 8:45a [facility] Linsey Canas, 327.23 Obstructive Sleep Of [facility] M.D. Apnea Adult & Pediatric 401.9 Hypertension Unspec 278.00 Obesity Unspec 785.1 Palpitations Office Visit 11/13/2012 [facility] Linsey Canas, 427.0 PSVT Paroxysmal 2:45p Cardiology Of M.DStacy Supraventricular [facility] Tachycardia 785.1 Palpitations 401.9 Hypertension Unspec Office Visit 11/01/2012 1:45p [facility] Linsey Canas, 786.50 Pain Chest Of [facility] AT [facility] M.D. Unspec 427.0 PSVT Paroxysmal Supraventricular Tachycardia 785.1 Palpitations 401.9 Hypertension Unspec Office Visit 10/08/2012 9:45a [facility] Linsey Canas, 786.50 Pain Chest Of [facility] M.D. Unspec 786.09 Dyspnea & Respiratory Abnormalities Other 272.0 Hypercholesterolemia Pure 278.00 Obesity Unspec Plan of Treatment Future Appointment(s):07/22/2018 8:45 am - Anastacia Zacarias M.D. at [facility]07/11/2018 1:15 pm - ALBERTO Hua at [facility]07/11/2018 1:15 pm - RUIZ Holly at [facility]07/11/2018 1:15 pm - Anastacia Zacarias M.D. at [facility]09/04/2018 9:20 am - Yohan Graves M.D. at Rheumatology Services [facility]11/08/2018 10:15 am - Anastacia Zacarias M.D. at [facility]06/28/2018 - Anastacia Zacarias M.D.M25.561 Pain in right kneeFollow up: Follow up: 2 weeks after cyiydthS42.461 Effusion, right kneeM17.11 Unilateral primary osteoarthritis, right knee
--- OUTSIDE RECORDS SUMMARY | 2018-07-11 10:46 | XMS REPORT | Continuity of Care Document ---
:1950 External Reference #:[id number] Author Name Vera Tolbert Care Team Providers Name Role Phone Jesus Alberto Robertson MD Primary Care Physician Unavailable Payers Date Identification Numbers Payment Provider Subscriber Policy Number: [id number] [employer] Number: [id number] [address] PayID: [id number] [place] [address] Advance Directives Description No Information Available Problems [...] capsule/ta Star, blet daily M.D. by mouth [id number] 05/01 Active Chewtabs 1mg 90uni take one ts capsule/ta Star, blet daily M.D. sublingual ly Sulfasalazine 05/01 Active Tablets 500mg 500ta Take 2 bs tabs in Star, the M.D. morning and 2 tabs in the evening for a total of 4 daily tabs daily ongoing Clindamycin HCL 01/10 Active Capsules 300mg 4caps take 2 tablets 1 seen, hour prior MD to dental work Atenolol 10/22 Active Tablets 25mg 90tab 1 by mouth s every day Ashley Canas Cozaar Active Tablets 50mg 30tab 1 po qd /0000 s Potassium Active Tablets ER 10Meq 90tab 1 po qd Unknown Chloride ER / s Effexor XR Active Caps ER 225mg 30cap 1 po qd / 24HR s Metformin HCL ER Active Tablets ER 500mg 30tab 1 po qd Unknown / 24HR s Singulair Active Tablets 10mg 90tab 1 po qd / s Levothyroxine Active Tablets 50mcg 1 by mouth Unknown Sodium /0000 every day Benadryl Allergy Active Capsules 25mg Unknown / Advair Diskus Active Aerosol 100-50mcg inhale one Unknown /0000 /Dose puff by mouth twice a day [...] for M.D. 03/03 Nystatin 11/19 Hx Powder [id number] 15gm apply to t/GM affected Rell, - [...] Hx Suspension 50mcg/Act 1unit 2 sprays Unknown s to each - nostril 08/09 daily Advair Diskus Hx - 08/09 Nitrostat Hx Tablets Sub 0.4mg 25tab one sl Unknown s q5min up - to 3 doses 08/09 prn /2017 Albuterol Sulfate Hx - 08/09 Medications Administered [...] Result H/L Range Note Laboratory test 06/04/2018 [facility] C Reactive 2.79 mg/L N < 8.[address] [place] [address] [phone] Erythrocyte Sed Rate 38 mm/Hr N 0-40 2 CBC Auto Diff 06/04/2018 [facility] White Blood 6.1 10^3/uL N 3.5-10.[address] [place] [address] [phone] Red Blood Count 4.03 10^6/uL N 4.00-5.40 [...] Cells % 0 Comp Metabolic Panel 06/04/2018 [facility] Sodium 139 mmol/L N 135-[address] [place] [address] [phone] Potassium 4.3 mmol/L N 3.5-5.0 Chloride 105 [...] Egfr 123.0 >60 3 Laboratory test 04/23/2018 [facility] Rheumatoid Factor < 10 IU/ mL N <[address] [place] [address] [phone] Nuclear AB (Amara) By Ifa Igg <1:80 (Negative) 5 Erythrocyte Sed Rate 38 mm/Hr N 0-40 6 C Reactive Protein 1.60 mg/L N <8.01 7 Magnesium 2.0 mg/dL N 1.9-2.7 8 Vitamin B12 And 04/23/2018 [facility] Vitamin B12 298 pg/mL N 180-914 [address] [place] [address] [phone] Folic Acid (Folate) 14.57 ng/mL >3.99 10 Laboratory test 04/23/2018 [facility] TSH (Thyroid 0.57 mcIU/mL N 0.34-5.60 [address] Stim [place]orm) [place] [address] [phone] Hla B27 04/23/2018 [facility] Hla B27 Negative [address] [place] [address] [phone] Hla B27 Interp See Comment 13 Anca AB Ser If 04/23/2018 [facility] C-Anca Negative Negative [address] [place] [address] [phone] P-Anca Negative Negative 14 Ssa/SSB Abs Igg 04/23/2018 [facility] SS-A/Ro Antibody <0.2 U [address] [place] [address] [phone] SS-B/La Antibody 0.3 U 16 Urinalysis Profile 10/29/2017 [facility] Urine Color Yellow [address] [place] [address] [phone] Urine Appearance Clear Urine Specific Gladys 1.025 N 1.010-1.030 Urine pH 5.0 N 5-9 Urine Urobilinogen Negative Negative Urine Ketones Negative Negative Urine Protein Negative Negative Urine Leukocytes Negative Negative Urine Blood Negative Negative Urine Nitrite Negative Negative Urine Bilirubin Negative Negative Urine Glucose Negative Negative CBC Auto Diff 10/29/2017 [facility] White Blood 7.6 10^3/uL N 3.5-10.8 [place] [address] [phone] Red Blood Count 4.37 10^6/uL N 4.00-5.40 [...] Red Blood Cells % 0.1 Inr/Protime 10/29/2017 [facility] Inr 0.79 N 0.77-1.[address] [place] [address] [phone] Laboratory test 10/29/2017 [facility] Partial 27.2 seconds N 26.0-36.[address] [place] [address] PTT [phone] Type & Screen 10/29/2017 [facility] Patient A Positive [address] [place] [address] [phone] Antibody Screen NEGATIVE Urine Culture And 10/29/2017 [facility] Urine Culture SEE RESULT [address] [place] [address] [phone] Laboratory test 10/23/2017 [facility] Hemoglobin A1c 6.1 % High 4.0- [address] (Glyco HGB) 5.6 [place], [place] [id number] [phone] Basic Metabolic 10/23/2017 [facility] Sodium 142 mmol/L N 139 - Panel [address] [place] [address] [phone] Potassium 4.3 mmol/L N 3.5-5.0 Chloride 107 mmol/L N 101-111 Co2 Carbon Dioxide 31 mmol/L N 22-32 Anion Gap 4 mmol/L N 2-11 Glucose 100 mg/dL N 70-100 Blood Urea Nitrogen 16 mg/dL N 6-24 Creatinine 0.60 mg/dL N 0.51-0.95 BUN/Creatinine Ratio 26.7 High 8-20 Calcium 9.6 mg/dL N 8.6-10.3 Egfr Non- 100.0 >60 Egfr 128.6 >60 19 Laboratory test 10/23/2017 [facility] Vitamin D 29.7 ng/mL N 20-[address] Total 25(Oh) [place], [place] [address] [phone] Hepatitis C Antibody Nonreactive Nonreactive Laboratory 11/01/2012 [facility] Activated 25.9 22.18-37.18 test finding [address] [place] [address] Thrombo Time [phone] Inr/Protime 11/01/2012 [facility] Inr 0.82 Low 0.87-0.[address] [place], [place] [address] [phone] Basic 11/01/2012 [facility] Sodium 142 mmol/L 133-[address] [place] [address] [phone] Potassium 3.6 mmol/L 3.5-5.0 Chloride 104 mmol/L 101-111 Co2 Carbon Dioxide 29.0 mmol/L 22-32 Anion Gap 9.0 mmol/L 2-11 Glucose 94 mg/dL 70-100 Blood Urea Nitrogen 19 mg/dL 6-24 Creatinine 0.80 mg/dL 0.50-1.40 BUN/Creatinine Ratio 23.8 High 8-20 Calcium 10.0 mg/dL High 8.1-9.9 Egfr Non- 72.9 >60 Egfr 93.8 >60 20 CBC No Diff 11/01/2012 [facility] White Blood 9.2 10^3/uL 4.8 -10.[address] [place] [address] [phone] Red Blood Count 4.41 10^6/uL 4.0-5.4 Hemoglobin [...] REFERENCE VALUE <1:80 (Negative) Test Performed by: [facility] - [address] [address] 6 Please check labs this week 7 [...] INFORMATION Method: Flow Cytometry Performing Laboratory CLIA# [id number] Test Performed by: [facility] - [address] [address] 14 Negative for cANCA and pANCA patterns by immunofluorescence. ADDITIONAL INFORMATION This test was developed and its performance characteristics determined by [facility] in a manner consistent with CLIA requirements. This test has not been cleared or approved by the U.S. Food and Drug Administration. Test Performed by: [facility] - [facility] [address] [place] [address] 15 REFERENCE VALUE <1.0 (Negative) 16 REFERENCE VALUE <1.0 (Negative) Test Performed by: [facility] [address] [place] [address] 17 SEE RESULT BELOW Name: MARILIA NORIEGA : [address]: Anastacia Zacarias MD Acct: [id number] Unit: [id number] AGE: 67 Location: [facility] Re10/29/17 SEX: F Status: REG REF SPEC: [id number] KARINA: 10/29/[address] [facility] [address]: Anastacia Zacarias MD REQ: [id number] RECD: 10/29/176 STATUS: SAMIR OLIVERA DR: Jesus Alberto Robertson MD _ SOURCE: URINE SPDESC: ORDERED: Urine Culture QUERIES: Urine Source: Clean Catch Procedure Result Reported Site Urine Culture Final 10/30/17- 1217 ML No growth of clinically significant organisms * ML - Main Lab . END OF REPORT DEPARTMENT OF PATHOLOGY, [address] [place] [address] Jaciel Terrazas M.D. Director [facility] # [id number] 18 Therapeutic target for the treatment of diabetes mellitus patients is <7% HBA1C, and in selective patients <6.0%. Please refer to [employer] diabetic care guidelines for further [...] dialysis) Procedures Date Code Description Status 06/17/2018 41449 Inject/Drain Joint/Bursa Major W/O US Completed 01/08/2018 34769 Removal Devitalization Tissue Wound Less Than Equal 20 Completed Square CM 01/01/2018 97027 Removal Devitalization Tissue Wound Less Than Equal 20 Completed Square CM 12/25/2017 19498 Removal Devitalization Tissue Wound Less Than Equal 20 Completed Square CM 11/06/2017 45517 THR Total Hip Replacement Completed 11/06/2017 38026 THR Total Hip Replacement Completed 11/06/2017 04062 THR Total Hip Replacement Completed 09/17/2017 17416 Inject/Drain Joint/Bursa Major W/O US Completed 11/09/2016 55493 Inject/Drain Joint/Bursa Major W/O US Completed 07/10/2013 35600 Polysomnography Sleep Staging 4+ Parameters Completed 03/19/2013 60091 EKG Tracing & Interpretation Completed 11/15/2012 46119 ECHO Transthoracic, Real-Time 2D With Doppler And Color Completed Flow 11/05/2012 55450 Left Heart Cath. Incl S/I Coronaries, Angio S/I V Gram If Completed Done 10/21/2012 17251 Stress Test Completed 10/21/2012 29504 Myocardial Perfusion Imaging Tomographic (Spect) Multiple Completed Studies 10/08/2012 97328 EKG Tracing & Interpretation Completed Encounters Type Date Location Provider Dx Diagnosis Office Visit 06/17/2018 Orthopedic Anastacia Zacarias, M25.561 Pain in right 1:30p Services Of Natasha Ramirez knee M25.461 Effusion, right knee M17.11 Unilateral primary osteoarthritis, right knee M76.31 Iliotibial band syndrome, right leg S83.422A Sprain of lateral collateral ligament of left knee, init Office Visit 06/06/2018 Rheumatology Yohan L40.51 Distal 8:40a Services Of Amy Graves M.D. 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 interphalangeal psoriatic arthropathy G62.9 Polyneuropathy, unspecified Z79.899 Other termite control servicer (current) drug therapy E53.8 Deficiency of other specified B group vitamins Office 03/27/2018 Rheumatology Yohan M35.01 Sicca syndrome with Visit 2:00p Services Of Amy Graves keratoconjuntani Ramirez L40.51 Distal interphalangeal psoriatic arthropathy G62.9 Polyneuropathy, unspecified R20.8 Other disturbances of skin sensation M62.40 Contracture of muscle, unspecified site Office Visit 03/04/2018 2:45p Orthopedic Anastacia Zacarias M54.31 Sciatica, right Services Of Natasha Ramirez side Z96.641 Presence of right artificial hip joint M25.551 Pain in right hip Office Visit 02/01/2018 11:15a Orthopedic Services Anastacia Zacarias, M25.561 Pain in right Of C.MaddyAStacy MDarnell knee M17.11 Unilateral primary osteoarthritis, right knee M25.551 Pain in right hip Z96.641 Presence of right artificial hip joint M54.31 Sciatica, right side Office Visit 01/15/2018 10:15a Wound Care Jesus Alberto Marcus T81.31xD Disruption of Center AT [facility] Ashley Alvarez external operation (surgical) wound, NEC, subs E11.9 Type 2 diabetes mellitus without complications I10 Essential (primary) hypertension Office Visit 12/25/2017 9:30a Wound Care Jesus Alberto Marcus T81.31xA Disruption of Center AT [facility] Ashley Alvarez external operation (surgical) wound, NEC, init E11.622 Type 2 diabetes mellitus with other skin ulcer I10 Essential (primary) hypertension E78.5 Hyperlipidemia, unspecified E03.9 Hypothyroidism, unspecified Office Visit 11/07/2017 9:55a [place] Huma Haile Z47.1 Aftercare Assoc,RUIZ [place] following joint Hospitalists replacement surgery Z96.641 Presence of right artificial hip joint M16.11 Unilateral primary osteoarthritis, right hip M25.551 Pain in right hip Office Visit 11/06/2017 [facility] Arden Ingram Z47.1 Aftercare 2:53p Assocty II, M.D. following joint Hospitalists replacement surgery [...] Zacarias, M25.551 Pain in right Of [facility] M.DStacy hip M25.552 Pain in left hip M16.0 Bilateral primary osteoarthritis of hip Office Visit 07/19/2017 [facility] Renata Arringtoncarlossabina R11.2 Nausea with 3:20p Assoc,ty Harris NP vomiting, Hospitalists unspecified E83.42 Hypomagnesemia I10 Essential (primary) hypertension E78.5 Hyperlipidemia, unspecified Office Visit 07/18/2017 [facility] Chelsea R11.2 Nausea with 3:19p Assoc,ty Berumen NP vomiting, Hospitalists unspecified E83.42 Hypomagnesemia I10 Essential (primary) hypertension E78.5 Hyperlipidemia, unspecified Office Visit 11/09/2016 2:30p Orthopedic Krishan Garcia, S46.012D Strain of Services Of MD chow/ayaz the [facility] 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 780.59 Sleep Disturbances Center Ashley Martinez Other 780.79 Malaise And Fatigue Other 786.09 Dyspnea & Respiratory Abnormalities Other Office Visit 03/19/2013 8:45a [facility] Linsey Canas, 327.23 Obstructive Sleep Of [facility] M.D. Apnea Adult & Pediatric 401.9 Hypertension Unspec 278.00 Obesity Unspec 785.1 Palpitations Office Visit 11/13/2012 [place] Linsey Canas, 427.0 PSVT Paroxysmal 2:45p Cardiology Of .D Supraventricular [facility] Tachycardia 785.1 Palpitations 401.9 Hypertension Unspec Office Visit 11/01/2012 1:45p [facility] Linsey Canas, 786.50 Pain Chest Of [facility] AT [facility] M.D. Unspec 427.0 PSVT Paroxysmal Supraventricular Tachycardia 785.1 Palpitations 401.9 Hypertension Unspec Office Visit 10/08/2012 9:45a [facility] Linsey Canas, 786.50 Pain Chest Of [facility] M.D. Unspec 786.09 Dyspnea & Respiratory Abnormalities Other 272.0 Hypercholesterolemia Pure 278.00 Obesity Unspec Plan of Treatment Future Appointment(s):07/22/2018 8:45 am - Anastacia Zacarias M.D. at [facility]07/11/2018 2:00 pm - ALBERTO Hua at [facility]07/11/2018 2:00 pm - RUIZ Holly at [facility]07/11/2018 2:00 pm - Anastacia Zacarias M.D. at [facility]09/04/2018 9:20 am - Yohan Graves M.D. at [facility]11/08/2018 10:15 am - Anastacia Zacarias M.D. at [facility]06/28/2018 - Anastacia Zacarias M.D.M25.561 Pain in right kneeFollow up: Follow up: 2 weeks after cmcbwuxL68.461 Effusion, right kneeM17.11 Unilateral primary osteoarthritis, right knee
[2018-07-11] MEDS ORDERED: Famotidine IV* 10 MG/ML 2 ML (20 mg) ONE (11:04)
[2018-07-11] MEDS ORDERED: Clindamycin 900 MG/D5W BAG(*) 900 MG/50 ML BAG IVPB ONE (11:04)
[2018-07-11] MEDS ORDERED: Metoclopramide IV* 5 MG/ML 2 ML VIAL ONE (11:04)
[2018-07-11] MEDS ORDERED: fentaNYL* 50 MCG/ML 2 ML VIAL (100 MCG VIAL) ONE ×2 (11:39→16:07)
[2018-07-11] MEDS ORDERED: Propofol* 10 MG/ML 20 ML BTL ONE (11:40)
[2018-07-11] MEDS ORDERED: Midazolam* 1 MG/ML 2 ML VIAL (2 MG) ONE ×3 (11:40→14:57)
[2018-07-11] MEDS ORDERED: ROPIVACAINE 5 MG/ML 30 ML BTL (0.5%) ONE ×2 (13:28→13:49)
[2018-07-11] MEDS ORDERED: fentaNYL* 50 MCG/ML 2 ML VIAL (100 MCG VIAL) IV PRN (13:39)
[2018-07-11] MEDS ORDERED: oxyCODONE TAB* 5 MG TAB PO PRN (13:39)
[2018-07-11] MEDS ORDERED: Ondansetron INJ* 2 MG/ML VIAL IV PRN ×2 (13:39→16:32)
[2018-07-11] MEDS ORDERED: Ketorolac INJ* 30 MG/ML 1 ML VIAL IV PRN (13:39)
[2018-07-11] MEDS ORDERED: DiMENhydriNATE IV* 50 MG/ML VIAL IV PUSH PRN (13:39)
[2018-07-11] MEDS ORDERED: Naloxone* 0.4 MG/ML 1 ML VIAL IV PRN (13:39)
[2018-07-11] MEDS ORDERED: Levalbuterol 0.63MG/3ML NEB* UNIT OF USE INH ONE ×2 (13:39→13:40)
[2018-07-11] MEDS ORDERED: Acetaminophen IV 1GM/100ML * 1,000 MG/100 ML VIAL IVPB ONE (13:39)
[2018-07-11] MEDS ORDERED: Lidocaine 1%* 5 ML VIAL ONE (13:49)
[2018-07-11] MEDS ORDERED: Bupivacaine-MPF SPINAL* 7.5 MG/ML - 2ML AMP ONE (15:19)
[2018-07-11] MEDS ORDERED: Lidocaine 2% PF * 5 ML VIAL ONE (15:20)
[2018-07-11] MEDS ORDERED: Phenylephrine IV* 40 MCG/ML 10 ML SYRINGE ONE (16:13)
[2018-07-11] MEDS ORDERED: Bisacodyl SUPP* 10 MG SUPP PR PRN (16:32)
[2018-07-11] MEDS ORDERED: Ondansetron TAB* 4 MG PO PRN (16:32)
[2018-07-11] MEDS ORDERED: diPHENhydraMINE IV* 50 MG/ML 1 ml VIAL (BENADRYL) IV PRN (16:32)
[2018-07-11] MEDS ORDERED: oxyCODONE/Acetamin 5/325 MG* TAB PO PRN (16:32)
[2018-07-11] MEDS ORDERED: Magnesium Hydroxide LIQ* 30 ML UDC PO PRN (16:32)
[2018-07-11] MEDS ORDERED: Cyclobenzaprine TAB* 10 MG PO PRN (16:32)
[2018-07-11] MEDS ORDERED: Polyethylene Glycol 3350* 17 GM PACKET PO PRN (16:32)
[2018-07-11] MEDS ORDERED: ALPRAZolam TAB* 0.25 MG PO PRN (16:38)
[2018-07-11] MEDS ORDERED: Dextrose 50% Syringe 50 ML* 25 GM/50 ML SYRINGE IV PUSH PRN (16:54)
[2018-07-11] MEDS ORDERED: Lactated Ringers 1000 ML Bag* 1,000 ML IV SCH (17:00)
[2018-07-11] MEDS ORDERED: Albuterol 2.5 MG/3 ML NEB.SOL* (0.083%) INH PRN (17:12)
[2018-07-11] MEDS ORDERED: HYDROmorphone INJ1* 1 MG/ML SYRINGE ONE (17:33)
[2018-07-11] MEDS ORDERED: Acetaminophen IV 1GM/100ML * 100 ML ONE (17:33)
[2018-07-11] MEDS ORDERED: Ketorolac INJ* 30 MG/ML 1 ML VIAL ONE (17:33)
[2018-07-11] MEDS ORDERED: oxyCODONE TAB* 5 MG TAB ONE (17:33)
[2018-07-11] MEDS: HYDROmorphone INJ1* 1 MG/ML SYRINGE IV PRN ×2 (17:36→18:05)
[2018-07-11] MEDS: oxyCODONE/Acetamin 5/325 MG* TAB PO PRN ×2 (19:34→23:54)
--- NOTE | 2018-07-11 19:35 | CONS ---
CC: Dr. Robertson; Dr. Graves; Dr. Zacarias * CONSULTATION REPORT: DATE OF CONSULT: 07/11/18 PRIMARY CARE PROVIDER: Dr. Robertson. REASON FOR CONSULT: Consultation was requested by Dr. Zacarias for medical management of the patient's diabetes, hypertension. CHIEF COMPLAINT: Right knee pain. HISTORY OF PRESENT ILLNESS: Marilia Calderon is a 68-year-old female with history of psoriatic arthritis, who is just recovering in postoperative unit status post right knee replacement. The right knee replacement surgery was elective, performed by Dr. Zacarias today. The patient has history of diabetes and hypertension and Dr. Zacarias requested a medicine consult in regards to management of the patient's chronic conditions. PAST MEDICAL HISTORY: 1. History of anxiety. 2. History of chronic low back pain. 3. Hypertension. 4. Dyslipidemia. 5. Diabetes type 2. 6. History of asthma. PAST SURGICAL HISTORY: 1. History of anal fistula repair in 1970s. 2. History of knee arthroscopies bilaterally. 3. Status post right hip replacement in 2018. 4. Status post right knee replacement today on 07/11/18. MEDICATIONS AT HOME: Include: 1. Sulfasalazine 500 mg b.i.d. 2. Metformin 500 mg q.a.m. 3. Venlafaxine 75 mg, the patient takes 150 mg daily. 4. Folic acid 1 mg daily. 5. Potassium chloride 10 mEq daily. 6. Oxycodone 10 mg on a p.r.n. basis. 7. Singulair 10 mg at bedtime. 8. Nasonex 1 spray inhalation in the morning. 9. Losartan 50 mg at bedtime. 10. Levothyroxine 50 mcg q.a.m. 11. Nizoral cream on a p.r.n. basis. 12. Advair 250/50 one inhalation b.i.d. 13. Calcium carbonate 500 mg b.i.d. p.r.n. 14. Vitamin D3 2000 units daily. 15. Atorvastatin 80 mg at bedtime. 16. Atenolol 25 mg q.a.m. 17. Albuterol inhaler on a p.r.n. basis. 18. Xanax 0.25 mg t.i.d. p.r.n. 19. Benadryl 25 mg at bedtime p.r.n. 20. Vitamin B12 one tablet daily. ALLERGIES: NIACIN and PENICILLINS. FAMILY HISTORY: Positive for mother with history of stroke and father with history of [place] at the age of 85. There was uterine cancer in her aunt. SOCIAL HISTORY: The patient quit smoking over 30 years ago. She rarely uses alcohol. She denies any drug use. She is retired and lives with her , Jr Dee. REVIEW OF SYSTEMS: Please see history of present illness. The patient currently feels very well after surgery. She stated that due to not needing general anesthesia, she feels very well. Her postoperative pain is well controlled. She has no other issues. She stated that during the winter season she uses albuterol nebulizer occasionally due to her asthma flare-ups, but she has not had a flare-up for the past several weeks. All the remaining 12 systems were reviewed with the patient and were otherwise negative. PHYSICAL EXAM: Blood pressure of 146/79, heart rate of 60 and regular, respiratory rate 16, oxygen saturation 96% on room air, temperature of 98.1. General: The patient is a very pleasant 68-year-old obese female, who is in no acute distress. Alert, awake, and oriented x3. HEENT: Head: Atraumatic, normocephalic. Eyes: Pupils are equal, reactive to light and accommodation. Oropharynx is clear. Mucosa moist. Neck: Supple. No JVD. No bruits bilaterally. Cardiovascular: Regular rate and rhythm. No murmur. Respiratory : Occasional wheeze in the right mid lung, otherwise clear. Abdomen: Soft, nontender. Bowel sounds are present in all 4 quadrants. Extremities: There is no edema. Pulses are 2+ bilaterally. There is no clubbing or cyanosis. The right knee is in postoperative dressings that were not unwrapped. The patient also has a Cryo unit on the right knee. On evaluation of the skin, the patient has psoriatic plaques underneath both breasts, on her upper inner thighs and on her buttocks. Neuro Evaluation: Speech is clear. Cranial nerves II through XII are grossly intact. Motor strength is 5/5 bilaterally. The examination was limited due to the fact that the patient was asked not to move her postoperative leg. LABORATORY DATA: Currently none apart from the patient's glucose level at 99 today. ASSESSMENT AND PLAN: 1. The patient is postoperative day 0 after an elective right knee replacement. As per Dr. Zacarias, the patient is going to continue physical therapy postoperatively. Pain management is also as per orthopedic group. The patient was already started on apixaban for DVT prophylaxis. 2. For the patient's diabetes, her metformin is going to be held and the patient is going to be placed on insulin sliding scale. 3. For her hypertension, the patient's outpatient medications are restarted. 4. For the patient's history of anxiety, alprazolam is going to be continued as taken at home. 5. For the patient's asthma, the patient is going to be continued on her outpatient medications. So far, there is no indication of exacerbation. I will place the patient on albuterol nebulizers on a p.r.n. basis. 6. For DVT prophylaxis, as mentioned above, the patient was already placed on apixaban. Thank you very much for allowing our service to see the patient in consultation. We will follow up with the patient on a daily basis. TIME SPENT: Approximately 55 minutes was spent on consultation of this patient. [id number]/[facility] #: [id number] FRANCES
[2018-07-11] MEDS: Morphine VIAL* 4 MG/ML VIAL (1 ml vial) IV PRN ×2 (19:45→21:52)
[2018-07-11] MEDS: Insulin LISPRO* 1 UNITS UNIT SUBCUT SCH (20:15)
[2018-07-11] MEDS ORDERED: Montelukast Sodium TAB* 10 MG PO SCH (21:00)
[2018-07-11] MEDS ORDERED: Losartan TAB* 25 MG PO SCH (21:00)
[2018-07-11] MEDS ORDERED: Atorvastatin* 80 MG TAB PO SCH (21:00)
[2018-07-11] MEDS: Docusate CAP* 100 MG PO SCH (21:56)
[2018-07-11] MEDS: traMADol TAB* 50 MG PO PRN (21:57)
[2018-07-11] MEDS: oxyCODONE TAB* 5 MG TAB PO PRN (21:58)
[2018-07-11] MEDS: Magnesium Hydroxide LIQ* 30 ML UDC PO SCH (22:00)
[2018-07-11] MEDS: Clindamycin 600 MG IVPREMIX(* 600 MG/50 ML SDV IV SCH (22:23)
[2018-07-11] MEDS: sulfaSALAzine TAB* 500 MG PO SCH (22:23)
[2018-07-12] MEDS: Albuterol HFA INHALER* 8 gm MDI INH SCH ×2 (00:49→08:14)
[2018-07-12] MEDS: Acetaminophen TAB* 325 MG PO SCH ×2 (00:50→08:17)
[2018-07-12] MEDS: Fluticasone-Salmeterol 250-50* DISKUS INH SCH ×2 (00:50→08:15)
[2018-07-12] MEDS: Morphine VIAL* 4 MG/ML VIAL (1 ml vial) IV PRN (01:21)
[2018-07-12] MEDS: oxyCODONE TAB* 5 MG TAB PO PRN ×3 (02:13→10:17)
[2018-07-12] MEDS: oxyCODONE/Acetamin 5/325 MG* TAB PO PRN ×3 (04:01→12:14)
[2018-07-12] MEDS: traMADol TAB* 50 MG PO PRN ×2 (04:02→10:24)
[2018-07-12 05:49] LABS: ABS Basophils 0 10^3/ul (0-0.2); ABS Eosinophils 0.1 10^3/ul (0-0.6); ABS Lymphocytes 0.9 10^3/ul (1.0-4.8); ABS Monocytes 0.6 10^3/ul (0-0.8); ABS Neutrophils 5.9 10^3/ul (1.5-7.7); ABS Nucleated RBC 0 10^3/ul; Eosinophil % 1.7 %; Hematocrit 33 % (35-47); Hemoglobin 10.9 g/dl (12.0-16.0); Lymphocyte % 11.7 %; Mean Corpuscular HGB Conc 33 g/dl (31-36); Mean Corpuscular Hemoglobin 30 pg (27-31); Mean Corpuscular Volume 90 fL (80-97); Nucleated Red Blood Cells % 0; Platelet Count 164 10^3/ul (150-450); Red Blood Count 3.69 10^6/ul (4.00-5.40); Red Cell Distribution Width 14 % (10.5-15); White Blood Count 7.6 10^3/ul (3.5-10.8)
[2018-07-12] MEDS ORDERED: Levothyroxine TAB* 50 MCG TAB PO SCH (06:00)
[2018-07-12 06:07] LABS: BUN/Creatinine Ratio 18.3 (8-20); EGFR African American 120.7 (>60); EGFR Non-African American 99.7 (>60)
[2018-07-12] MEDS: Clindamycin 600 MG IVPREMIX(* 600 MG/50 ML SDV IV SCH (06:14)
[2018-07-12] MEDS: Insulin LISPRO* 1 UNITS UNIT SUBCUT SCH ×2 (08:12→12:13)
[2018-07-12] MEDS: Magnesium Hydroxide LIQ* 30 ML UDC PO SCH (08:12)
[2018-07-12] MEDS: Docusate CAP* 100 MG PO SCH (08:12)
[2018-07-12] MEDS: sulfaSALAzine TAB* 500 MG PO SCH (08:13)
[2018-07-12] MEDS ORDERED: Atenolol TAB* 25 MG PO SCH (09:00)
[2018-07-12] MEDS ORDERED: metFORMIN* 500 MG TAB PO SCH (09:00)
[2018-07-12] MEDS ORDERED: Venlafaxine CAP (NF) 75 MG TAB PO SCH (09:00)
[2018-07-12] MEDS ORDERED: Apixaban* 2.5 MG TAB PO SCH (09:00)
[2018-07-12] MEDS ORDERED: Potassium Chlor TAB* 10 MEQ TAB.ER PO SCH (09:00)
--- NOTE | 2018-07-12 09:13 | PN ---
Subjective Date of Service: 07/12/18 Interval History: Pt feels well, wants to go home today Objective Active Medications: Acetaminophen (Tylenol Tab*) 975 mg PO Q8H [facility] Last Admin: 07/12/18 08:17 Dose: Not Given Albuterol (Ventolin Hfa Inhaler*) 2 puff INH BID [facility] Last Admin: 07/12/18 08:14 Dose: 2 puff Albuterol (Ventolin 2.5 Mg/3 Ml Neb.Freya*) 2.5 mg INH Q4H PRN PRN Reason: SOB/WHEEZING Alprazolam (Xanax Tab*) 0.25 mg PO TID PRN PRN Reason: ANXIETY Apixaban (Eliquis*) 2.5 mg PO BID [facility] Last Admin: 07/12/18 08:11 Dose: 2.5 mg Atenolol (Tenormin Tab*) 25 mg PO QAM [facility] Last Admin: 07/12/18 08:11 Dose: 25 mg Atorvastatin Calcium (Lipitor*) 80 mg PO BEDTIME [facility] Last Admin: 07/11/18 21:56 Dose: 80 mg Bisacodyl (Dulcolax Supp*) 10 mg MO DAILY PRN PRN Reason: constipation Cyclobenzaprine HCl (Flexeril Tab*) 10 mg PO TID PRN PRN Reason: SPASMS Dextrose (D50w Syringe 50 Ml*) 12.5 gm IV PUSH .FOR FS < 60 - SS PRN PRN Reason: FS < 60 Diphenhydramine HCl (Benadryl Iv*) 12.5 mg IV Q6H PRN PRN Reason: PRURITIS Docusate Sodium (Colace Cap*) 100 mg PO BID [facility] Last Admin: 07/12/18 08:12 Dose: 100 mg Clindamycin HCl/Dextrose (Cleocin 600 Mg Ivpremix(*) Sdv) 600 mg in 50 mls @ 100 mls/hr IV Q8H [facility] Stop: 07/12/18 14:59 Last Admin: 07/12/18 06:14 Dose: 100 mls/hr Lactated Ringer's (Lactated Ringers 1000 Ml Bag*) 1,000 mls @ 100 mls/hr IV PER RATE [facility] Last Admin: 07/12/18 05:22 Dose: 100 mls/hr Insulin Human Lispro (Humalog*) 0 units [facility]; Protocol Last Admin: 07/12/18 08:12 Dose: 1 unit Lactulose (Lactulose*) 30 ml PO Q6H PRN PRN Reason: constipation Levothyroxine Sodium (Synthroid Tab*) 50 mcg PO QAM@0600 [facility] Last Admin: 07/12/18 06:13 Dose: 50 mcg Losartan Potassium (Cozaar Tab*) 50 mg PO BEDTIME [facility] Last Admin: 07/11/18 21:56 Dose: 50 mg Magnesium Hydroxide (Milk Of Magnesia Liq*) 30 ml PO BID [facility] Last Admin: 07/12/18 08:12 Dose: 30 ml Magnesium Hydroxide (Milk Of Magnesia Liq*) 30 ml PO Q6H PRN PRN Reason: constipation Montelukast Sodium (Singulair Tab*) 10 mg PO BEDTIME [facility] Last Admin: 07/11/18 21:57 Dose: 10 mg Morphine Sulfate (Morphine Vial*) 2 mg IV Q2H PRN PRN Reason: PAIN Last Admin: 07/12/18 01:21 Dose: 2 mg Ondansetron HCl (Zofran Inj*) 4 mg IV Q6H PRN PRN Reason: nausea Last Admin: 07/12/18 04:10 Dose: 4 mg Ondansetron HCl (Zofran Tab*) 4 mg PO Q6H PRN PRN Reason: NAUSEA Oxycodone HCl (Roxycodone Tab*) 10 mg PO Q4H PRN PRN Reason: SEVERE PAIN Last Admin: 07/12/18 06:13 Dose: 10 mg Oxycodone/Acetaminophen (Percocet 5/325 Tab*) 1 tab PO Q4H PRN PRN Reason: PAIN Oxycodone/Acetaminophen (Percocet 5/325 Tab*) 2 tab PO Q4H PRN PRN Reason: PAIN Last Admin: 07/12/18 08:12 Dose: 2 tab Polyethylene Glycol/Electrolytes (Miralax*) 17 gm PO DAILY PRN PRN Reason: Constipation Potassium Chloride (Klor Con Er Tab*) 10 meq PO QAM [facility] Last Admin: 07/12/18 08:13 Dose: 10 meq Fluticasone/Salmeterol (Advair Diskus 250-50*) 1 puff INH BID [facility] Last Admin: 07/12/18 08:15 Dose: 1 puff Sulfasalazine (Azulfidine Tab*) 500 mg PO BID [facility] Last Admin: 07/12/18 08:13 Dose: 500 mg Tramadol HCl (Ultram*) 50 mg PO Q6H PRN PRN Reason: PAIN Last Admin: 07/12/18 04:02 Dose: 50 mg Venlafaxine HCl (Effexor Cap (Nf)) 150 mg PO QAM [facility]; Protocol Last Admin: 07/12/18 08:13 Dose: 150 mg Vital Signs - 8 hr 07/12/18 07/12/18 07/12/18 01:21 02:13 03:59 Temperature 98.4 F Pulse Rate 64 Respiratory 16 16 17 Rate Blood Pressure 133/68 (mmHg) O2 Sat by Pulse 94 Oximetry 07/12/18 07/12/18 07/12/18 04:01 04:02 06:13 Temperature Pulse Rate Respiratory 16 16 16 Rate Blood Pressure (mmHg) O2 Sat by Pulse Oximetry 07/12/18 07/12/18 07/12/18 08:00 08:11 08:12 Temperature 98.1 F Pulse Rate 73 Respiratory 14 14 14 Rate Blood Pressure 139/63 (mmHg) O2 Sat by Pulse 91 91 Oximetry Oxygen Devices in Use Now: None Appearance: 68 yo F in nAD, AAOx3 Eyes: No Scleral Icterus, PERRLA Ears/Nose/Mouth/Throat: NL Teeth, Lips, Gums, Mucous Membranes Moist Neck: NL Appearance and Movements; NL JVP, Trachea Midline Respiratory: Symmetrical Chest Expansion and Respiratory Effort, Clear to Auscultation Cardiovascular: NL Sounds; No Murmurs; No JVD, RRR Abdominal: NL Sounds; No Tenderness; No Distention Lymphatic: No Cervical Adenopathy Extremities: No Clubbing, Cyanosis, - - trace R leg edema Skin: No Rash or Ulcers, No Nodules or Sclerosis, - - post op R knee covered with dressings and cry unit Neurological: Alert and Oriented x 3, NL Muscle Strength and Tone Result Diagrams: 07/12/18 05:19 07/12/18 05:19 Assess/Plan/Problems-Billing Assessment: 68 yo F with h/o DM, HTN, Asthma s/p elective right knee replacement - Patient Problems (1) Knee joint replacement status Comment: surgery on 07/11/18-as per ortho (2) DM2 (diabetes mellitus, type 2) (3) Asthma Comment: Not in exacerbation. PRN albuterol. Continue combination inhalers. (4) HTN (hypertension) Comment: Normotensive Continue Atenolol and Losartan (5) Hypothyroidism Comment: Continue levothyroxine (6) DVT prophylaxis Comment: apixaban Status and Disposition: Medicine consult, will follow prn
--- NOTE | 2018-07-12 11:43 | PN ---
Progress Note - Progress Note Date of Service: 07/12/18 SOAP: Subjective: []Patient seen OOB in chair. She is doing very well. Pain well managed. Wants to go home after PT session this afternoon. Objective: [] Vital Signs Temp 98.1 F 07/12/18 08:11 Pulse 73 07/12/18 08:11 Resp 16 07/12/18 10:24 BP 139/63 07/12/18 08:11 Pulse Ox 91 07/12/18 08:11 Intake & Output 07/11/18 07/12/18 07/12/18 18:59 06:59 18:59 Intake Total 2000 800 Output Total 550 850 Balance 1450 -50 Weight 186 lb Intake: IV Fluids 1999 LR 1999 Oral 800 Output: Dye 400 800 Emesis 50 Estimated Blood Loss 150 Laboratory Results - last 24 hr 07/11/18 07/11/18 07/12/18 12:57 20:15 05:19 WBC 7.6 RBC 3.69 L Hgb 10.9 L Hct 33 L MCV 90 MCH 30 MCHC 33 RDW 14 Plt Count 164 MPV 9.0 Neut % (Auto) 78.0 Lymph % (Auto) 11.7 [place] % (Auto) 8.4 Eos % (Auto) 1.7 Baso % (Auto) 0.2 Absolute Neuts (auto) 5.9 Absolute Lymphs (auto) 0.9 L Absolute Monos (auto) 0.6 Absolute Eos (auto) 0.1 Absolute Basos (auto) 0 Absolute Nucleated RBC 0 Nucleated RBC % 0 Sodium Potassium Chloride Carbon Dioxide Anion Gap BUN Creatinine Est GFR ( Amer) Est GFR (Non-Af Amer) BUN/Creatinine Ratio Glucose POC Glucose (mg/dL) 99 125 H Calcium 07/12/18 07/12/18 05:19 07:55 WBC RBC Hgb Hct MCV MCH MCHC RDW Plt Count MPV Neut % (Auto) Lymph % (Auto) Ventura % (Auto) Eos % (Auto) Baso % (Auto) Absolute Neuts (auto) Absolute Lymphs (auto) Absolute Monos (auto) Absolute Eos (auto) Absolute Basos (auto) Absolute Nucleated RBC Nucleated RBC % Sodium 139 Potassium 4.0 Chloride 106 Carbon Dioxide 29 Anion Gap 4 BUN 11 Creatinine 0.60 Est GFR ( Amer) 120.7 Est GFR (Non-Af Amer) 99.7 BUN/Creatinine Ratio 18.3 Glucose 134 H POC Glucose (mg/dL) 134 H Calcium 9.0 Left knee dressings changed, moderate bloody drainage on dressings, no active drainage from incision. No erythema. 4x4s and KARLA applied. calf NT and soft +DF left ankle sensation and circulation intact distally Assessment: [] Vital Signs Temp 98.1 F 07/12/18 08:11 Pulse 73 07/12/18 08:11 Resp 16 07/12/18 10:24 BP 139/63 07/12/18 08:11 Pulse Ox 91 07/12/18 08:11 Intake & Output 07/11/18 07/12/18 07/12/18 18:59 06:59 18:59 Intake Total 2000 800 Output Total 550 850 Balance 1450 -50 Weight 186 lb Intake: IV Fluids 1999 LR 2000 Oral 800 Output: Dye 400 800 Emesis 50 Estimated Blood Loss 150 07/12/18 07/12/18 05:19 07:55 WBC RBC Hgb Hct MCV MCH MCHC RDW Plt Count MPV Neut % (Auto) Lymph % (Auto) Ventura % (Auto) Eos % (Auto) Baso % (Auto) Absolute Neuts (auto) Absolute Lymphs (auto) Absolute Monos (auto) Absolute Eos (auto) Absolute Basos (auto) Absolute Nucleated RBC Nucleated RBC % Sodium 139 Potassium 4.0 Chloride 106 Carbon Dioxide 29 Anion Gap 4 BUN 11 Creatinine 0.60 Est GFR ( Amer) 120.7 Est GFR (Non-Af Amer) 99.7 BUN/Creatinine Ratio 18.3 Glucose 134 H POC Glucose (mg/dL) 134 H Calcium 9.0 Plan: []Home after PT session this afternoon Eliquis BID for 1 month post op Percocet for pain Outpatient PT- [facility]
--- NOTE | 2018-07-12 12:16 | OP ---
OPERATIVE REPORT: DATE OF OPERATION: 07/11/18 DATE OF : 52 ATTENDING SURGEON: Anastacia Zacarias MD [employer] MANAGER: RUIZ Wolfe Ms. did help throughout the procedure with preparation of the leg, wound retraction, manipul ation of the knee, and wound closure. ANESTHESIOLOGIST: Dr. Hoffman. ANESTHESIA: Spinal. PRE-OP DIAGNOSIS: Severe end-stage degenerative osteoarthritis of the right knee joint. POST-OP DIAGNOSIS: Severe end-stage degenerative osteoarthritis of the right knee joint. OPERATIVE PROCEDURE: Right total knee arthroplasty. TOURNIQUET TIME: 42 minutes. COMPLICATIONS: None. ESTIMATED BLOOD LOSS: 200 cc. SPECIMEN: Bone and cartilage from the right knee joint, sent to Pathology. HARDWARE: This is cemented total knee arthroplasty hardware from [employer]. For the femur, a size 5 narrow right posterior stabilized Legion femoral component. For the tibia, a size 3 right tibi al baseplate Belinda II. For the insert, a 9-mm posterior stabilized articular insert size 3-4 and f or the patella, a 32-mm 3-peg all-poly patella with 7.5 thickness. BRIEF HISTORY/INDICATIONS: Ms. Calderon is a 68-year-old female with acute on chronic right knee pain . She failed conservative treatment with antiinflammatories, physical therapy, pain medication, and intraarticular injection. Due to severe pain and decreased quality of life, she elected to undergo r ight total knee arthroplasty. Radiographs showed [id number] arthritis. Informed consent was obtain ed from the patient. She understands the risks of surgery include but are not limited to bleeding, i nfection, damage to nearby structures, continued pain, need for further surgery, intraoperative fract ure, nerve palsy, hardware failure or loosening, knee stiffness, loss of motion, stroke, heart attack , blood clot, and . The patient wishes to proceed. INTRAOPERATIVE FINDINGS: Intraoperatively, the patient was noted to have full thickness loss of cart ilage in all 3 compartments. DESCRIPTION OF PROCEDURE: Ms. Calderon was identified in the preanesthesia unit. Her right lower extr emity was marked as the correct operative side. Informed consent was signed and placed in the chart. The patient was taken to the operating room and placed under spinal anesthesia. A Dye catheter w as placed. Tourniquet was placed on the right thigh. Right lower extremity was prepped and draped i n the usual sterile fashion. Preop time-out was made to correctly identify the patient, side, and si te. Appropriate perioperative antibiotics were given within 1 hour of incision. The patient's tourn iquet was inflated and total tourniquet time for this procedure was 42 minutes. A midline incision w as made with 10-blade and carried down to the extensor mechanism. A new 10-blade was used to make a standard medial parapatellar arthrotomy. Patella was subluxed laterally. Electrocautery was used to subperiosteally elevate soft tissue off the superomedial tibia to the midsagittal plane. A drill wa s used to enter the distal femur. Intramedullary distal femoral cutting guide was pinned on the dist al femur. Oscillating saw was used to make the distal femoral cut. Next, the external rotation guid e was pinned on the distal femur. Distal femur was sized to a size 5. Size 5 multi-cutting jig was pinned on the distal femur. Oscillating saw was used to make the 4 chamfer cuts. Extramedullary tibial cutting guide was pinned on the proximal tibia. Oscillating saw was used to ma ke the proximal tibial cut perpendicular to the mechanical axis of the tibia. The bone was carefully removed. The knee was brought out into full extension. Spacer block had good fit with the knee in full extension. Medial and lateral ligaments were well balanced. Flexion and extension gaps were we ll balanced. The knee was flexed up. Laminar screen printing cloth spreader was placed both medially and laterally. Any r emaining meniscus was carefully removed using electrocautery. Curved osteotome was used to remove any posterior osteophytes. Tibial tray and drop keon were placed and confirmed a satisfactory tibial cut . A size 5 narrow right femoral trial was impacted onto the distal femur and had excellent fit and stab ility. The box for the posterior stabilized implant was prepared using a reamer and box cut osteotom e. Size 3 tibial tray trial with a 9- mm insert trial was placed and the knee was taken through a ra nge of motion. The knee had full extension to 130 degrees of flexion. Patella was everted. 7 mm of patellar bone a nd cartilage was removed using an oscillating saw. Patella was sized to a size 32. Three peg holes were drilled through the size 32 guide. A 32 trial patella was placed and the knee was taken through range of motion. There was satisfactory patellofemoral tracking. All trials were carefully removed . Tibia was subluxed anteriorly and sized to a size 3. Proximal tibia was prepared using a size 5 k eel punch. All bony cut surfaces were copiously irrigated with sterile saline and dried. Final impl ants were cemented into place starting with the tibia, followed by the femur and last the patella. A 9-mm insert trial was placed while the knee was brought out into full extension. Tourniquet was tur jadyn down at 42 minutes. The knee was copiously irrigated with sterile saline. Electrocautery was us ed to obtain meticulous hemostasis. Once the cement had fully cured, the insert was removed. Any excess cement was removed from around t he capsule and hardware. Final insert chosen was a 9-mm posterior stabilized articular insert, size 3-4. This was locked into position on the tibial tray. Stability of the insert was checked and rech ecked and noted to be stable. Extensor mechanism was closed using interrupted #1 Vicryl. The rest of the incision was closed in a layered fashion using 0 and 2-0 Vicryl. The skin was closed using running 3-0 nylon suture. Sterile Xeroform, 4x4, and Webril were used to cover the incision. Jez wrap and cold pack were placed over this. The patient's anesthesia was reversed without difficulty. She was taken to the PACU in stable condition. Intended weightbearing will be weightbearing as tolerated. [id number]/[facility] #: [id number]
[2018-07-12 12:24] VITALS: BP 153/77
--- NOTE | 2018-07-12 20:10 | DS ---
DISCHARGE SUMMARY: DATE OF ADMISSION: 07/11/18 DATE OF DISCHARGE: 07/12/18 ATTENDING PHYSICIAN: Anastacia Zacarias MD.* (DICTATED BY RUIZ LIN) ADMISSION DIAGNOSIS: Severe end-stage degenerative osteoarthritis of the right knee. DISCHARGE DIAGNOSIS: Severe end-stage degenerative osteoarthritis of the right knee. SURGERY PERFORMED: Right total knee arthroplasty. HOSPITAL COURSE: The patient is a 68-year-old female with acute on chronic right knee pain. She failed conservative management with antiinflammatories, physical therapy, pain medication, and intraarticular cortisone injections. Due to severe pain and decreased quality of life, she elected to proceed with total knee arthroplasty. She was taken to the operating room under the care of Dr. Anastacia Zacarias on 07/11/18. She tolerated the procedure well and left the operating room in stable condition. Postoperatively, she progressed very well with physical therapy and occupational therapy goals, bearing weight as tolerated on the right lower extremity. She had no postoperative medical or orthopedic complications. It was felt she was stable for discharge to home on the afternoon of 07/12/18. CONDITION ON DISCHARGE: Temperature 98.1, pulse 73, respiratory rate 14, O2 saturation 91% on room air, blood pressure 139/63. Her right knee incision is benign without erythema or active drainage. Her calf is nontender and soft. Her neurovascular status is intact. She has active dorsiflexion of the right ankle. PLAN: Discharge to home 07/12/18. She will continue to bear weight as tolerated on the right lower extremity and work on range of motion exercises with physical therapy. She will use Eliquis 2.5 mg p.o. b.i.d. for DVT prophylaxis and Percocet 5/325 one to two tablets p.o. q.4 hours p.r.n. pain, MDD 8, #56 tablets. We recommend a followup as scheduled in 10 to 14 days in the office with Dr. Zacarias. All questions were answered. RUIZ LIN [id number]/[facility] #: [id number] MTDD
== END 2018-07-12 14:40 | disposition home or self-care (01) | DRG 470 ==
LOC: AA 10:42 → SSU 18:15
PROVIDERS: ADMIT Orthopaedic Surgery Adult Reconstructive Orthopaedic Surgery; ATTEND Orthopaedic Surgery Adult Reconstructive Orthopaedic Surgery
PROC: 0SRC0J9 Replacement of Right Knee Joint with Synthetic Substitute, Cemented, Open Approach (ICD-10-PCS; principal; 2018-07-11 13:45)
DX: M17.11 Unilateral primary osteoarthritis, right knee (principal); L40.50 Arthropathic psoriasis, unspecified; I10 Essential (primary) hypertension; J45.909 Unspecified asthma, uncomplicated; G47.30 Sleep apnea, unspecified; E11.9 Type 2 diabetes mellitus without complications; K21.9 Gastro-esophageal reflux disease without esophagitis; M25.761 Osteophyte, right knee; E03.9 Hypothyroidism, unspecified; E78.5 Hyperlipidemia, unspecified; F15.90 Other stimulant use, unspecified, uncomplicated; E66.9 Obesity, unspecified; F41.9 Anxiety disorder, unspecified; M54.5 Low back pain; Z96.641 Presence of right artificial hip joint; Z79.84 Long term (current) use of oral hypoglycemic drugs; Z79.891 Long term (current) use of opiate analgesic; Z79.899 Other long term (current) drug therapy; Z88.0 Allergy status to penicillin; Z82.49 Family history of ischemic heart disease and other diseases of the circulatory system; Z82.3 Family history of stroke; Z83.3 Family history of diabetes mellitus; Z82.61 Family history of arthritis; Z87.891 Personal history of nicotine dependence; Z68.32 Body mass index [BMI] 32.0-32.9, adult
CPT/HCPCS: 36415; 80048; 85025; A9270-GY; C1776; G8978-GP-CJ; G8979-GP-CI; J1170; J1885; J2250; J2270; J2405; J2704; J2765; J2795; J3010

== ENCOUNTER 2018-11-02 14:22 | Emergency (ER) | payer OTHER ==
--- OUTSIDE RECORDS SUMMARY | 2018-11-02 14:28 | XMS REPORT | Continuity of Care Document ---
:1950 External Reference #:[id number] Author Name Mike Garibayen Care Team Providers Name Role Phone Jesus Alberto Robertson MD Primary Care Physician Unavailable Payers Date Identification Numbers Payment Provider Subscriber Policy Number: [id number] [employer] Number: [id number] [address] PayID: [id number] [place] [address] Problems Active Problems Provider Date Obstructive sleep apnea syndrome Linsey Canas M.D. Onset: 03/19/2013 Essential hypertension Linsey Canas M.D. Onset: 03/19/2013 Obesity Linsey Canas M.D. Onset: 03/19/2013 Palpitations Linsey Canas M.D. Onset: 03/19/2013 Neck pain Krishan Garcia MD Onset: 11/09/2016 Strain of muscle(s) and tendon(s) of the rotator Krishan Garcia MD Onset: cuff of left shoulder, subsequent encounter Localized, secondary osteoarthritis of the Krishan Garcia MD Onset: 11/09/2016 shoulder region Injury of shoulder region Krishan Garcia MD Onset: 11/09/2016 Localized, primary osteoarthritis of the pelvic Anastacia Zacarias M.D. Onset: region and thigh Localized, primary osteoarthritis Anastacia Zacarias M.D. Onset: 09/17/2017 Iliotibial band friction syndrome Anastacia Zacarias M.D. Onset: 06/17/2018 Arthroplasty of knee Anastacia Zacarias M.D. Onset: 08/26/2018 Family History Date Family Member(s) Observation Comments [...] Use Denies Drug Use Smoking Status Reviewed: 10/11/18 Patient is a former smoker Exercise Type/Frequency Exercises sporadically Allergies, Adverse Reactions, Alerts Active Allergies Reaction Severity Comments Date Penicillin 10/08/2012 Medications Active Medications SIG Qnty Indications Ordering Date Provider [place] 1-2 by mouth every 30tabs Anastacia Zacarias, 07/24/2018 5-325mg Tablets 4-6 hours as needed M.D. Reglan 1 tab po q6 hours 14tabs Anastacia Zacarias, 07/24/2018 10mg Tablets prn M.D. Ondansetron HCL 1 tab by mouth q6 14tabs Anastacia Zacarias, 07/23/2018 4mg hours as needed M.D. Tablets nausea Oxycodone-Acetaminop 1-2 tabs by mouth 70tabs Z96.651 Anastacia Zacarias, 2018 hen every 4-6 hours as M.D. 5-325mg Tablets needed for post op pain. s/p right tka, patient took this dose in hosp and tolerated well Folic Acid take one 90tabs Yohan Graves, 06/06/2018 1mg capsule/tablet M.D. Tablets daily by mouth [id number] take one 90units Yohan Graves, 05/01/2018 1mg capsule/tablet M.D. Chewtabs daily sublingually Sulfasalazine Take 2 tabs in the 500tabs Yohan Graves, 05/01/2018 500mg morning and 2 tabs M.D. Tablets in the evening for a total of 4 daily tabs daily ongoing Clindamycin HCL take 2 tablets 1 4caps Krishan Garcia, 01/10/2018 300mg hour prior to MD Capsules dental work Atenolol 1 by mouth every 90tabs Linsey Canas, 10/22/2012 25mg Tablets day M.D. Eliquis 1 tab by mouth Unknown 2.5mg Tablets every 12 hours for 30 days Ventolin HFA Unknown Atorvastatin Calcium 1 by mouth every Unknown day 80mg Tablets Oxycodone HCL 1 tab 8h as needed Unknown 10mg Tablets Advair Diskus inhale one puff by Unknown mouth twice a day 100-50mcg/Dose Aerosol Benadryl Allergy Unknown 25mg Capsules Levothyroxine Sodium 1 by mouth every Unknown day 50mcg Tablets Singulair 1 po qd 90tabs Unknown 10mg Tablets Metformin HCL ER 1 po qd 30tabs Unknown 500mg Tablets ER 24HR Effexor XR 1 po qd 30caps Unknown 225mg Caps ER 24HR Potassium Chloride 1 po qd 90tabs Unknown ER 10Meq Tablets ER Cozaar 1 po qd 30tabs Unknown 50mg Tablets History Medications Tramadol HCL 1 tablet by 60tabs M25.561 Anastacia Zacarias, 02/01/2018 - 50mg Tablets mouth every 6 M.D. 05/01/2018 hours as needed pain Cephalexin 1 by mouth four 28tabs Z47.1 Anastacia Zacarias, 12/17/2017 - 500mg Tablets times a day for M.D. 03/03/2018 7 days Nystatin apply to 15gm Anastacia Zacarias, 11/19/2017 - 264699Rdwe/GM Powder affected areas M.D. 06/27/2018 3 times a day as needed. Cyclobenzaprine HCL take 1 tab by 90tabs Anastacia Zacarias, 11/08/2017 - 10mg Tablets mouth 2-3 times M.D. 06/27/2018 a day as needed Colace 1 tab by mouth 90caps Anastacia Zacarias, 11/08/2017 - 100mg Capsules 2-3 times a day M.D. 03/03/2018 as needed Percocet 1-2 by mouth 60tabs Anastacia Zacarias, 11/08/2017 - 5-325mg Tablets every 8 hours M.D. 03/03/2018 as needed pain. ok to dispence generic Warfarin Sodium take 1-3 tabs 90tabs Anastacia Zacarias, 11/08/2017 - 2mg Tablets by mouth at 5pm M.DStacy 12/16/2017 nightly Hydrochlorothiazide 1 po qd 30tabs Unknown - 25mg Tablets 06/27/2018 Lipitor 1 po qhs 30tabs Unknown - 80mg Tablets 06/27/2018 Ambien 1 po qhs prn 30tabs Unknown - 10mg Tablets sleep insomnia 08/09/2017 Aspirin 1 po qd Unknown - 81mg Tablets 08/09/2017 Vitamin D once a week Unknown - 50,000mg 08/09/2017 Ventolin HFA 2 puffs bid 1units Unknown - 108(90Base) mcg/Act 08/09/2017 Aerosol Nasonex 2 sprays to 1units Unknown - 50mcg/Act Suspension each nostril 08/09/2017 twice daily Advair Diskus Unknown - 08/09/2017 Nitrostat one sl q5min up 25tabs Unknown - 0.4mg Tablets Sub to 3 doses prn 08/09/2017 Albuterol Sulfate Unknown - 08/09/2017 Medications Administered in Office Medication SIG Qnty Indications Ordering Provider Date Depomedrol 40MG Anastacia Zacarias M.D. 06/17/2018 Injection Depomedrol 40MG Anastacia Zacarias M.D. 09/17/2017 Injection Triamcinolone (Kenalog) Krishan Garcia MD 11/09/2016 Injection Technetium TC 99M Tetrofosmin, Per Linsey Canas M.D. 10/21/2012 Unit Dose Up To 40 Millicuries Injection Vital Signs Date Vital Result Comment 10/11/2018 10:31am Height 62 inches 5'2" Weight 171.00 lb Heart Rate 78 /min BP Systolic 108 mmHg BP Diastolic 68 mmHg Respiratory Rate 12 /min Pain Level 0 BMI (Body Mass Index) 31.3 kg/m2 08/26/2018 1:35pm Height 62 inches 5'2" Weight 180.00 lb BP Systolic 136 mmHg BP Diastolic 82 mmHg Body Temperature 99.1 F Pain Level 4 BMI (Body Mass Index) 32.9 kg/m2 07/23/2018 9:59am Height 63 inches 5'3" Weight 190.00 lb BP Systolic 128 mmHg BP Diastolic 76 mmHg Respiratory Rate 20 /min Body Temperature 98.8 F Pain Level 6 BMI (Body Mass Index) 33.7 kg/m2 06/28/2018 9:34am Height 63 inches 5'3" Weight [...] Date Facility Test Result H/L Range Note Xray 07/23/2018 [facility] Kneeright 4+ VWS <pending> [address] [place] [address] [phone] CBC Auto 06/28/2018 [facility] White Blood 6.8 10^3/uL N 3.5- 10.8 [address] [place] [address] [phone] Red Blood Count 4.29 10^6/uL N 4.00-5.40 [...] Cells % 0 Comp Metabolic Panel 06/28/2018 [facility] Sodium 140 mmol/L N 135-[address] [place] [address] [phone] Potassium 4.1 mmol/L N 3.5-5.0 Chloride 106 [...] Egfr 102.7 >60 2 Urinalysis Profile 06/28/2018 [facility] Urine Color Lurdes [address] [place] [address] [phone] Urine Appearance Cloudy Urine Specific [place] 1.026 N 1.010-1.030 Urine pH 5.0 N 5-9 Urine Urobilinogen Negative Negative Urine Ketones Negative Negative Urine Protein Negative Negative Urine Leukocytes Negative Negative Urine Blood Negative Negative Urine Nitrite Negative Negative Urine Bilirubin Negative Negative Urine Glucose Negative Negative Inr/Protime 06/28/2018 [facility] Inr 0.82 N 0.77-1.[address] [place] [address] [phone] Laboratory test 06/28/2018 [facility] Partial 24.5 seconds Low 26.0-36.3 [address] [place] [address] Time PTT [phone] Type & Screen 06/28/2018 [facility] Patient A Positive [address] [place] [address] [phone] Antibody Screen NEGATIVE Urine Culture And 06/28/2018 [facility] Urine Culture SEE RESULT [address] [place], [place] [id number] [phone] Comp Metabolic 06/04/2018 [facility] Sodium 139 mmol/L N 135- [address] [place], [place] [id number] [phone] Potassium 4.3 mmol/L N 3.5-5.0 Chloride 105 [...] 123.0 >60 5 CBC Auto Diff 06/04/2018 [facility] White Blood 6.1 10^3/uL N 3.5-10.[address] [place] [address] [phone] Red Blood Count 4.03 10^6/uL N 4.00-5.40 [...] Blood Cells % 0 Laboratory test 06/04/2018 [facility] C Reactive 2.79 mg/L N < 8.[address] [place] [address] [phone] Erythrocyte Sed Rate 38 mm/Hr N 0-40 7 Anca AB Ser If 04/23/2018 [facility] C-[place] [address] [phone] P-Anca Negative Negative 8 Hla B27 04/23/2018 [facility] Hla B27 Negative [address] [place] [address] [phone] Hla B27 Interp See Comment 10 Laboratory test 04/23/2018 [facility] TSH (Thyroid 0.57 mcIU/mL N 0.34-5.60 [address] Stim [place]) [place] [address] [phone] Vitamin B12 And 04/23/2018 [facility] Vitamin B12 298 pg/mL N 180-914 [address] [place] [address] [phone] Folic Acid (Folate) 14.57 ng/mL >3.99 13 Laboratory test 04/23/2018 [facility] Rheumatoid < 10 IU/mL N <15 [address] [place] [address] [phone] Nuclear AB (Amara) By Ifa Igg <1:80 (Negative) 15 Erythrocyte Sed Rate 38 mm/Hr N 0-40 16 C Reactive Protein 1.60 mg/L N <8.01 17 Magnesium 2.0 mg/dL N 1.9-2.7 18 Ssa/SSB Abs Igg 04/23/2018 [facility] SS-A/Ro Antibody <0.2 U [address] [facility] [place] [address] [phone] SS-B/La Antibody 0.3 U 20 Urinalysis Profile 10/29/2017 [facility] Urine Color Yellow [address] [place] [address] [phone] Urine Appearance Clear Urine Specific [place] 1.025 N 1.010-1.030 Urine pH 5.0 N 5-9 Urine Urobilinogen Negative Negative Urine Ketones Negative Negative Urine Protein Negative Negative Urine Leukocytes Negative Negative Urine Blood Negative Negative Urine Nitrite Negative Negative Urine Bilirubin Negative Negative Urine Glucose Negative Negative CBC Auto Diff 10/29/2017 [facility] White Blood 7.6 10^3/uL N 3.5-10.[address] [place] [address] [phone] Red Blood Count 4.37 10^6/uL N 4.00-5.40 [...] Red Blood Cells % 0.1 Inr/Protime 10/29/2017 [facility] Inr 0.79 N 0.77-1.[address] [place] [address] [phone] Laboratory test 10/29/2017 [facility] Partial 27.2 seconds N 26.0-36.[address] [place] [address] PTT [phone] Type & Screen 10/29/2017 [facility] Patient A Positive [address] [place] [address] [phone] Antibody Screen NEGATIVE Urine Culture And 10/29/2017 [facility] Urine Culture SEE RESULT [address] [place] [address] [phone] Laboratory test 10/23/2017 [facility] Vitamin D 29.7 ng/mL N 20-[address] Total 25(Oh) [place] [address] [phone] Hepatitis C Antibody Nonreactive Nonreactive Laboratory test 10/23/2017 [facility] Hemoglobin A1c 6.1 % High 4.0-5.[address] (Glyco HGB) [place] [address] [phone] Basic Metabolic 10/23/2017 [facility] Sodium 142 N 139-[address] mmol/[place] [address] [phone] Potassium 4.3 mmol/L N 3.5-5.0 Chloride 107 mmol/L N 101-111 Co2 Carbon Dioxide 31 mmol/L N 22-32 Anion Gap 4 mmol/L N 2-11 Glucose 100 mg/dL N 70-100 Blood Urea Nitrogen 16 mg/dL N 6-24 Creatinine 0.60 mg/dL N 0.51-0.95 BUN/Creatinine Ratio 26.7 High 8-20 Calcium 9.6 mg/dL N 8.6-10.3 Egfr Non- 100.0 >60 Egfr 128.6 >60 23 Laboratory 11/01/2012 [facility] Activated 25.9 22.18-37.18 test finding [address] [place] [address] Thrombo Time [phone] Inr/Protime 11/01/2012 [facility] Inr 0.82 Low 0.87-0.[address] [place] [address] [phone] Basic 11/01/2012 [facility] Sodium 142 mmol/L 133-[address] [place] [address] [phone] Potassium 3.6 mmol/L 3.5-5.0 Chloride 104 mmol/L 101-111 Co2 Carbon Dioxide 29.0 mmol/L 22-32 Anion Gap 9.0 mmol/L 2-11 Glucose 94 mg/dL 70-100 Blood Urea Nitrogen 19 mg/dL 6-24 Creatinine 0.80 mg/dL 0.50-1.40 BUN/Creatinine Ratio 23.8 High 8-20 Calcium 10.0 mg/dL High 8.1-9.9 Egfr Non- 72.9 >60 Egfr 93.8 >60 24 CBC No Diff 11/01/2012 [facility] White Blood 9.2 10^3/uL 4.8 -10.[address] [place] [address] [phone] Red Blood Count 4.41 10^6/uL 4.0-5.4 Hemoglobin 12.8 g/dL 12.0-16.0 Hematocrit 39 % 35-47 Mean Corpuscular Volume 89 fL 80-97 Mean Corpuscular Hemoglobin 29 pg 27-31 Mean Corpuscular HGB Conc 33 g/dL 31-36 Red Cell Distribution Width 14 % 10.5-15 Platelet Count 235 10^3/uL 150-450 Mean Platelet Volume 10 um3 7.4-10.4 1 AA 07/11 2 Because ethnic data is not [...] [address]: Anastacia Zacarias MD Acct: [id number] Unit: [id number] AGE: 68 Location: [facility] Re06/28/18 SEX: F Status: REG REF SPEC: [id number] KARINA: 06/28/18-1245 [facility] DR: Anastacia Zacarias MD REQ: [id number] RECD: 06/28/187995 STATUS: SAMIR OLIVERA DR: Jesus Alberto Robertson MD _ SOURCE: URINE SPDESC: ORDERED: Urine Culture COMMENTS: 07/11 QUERIES: Urine Source: Clean Catch Procedure Result Reported Site Urine Culture Final 06/29/18- 1210 ML No Growth (<1,000 CFU/mL) * ML - Main Lab . END OF REPORT DEPARTMENT OF PATHOLOGY, [address] [place] [address] Jaciel Terrazas M.D. Director [facility] # [id number] 5 Because ethnic data is not always [...] labs 2 days before follow up 8 Negative for cANCA and pANCA patterns by immunofluorescence. ADDITIONAL INFORMATION This test was developed and its performance characteristics determined by [facility] in a manner consistent with CLIA requirements. This test has not been cleared or approved by the U.S. Food and Drug Administration. Test Performed by: [facility] [address] [id number] 9 REFERENCE VALUE Not Applicable 10 RESULT: HLA-B27 antigen was not detected. ADDITIONAL INFORMATION Method: Flow Cytometry Performing Laboratory CLIA# [id number] Test Performed by: [facility] [place] [id number] Please check labs this week 12 Normal Range 180 to 914 Indeterminate Range 145 to 180 Deficient Range <145 13 Please check labs this week 14 Please check labs this week 15 <1:80 (Negative) REFERENCE VALUE <1:80 (Negative) Test Performed by: [facility] [address] [address] 16 Please check labs this week 17 Please check labs this week 18 Please check labs this week 19 REFERENCE VALUE <1.0 (Negative) 20 REFERENCE VALUE <1.0 (Negative) Test Performed by: [facility] [address] [place] [address] 21 SEE RESULT BELOW Name: MARILIA NORIEGA : [address]: Anastacia Zacarias MD Acct: [id number] Unit: [id number] AGE: 67 Location: [facility] Re10/29/17 SEX: F Status: REG REF SPEC: [id number] KARINA: 10/29/17 [facility] DR: Anastacia Zacarias MD REQ: [id number] RECD: 10/29/17-1216 STATUS: SAMIR OLIVERA DR: Jesus Alberto Robertson MD _ SOURCE: URINE SPDESC: ORDERED: Urine Culture QUERIES: Urine Source: Clean Catch Procedure Result Reported Site Urine Culture Final 10/30/17- 1217 ML No growth of clinically significant organisms * ML - Main Lab . END OF REPORT DEPARTMENT OF PATHOLOGY, [address] [place] [address] Jaciel Terrazas M.D. Director [facility] # [id number] 22 Therapeutic target for the treatment of diabetes mellitus patients is <7% HBA1C, and in selective patients <6.0%. Please refer to [place] [employer] diabetic care guidelines for further [...] (or dialysis) Procedures Date Code Description Status 07/11/2018 65004 TKR Total Knee Replacement Completed 07/11/2018 21914 TKR Total Knee Replacement Completed 07/11/2018 23574 TKR Total Knee Replacement Completed 06/17/2018 39701 Inject/Drain Joint/Bursa Major W/O US Completed 01/08/2018 86220 Removal Devitalization Tissue Wound Less Than Equal 20 Completed Square CM 01/01/2018 06333 Removal Devitalization Tissue Wound Less Than Equal 20 Completed Square CM 12/25/2017 26975 Removal Devitalization Tissue Wound Less Than Equal 20 Completed Square CM 11/06/2017 09417 THR Total Hip Replacement Completed 11/06/2017 93358 THR Total Hip Replacement Completed 11/06/2017 25276 THR Total Hip Replacement Completed 09/17/2017 32964 Inject/Drain Joint/Bursa Major W/O US Completed 11/09/2016 93900 Inject/Drain Joint/Bursa Major W/O US Completed 07/10/2013 21069 Polysomnography Sleep Staging 4+ Parameters Completed 03/19/2013 58593 EKG Tracing & Interpretation Completed 11/15/2012 55032 ECHO Transthoracic, Real-Time 2D With Doppler And Color Completed Flow 11/05/2012 80093 Left Heart Cath. Incl S/I Coronaries, Angio S/I V Gram If Completed Done 10/21/2012 83669 Stress Test Completed 10/21/2012 81940 Myocardial Perfusion Imaging Tomographic (Spect) Multiple Completed Studies 10/08/2012 50151 EKG Tracing & Interpretation Completed Encounters Type Date Location Provider Dx Diagnosis Office Visit 07/12/2018 [facility] Verito Raphael, E11.9 Type 2 diabetes 11:06a Assoc,pc M.D. mellitus without Hospitalists complications I10 Essential (primary) hypertension J45.909 Unspecified asthma, uncomplicated Z96.651 Presence of right artificial knee joint Office Visit 07/11/2018 [facility] Verito Raphael, E11.9 Type 2 diabetes 11:05a Assty maldonado M.D. mellitus without Hospitalists complications I10 Essential (primary) hypertension J45.909 Unspecified asthma, uncomplicated Z96.651 Presence of right artificial knee joint Office Visit 06/17/2018 1:30p [facility] Anastacia Zacarias, M25.561 Pain in right Of C.M.A. M.D. 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 interphalangeal psoriatic arthropathy G62.9 Polyneuropathy, unspecified Z79.899 Other senior living (current) drug therapy E53.8 Deficiency of other specified B group vitamins Office Visit 05/01/2018 Rheumatology Yohan L40.51 Distal 8:00a Services Of Amy Graves M.D. 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 M.D. [...] Alberto Marcus T81.31xD Disruption of Center AT [facility] Ashley Alvarez external operation (surgical) wound, NEC, subs E11.9 Type 2 diabetes mellitus without complications I10 Essential (primary) hypertension Office Visit 12/25/2017 9:30a Wound Care Jesus Alberto Marcus T81.31xA Disruption of Center AT [facility] Ashley Alvarez external operation (surgical) wound, NEC, init E11.622 Type 2 diabetes mellitus with other skin ulcer I10 Essential (primary) hypertension E78.5 Hyperlipidemia, unspecified E03.9 Hypothyroidism, unspecified Office Visit 11/07/2017 9:55a [facility] Mic Z47.1 Aftercare Assoc,RUIZ [place] following joint Hospitalists replacement surgery Z96.641 Presence of right artificial hip joint M16.11 Unilateral primary osteoarthritis, right hip M25.551 Pain in right hip Office Visit 11/06/2017 [facility] Arden Ingram Z47.1 Aftercare 2:53p Assty [...] knee Office Visit 08/10/2017 9:30a Orthopedic Services Anastaciavalerie Zcaarias, M25.551 Pain in right Of C.M.A. M.D. 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 vomiting, Hospitalists unspecified E83.42 Hypomagnesemia I10 Essential (primary) hypertension E78.5 Hyperlipidemia, unspecified Office Visit 07/18/2017 [facility] Chelsea R11.2 Nausea with 3:19p Assoc,pc Ata, HELP DESK SUPPORT SPECIALIST vomiting, Hospitalists unspecified E83.42 Hypomagnesemia I10 Essential (primary) hypertension E78.5 Hyperlipidemia, unspecified Office Visit 11/09/2016 2:30p Orthopedic Zaneb Jose, S46.012D Strain of Services Of MD claudine/tend [...] Respiratory Abnormalities Other Office Visit 03/19/2013 8:45a [facility] Linsey Canas, 327.23 Obstructive Sleep Of [facility] M.D. Apnea Adult & Pediatric 401.9 Hypertension Unspec 278.00 Obesity Unspec 785.1 Palpitations Office Visit 11/13/2012 [place] Linsey Canas, 427.0 PSVT Paroxysmal 2:45p Cardiology [facility].DStacy Supraventricular [facility] Tachycardia 785.1 Palpitations 401.9 Hypertension Unspec Office Visit 11/01/2012 1:45p [facility] Linsey Canas, 786.50 Pain Chest Of Travel Registered Nurse Oncology AT [facility] M.D. Unspec 427.0 PSVT Paroxysmal Supraventricular Tachycardia 785.1 Palpitations 401.9 Hypertension Unspec Office Visit 10/08/2012 9:45a [facility] Linsey Canas 786.50 Pain Chest Of [facility] M.D. Unspec 786.09 Dyspnea & Respiratory Abnormalities Other 272.0 Hypercholesterolemia Pure 278.00 Obesity Unspec Plan of Treatment Future Appointment(s):11/04/2018 10:15 am - Anastacia Zacarias M.D. at [facility]/11/2018 9:20 am - Yohan Graves M.D. at Rheumatology Services Of [facility]10/11/2018 - Anastacia Zacarias M.D.Z47.1 Aftercare following joint replacement surgeryFollow up:Follow up: As vtpntyI16.651 Presence of right artificial knee jljqnT69.561 Pain in right knee
[2018-11-02] MEDS ORDERED: NS 0.9% 1000 ML** 1,000 ML IV ONE (15:06)
--- NOTE | 2018-11-02 15:06 | UC ---
General HPI - HPI Summary HPI Summary: 2 DAYS AGO PT ATE AT [facility]. SHORTLY AFTER DEVELOPED COPIOUS WATERY DIARRHEA AND NAUSEA/VOMITING. DIARRHEA STOPPED THAT EVENING BUT VOMITING HAS PERSISTED. PT ARRIVES ATSTING SHE HASN'T EATEN ANYTHING FOR THE PAST 2 DAYS. ONLY SMALL SIPS OF FLUIDS. IS PRODUCING VERY LITTLE PEE. TEMP ELEVATED ABOUT 100. FEELS OVERALL WEAK AND UNWELL. HAS H/O DIABETES. DOES NOT CHECK HER GLUCOSE AT HOME. - History of Current Complaint Chief Complaint: UCGI Stated Complaint: VOMITING FEVER URINARY ISSUE Time Seen by Provider: 11/02/18 14:40 Hx Obtained From: Patient, Family/Intelligence Specialist - Hx Last Menstrual Period: Years ago. Onset/Duration: Sudden Onset, Lasting Days, Still Present Timing: Constant Onset Severity: Moderate Current Severity: Moderate Pain Intensity: 6 - Allergy/Home Medications Allergies/Adverse Reactions: Allergies Allergy/AdvReac Type Severity Reaction Status Date / Time niacin Allergy Severe Flushing Verified 11/02/18 15:53 Penicillins Allergy Unknown Rash Verified 11/02/18 15:53 PMH/Surg Hx/FS Hx/Imm Hx Endocrine History: Diabetes, Hypothyroidism Respiratory History: Asthma Other History Of: Negative For: HIV, Hepatitis B, Hepatitis C, Anticoagulant Therapy - Surgical History Surgical History: Yes Surgery Procedure, Year, and Place: TONSILS, ARTHRO LT KNEE , RT KNEE , CATARACTS 2010,. Heart Cath in October 2012, no blockage. BOTOX FOR ANAL FISSURE-2015. right total hip replacement 2017. Right total knee replacement 2019 - Family History Known Family History: Positive: Cardiac Disease - Positive CAD to father. Afib to mother, Hypertension, Diabetes - Social History Alcohol Use: None Alcohol Amount: 2 Substance Use Type: None Substance Use Comment - Amount & Last Used: for pain Smoking Status (MU): Never Smoked Tobacco Type: Cigarettes Amount Used/How Often: social Length of Time of Smoking/Using Tobacco: 30 years Have You Smoked in the Last Year: No When Did the Patient Quit Smoking/Using Tobacco: 1989 - Immunization History Most Recent Influenza Vaccination: February 2018 Most Recent Pneumonia Vaccination: 2016 Review of Systems All Other Systems Reviewed And Are Negative: Yes Constitutional: Positive: Fever, Fatigue ENT: Positive: Negative Respiratory: Positive: Cough, Other - WHEEZE Cardiovascular: Positive: Negative Gastrointestinal: Positive: Abdominal Pain, Vomiting, Diarrhea, Nausea Genitourinary: Positive: Other - OLIGURIA Physical Exam Triage Information Reviewed: Yes Appearance: No Pain Distress, Ill-Appearing - FATIGUED, PALE Vital Signs: Initial Vital Signs Temp 99.5 F 11/02/18 14:27 Pulse 61 11/02/18 14:27 Resp 20 11/02/18 14:27 BP 139/90 11/02/18 14:27 Pulse Ox 100 11/02/18 14:27 Laboratory Tests 11/02/18 14:46 POC Glucose (mg/dL) 120 H Vital Signs Reviewed: Yes Eyes: Positive: Conjunctiva Clear ENT: Positive: Hearing grossly normal Neck: Positive: Supple Respiratory: Positive: No respiratory distress, No accessory muscle use, Other: - COARSE BREATH SOUNDS DIFFUSELY Cardiovascular Exam: Normal Abdomen Description: Positive: Soft Musculoskeletal: Positive: No Edema Neurological: Positive: Alert Psychological: Positive: Age Appropriate Behavior Skin: Negative: Rashes Course/Dx - Course Course Of Treatment: TO [facility]BULANCE. - Diagnoses Provider Diagnosis: Nausea & vomiting, Dehydration - Physician Notifications Discussed Patient Care With: Patrick Yates - TO [facility] Time Discussed With Above Provider: 15:00 Instructed by Provider To: MD Will See In ED Discharge - Sign-Out/Discharge Documenting (check all that apply): Patient Departure All imaging exams completed and their final reports reviewed: No Studies - Discharge Plan Condition: Stable Disposition: TRANS HIGHER LVL OF CARE FAC Referrals: Jesus Alberto Robertson MD [Primary Care Provider] - - Billing Disposition and Condition Condition: STABLE Disposition: Trans Higher Lvl of Care Fac
[2018-11-02 15:09] VITALS: BP 129/79
[2018-11-02] MEDS ORDERED: Ondansetron INJ* 2 MG/ML VIAL IV ONE (15:09)
== END 2018-11-02 15:13 | disposition short-term general hospital (02) ==
LOC: UCEAST 14:22
DX: R11.2 Nausea with vomiting, unspecified (principal); E86.0 Dehydration; E11.9 Type 2 diabetes mellitus without complications
CPT/HCPCS: 96360; 96374; 99213; G0463; J2405

== ENCOUNTER 2018-11-02 15:38 | Emergency (ER) | payer OTHER ==
[2018-11-02] MEDS ORDERED: Ondansetron INJ* 2 MG/ML VIAL IV ONE (15:45)
--- NOTE | 2018-11-02 15:54 | ED ---
Complex/Multi-Sys Presentation - HPI Summary HPI Summary: 68 year old F brought in by [facility] from [facility] to [facility] with a chief complaint of nausea and vomiting since eating dinner 2 days ago. Symptoms aggravated by nothing. Symptoms alleviated by nothing. Patient reports lower abdominal pain and right knee pain. She reports fever and chills. Patient denies diarrhea. Patient ate pizza and nachos 3 days ago on Sunday for dinner. 1.5 hours later, patient had nausea, vomiting, and diarrhea until 02:00 on . Patient called her doctor who advised her to drink only liquids but patient still had nausea and vomiting. Patient has had hip and knee replacements in the last year per EMS. - History Of Current Complaint Hx Obtained From: Patient, EMS Onset/Duration: Sudden Onset, Lasting Days - 2, Still Present Timing: Constant Aggravating Factor(s): Nothing Alleviating Factor(s): Nothing Associated Signs And Symptoms: Positive: Other - lower abdominal pain and right knee pain, fever and chills; NEGATIVE: diarrhea - Allergies/Home Medications Allergies/Adverse Reactions: Allergies Allergy/AdvReac Type Severity Reaction Status Date / Time niacin Allergy Severe Flushing Verified 11/02/18 15:53 Penicillins Allergy Unknown Rash Verified 11/02/18 15:53 Home Medications: Home Medications Docusate CAP* [Colace Cap*] 100 mg PO BID PRN 11/02/18 [History Confirmed ] PMH/Surg Hx/FS Hx/Imm Hx Previously Healthy: No Endocrine/Hematology History: Reports: Hx Diabetes, Hx Anemia - was told by Dr. Graves, Other Endocrine/Hematological Disorders - PARATOID GLAND CYST? Denies: Hx Anticoagulant Therapy, Hx Thyroid Disease Cardiovascular History: Reports: Hx Hypercholesterolemia, Hx Hypertension, Other Cardiovascular Problems/Disorders - hyperlipidemia Denies: Hx Congestive Heart Failure, Hx Deep Vein Thrombosis, Hx Myocardial Infarction, Hx Pacemaker/ICD Respiratory History: Reports: Hx Asthma, Hx Seasonal Allergies, Hx Sleep Apnea - DIAGNOSED 25 YEARS AGO- UNSURE IF STILL HAS- has lost weight Denies: Hx Chronic Obstructive Pulmonary Disease (COPD), Hx Lung Cancer, Hx Pneumonia, Hx Pulmonary Embolism GI History: Reports: Hx Gastroesophageal Reflux Disease - prn tums, Hx Irritable Bowel, Other GI Disorders - anal fissure with pelvic floor dysfunction - resolved Denies: Hx Gall Bladder Disease, Hx Gastrointestinal Bleed, Hx Ulcer, Hx Urosepsis History: Reports: Other Problems/Disorders - reports pelvic floor dysfunction after botox injection for anal fissure Denies: Hx Kidney Stones, Hx Renal Disease Musculoskeletal History: Reports: Hx Arthritis - degenerative, psoriatric, Hx Back Problems, Hx Scoliosis - SLIGHT, Hx Tendonitis - left shoulder, Other Musculoskeletal History - obesity Sensory History: Reports: Hx Cataracts, Hx Contacts or Glasses - GLASSES, Hx Glaucoma Denies: Hx Hearing Aid Opthamlomology History: Reports: Hx Cataracts, Hx Contacts or Glasses - GLASSES , Hx Glaucoma Neurological History: Reports: Other Neuro Impairments/Disorders - PAIN CLINIC patient Denies: Hx Dementia, Hx Migraine, Hx Seizures, Hx Transient Ischemic Attacks (TIA) Psychiatric History: Reports: Hx Anxiety - PRN MEDICATION FOR, Hx Depression Denies: Hx Panic Disorder, Hx Schizophrenia, Hx Bipolar Disorder - Cancer History Hx Chemotherapy: No Hx Radiation Therapy: No - Surgical History Surgery Procedure, Year, and Place: TONSILS, ARTHRO LT KNEE , RT KNEE , CATARACTS 2010,. Heart Cath in October 2012, no blockage. BOTOX FOR ANAL FISSURE-2015. right total hip replacement 2018. Right total knee replacement 2019 Hx Anesthesia Reactions: Yes - woke up during both knee scoping and botox Infectious Disease History: Denies: Hx Clostridium Difficile - Family History Known Family History: Positive: Cardiac Disease - Positive CAD to father. Afib to mother, Hypertension, Diabetes - Social History Alcohol Use: Rare Hx Substance Use: Yes Substance Use Comment - Amount & Last Used: for pain Hx Tobacco Use: Yes Smoking Status (MU): Former Smoker Type: Cigarettes Amount Used/How Often: social Length of Time of Smoking/Using Tobacco: 30 years Have You Smoked in the Last Year: No Review of Systems Positive: Fever, Chills Positive: Abdominal Pain, Vomiting, Nausea. Negative: Diarrhea Positive: Other - right knee pain All Other Systems Reviewed And Are Negative: Yes Physical Exam - Summary Physical Exam Summary: VITAL SIGNS: Reviewed. GENERAL: Patient is a well-developed and nourished FEMALE who is lying comfortable in the stretcher. Patient is not in any acute respiratory distress. HEAD AND FACE: No signs of trauma. No ecchymosis, hematomas or skull depressions. No sinus tenderness. EYES: PERRLA, EOMI x 2, No injected conjunctiva, no nystagmus. EARS: Hearing grossly intact. Ear canals and tympanic membranes are within normal limits. MOUTH: Dry oral mucosa NECK: Supple, trachea is midline, no adenopathy, no JVD, no carotid bruit, no c- spine tenderness, neck with full ROM. CHEST: Symmetric, no tenderness at palpation LUNGS: Clear to auscultation bilaterally. No wheezing or crackles. CVS: Regular rate and rhythm, S1 and S2 present, no murmurs or gallops appreciated. ABDOMEN: Soft, non-tender. No signs of distention. No rebound no guarding, and no masses palpated. Bowel sounds are normal. EXTREMITIES: FROM in all major joints, no edema, no cyanosis or clubbing. NEURO: Alert and oriented x 3. No acute neurological deficits. Speech is normal and follows commands. SKIN: Dry and warm Triage Information Reviewed: Yes Vital Signs Reviewed: Yes Diagnostics - Laboratory Result Diagrams: 11/02/18 15:56 11/02/18 15:56 Lab Statement: Any lab studies that have been ordered have been reviewed, and results considered in the medical decision making process. - Radiology Abdomen x-ray Radiology Interpretation Completed By: Radiologist Summary of Radiographic Findings: 1. No abdominal pelvic pathologic process evident. ED physician has reviewed this report. Re-Evaluation - Re-Evaluation First Eval Re-Evaluation Time: 18:46 Comment: Discussed discharge plan. Patient is agreeable. Complex Multi-Symp Course/Dx Assessment/Plan: 68 year old F brought in by [facility] from [facility] to [facility] with a chief complaint of nausea and vomiting since eating dinner 2 days ago. Symptoms aggravated by nothing. Symptoms alleviated by nothing. Patient reports lower abdominal pain and right knee pain. She reports fever and chills. Patient denies diarrhea. Patient ate pizza and nachos 3 days ago on Sunday for dinner. 1.5 hours later, patient had nausea, vomiting, and diarrhea until 02:00 on . Patient called her doctor who advised her to drink only liquids but patient still had nausea and vomiting. Patient has had hip and knee replacements in the last year per EMS. Blood work without any significant metabolic except for WBCs of 11.5, sodium 134, glucose 103, and urinalysis negative for UTI. Abdomen x-ray impression: No abdominal pelvic pathology process evident. In the ED course, the patient was given IV fluids, Zofran for nausea and vomiting and the patient reports that she is feeling better. I discussed all the findings and test results with the patient. Patient was instructed to return to the emergency room immediately if any of the symptoms return worsens. Plan of care was discussed with the patient and she understands and agrees. All questions were answered at patient satisfaction. There were no further complaints or concerns. Lung exam before discharge: CTA B/L. Good air exchange. No wheezing or crackles heard. CVS: S1 and S2 present. No murmurs appreciated. Patient is alert and oriented x 3. Patient is hemodynamically stable. Patient will be discharged home with follow up PCP in the next 2-3 days - Diagnoses Provider Diagnoses: Nausea & vomiting Discharge - Sign-Out/Discharge Documenting (check all that apply): Patient Departure - Discharge Patient Received Moderate/Deep Sedation with Procedure: No - Discharge Plan Condition: Stable Disposition: HOME Prescriptions: Ondansetron ODT TAB* [Zofran 4 MG Odt TAB*] 4 mg PO Q8H PRN #12 tab.odt PRN Reason: Vomiting Patient Education Materials: Acute Nausea and Vomiting (ED) Referrals: Jesus Alberto Robertson MD [Primary Care Provider] - 3 Days Additional Instructions: Follow up with your primary care provider in 3 days. Return to the Emergency Department for new or worsening symptoms. - Billing Disposition and Condition Condition: STABLE Disposition: Home - Attestation Statements Document Initiated by Maribeth: Yes Documenting Scribe: Elise Pizano Provider For Whom Maribeth is Documenting (Include Credential): Wilmer Lopez MD Scribe Attestation: IElise, scribed for Wilmer Lopez MD on 11/02/18 at 1913. Scribe Documentation Reviewed: Yes Provider Attestation: The documentation as recorded by the Elise gonzalez accurately reflects the service I personally performed and the decisions made by me, Wilmer Lopez MD Status of Scribe Document: Viewed
[2018-11-02 16:11] LABS: ABS Basophils 0.1 10^3/ul (0-0.2); ABS Lymphocytes 1.6 10^3/ul (1.0-4.8); ABS Monocytes 0.5 10^3/ul (0-0.8); ABS Neutrophils 9.3 10^3/ul (1.5-7.7); Hematocrit 39 % (35-47); Hemoglobin 12.9 g/dL (12.0-16.0); Mean Corpuscular HGB Conc 33 g/dL (31-36); Mean Corpuscular Hemoglobin 28 pg (27-31); Mean Corpuscular Volume 85 fL (80-97); Mean Platelet Volume 9.1 fL (7.4-10.4); Platelet Count 260 10^3/uL (150-450); Red Blood Count 4.58 10^6 /uL (3.70-4.87); Red Cell Distribution Width 14 % (10-15); White Blood Count 11.5 10^3/uL (3.5-10.8)
[2018-11-02] MEDS: NS 0.9% 1000 ML** 2,000 ML IV ONE (16:13)
[2018-11-02 16:22] LABS: ALT 10 U/L (7-52); AST 14 U/L (13-39); Albumin 4.1 g/dL (3.2-5.2); Albumin/Globulin Ratio 1.3 (1-3); Alkaline Phosphatase 81 U/L (34-104); Anion Gap 8 mmol/L (2-11); BUN/Creatinine Ratio 22.9 (8-20); Blood Urea Nitrogen 16 mg/dL (6-24); C Reactive Protein 1.82 mg/L (<8.01); CO2 Carbon Dioxide 25 mmol/L (22-32); Calcium 9.8 mg/dL (8.6-10.3); Chloride 101 mmol/L (101-111); Creatine Kinase 91 U/L (10-223); EGFR Non-African American 83.5 (>60); Globulin 3.1 g/dL (2-4); Glucose 103 mg/dL (70-100); Potassium 3.5 mmol/L (3.5-5.0); Sodium 134 mmol/L (135-145); Total Protein 7.2 g/dL (6.4-8.9)
[2018-11-02 17:27] LABS: Urine Appearance Clear; Urine Bacteria 1+ (Absent); Urine Bilirubin Negative (Negative); Urine Blood 1+ (Negative); Urine Color Straw; Urine Glucose Negative (Negative); Urine Ketones Trace (Negative); Urine Nitrite Negative (Negative); Urine Protein Negative (Negative); Urine Red Blood Cell Trace(0-2/hpf) (Absent); Urine Specific Gravity 1.003 (1.010-1.030); Urine Squamous Epithelial Cell Present (Absent); Urine Urobilinogen Negative (Negative); Urine White Blood Cell Trace(0-5/hpf) (Absent)
[2018-11-02] MEDS ORDERED: Ondansetron ODT TAB* 4 MG SL ONE (18:58)
[2018-11-02 19:04] VITALS: BP 177/85
== END 2018-11-02 19:03 | disposition home or self-care (01) ==
LOC: ED 15:38
DX: R11.2 Nausea with vomiting, unspecified (principal); E11.9 Type 2 diabetes mellitus without complications; I10 Essential (primary) hypertension; Z87.891 Personal history of nicotine dependence
CPT/HCPCS: 36415; 74019; 80053; 81003; 81015; 82550; 83605; 83690; 85025; 86140; 87086; 96361; 96374; 99284; A9270-GY; J2405

== ENCOUNTER 2019-07-05 13:03 | Emergency (ER) | payer MEDICARE ==
[2019-07-05 13:21] VITALS: BP 149/87
--- NOTE | 2019-07-05 13:30 | UC ---
Throat Pain/Nasal Ronal HPI - HPI Summary HPI Summary: The patient is a 69-year-old female with the onset last night of sore throat. She has noticed some swollen glands. She states that she has a history of asthma. She has had increased wheezing with this. She has a nebulizer at home. - History of Current Complaint Chief Complaint: UCGeneralIllness Stated Complaint: THROAT PAIN Time Seen by Provider: 07/05/19 13:23 Hx Obtained From: Patient Hx Last Menstrual Period: Years ago. Onset/Duration: Gradual Onset, Lasting Hours - Wallpapering or Is not better. Pain Intensity: 4 Pain Scale Used: 0-10 Numeric Associated Signs & Symptoms: Positive: Wheezing - Allergies/Home Medications Allergies/Adverse Reactions: Allergies Allergy/AdvReac Type Severity Reaction Status Date / Time niacin Allergy Severe Flushing Verified 07/05/19 13:13 Penicillins Allergy Unknown Rash Verified 07/05/19 13:13 Home Medications: Home Medications Atorvastatin* [Lipitor 80 MG*] 80 mg PO BEDTIME 08/01/12 [History Confirmed ] Fluticasone-Salmeterol 250-50* [Advair Diskus 250-50*] 1 puff INH BID 08/01/12 [ History Confirmed 07/05/19] Losartan TAB* [Cozaar TAB*] 50 mg PO BEDTIME 08/01/12 [History Confirmed ] Montelukast Sodium TAB* [Singulair 10 MG TAB*] 10 mg PO BEDTIME 08/01/12 [ History Confirmed 07/05/19] metFORMIN* [Glucophage 500 MG TAB *] 500 mg PO QAM 08/01/12 [History Confirmed 07/05/19] Potassium Chlor Tab* [K Dur Tab*] 10 meq PO QAM 10/11/12 [History Confirmed ] Atenolol TAB* [Tenormin TAB* 25 MG] 25 mg PO QAM 06/21/17 [History Confirmed ] Cholecalciferol TAB* [Vitamin D TAB*] 2,000 units PO QAM 06/21/17 [History Confirmed 07/05/19] ALPRAZolam TAB* [Xanax TAB*] 0.25 mg PO TID PRN 07/18/17 [History Confirmed ] Albuterol HFA INHALER* [Ventolin HFA Inhaler*] 2 puff INH BID PRN 07/18/17 [ History Confirmed 07/05/19] Levothyroxine TAB* [Synthroid TAB*] 50 mcg PO QAM 07/18/17 [History Confirmed ] Mometasone NASAL (NF) [Nasonex (NF)] 1 spray INH QAM 07/18/17 [History Confirmed 07/05/19] Ketoconazole 2 % CREAM (NF) [Nizoral 2% CREAM (NF)] 1 applic TOPICAL BID PRN [History Confirmed 07/05/19] Venlafaxine HCl 2 tab PO QAM 10/29/17 [History Confirmed 07/05/19] Clindamycin Cap(NF) [Clindamycin Cap 300 mg Cap(NF)] 300 mg PO SEE INSTRUCTIONS PRN 06/28/18 [History Confirmed 07/05/19] Cyanocobalamin (Vitamin B-12) [Vitamin B12] 1 mg PO QAM 06/28/18 [History Confirmed 07/05/19] Folic Acid TAB* [Folvite TAB*] 1 mg PO QAM 06/28/18 [History Confirmed 07/05/19] diPHENhydraMINE PO* [Benadryl PO 25 MG TAB*] 25 mg PO BEDTIME PRN 06/28/18 [ History Confirmed 07/05/19] sulfaSALAzine TAB* [Azulfidine TAB*] 500 mg PO BID 06/28/18 [History Confirmed 07/05/19] Oxycodone TAB(NF) [Oxycodone HCl 10 MG] 10 mg PO TID PRN 08/13/18 [History Confirmed 07/05/19] predniSONE 20 mg TAB [Deltasone 20 MG TAB*] 20 mg PO DAILY #4 tab 07/05/19 [Rx] PMH/Surg Hx/FS Hx/Imm Hx Previously Healthy: Yes Other History Of: Negative For: HIV, Hepatitis B, Hepatitis C, Anticoagulant Therapy - Surgical History Surgical History: Yes Surgery Procedure, Year, and Place: TONSILS, ARTHRO LT KNEE , RT KNEE , CATARACTS 2010,. Heart Cath in October 2012, no blockage. BOTOX FOR ANAL FISSURE-2015. right total hip replacement 2017. Right total knee replacement 2019 - Family History Known Family History: Positive: Cardiac Disease - Positive CAD to father. Afib to mother, Hypertension, Diabetes - Social History Alcohol Use: None Substance Use Type: None Substance Use Comment - Amount & Last Used: for pain Smoking Status (MU): Former Smoker Type: Cigarettes Amount Used/How Often: social Length of Time of Smoking/Using Tobacco: 30 years Have You Smoked in the Last Year: No When Did the Patient Quit Smoking/Using Tobacco: 1989 - Immunization History Most Recent Influenza Vaccination: February 2018 Most Recent Pneumonia Vaccination: 2016 Review of Systems All Other Systems Reviewed And Are Negative: Yes Constitutional: Positive: Negative Skin: Positive: Negative Eyes: Positive: Negative ENT: Positive: Sore Throat Respiratory: Positive: Cough Cardiovascular: Positive: Negative Gastrointestinal: Positive: Negative Genitourinary: Positive: Negative Motor: Positive: Negative Neurovascular: Positive: Negative Musculoskeletal: Positive: Negative Neurological/Mental Status: Positive: Negative Psychological: Positive: Negative Physical Exam Triage Information Reviewed: Yes Appearance: Well-Appearing, No Pain Distress, Well-Nourished Vital Signs: Initial Vital Signs Temp 98.2 F 07/05/19 13:17 Pulse 77 07/05/19 13:17 Resp 16 07/05/19 13:17 BP 149/87 07/05/19 13:17 Pulse Ox 97 07/05/19 13:17 Vital Signs Reviewed: Yes Eyes: Positive: Conjunctiva Clear ENT: Positive: Hearing grossly normal, Pharyngeal erythema, Uvula midline. Negative: Nasal congestion, Nasal drainage, Tonsillar swelling, Tonsillar exudate, Trismus, Muffled voice, Hoarse voice Dental Exam: Normal Neck: Positive: Supple, Nontender, Enlarged Nodes @ - ant cerv nodes Respiratory: Positive: Lungs clear, Normal breath sounds, No respiratory distress, No accessory muscle use Cardiovascular: Positive: RRR, No Murmur Musculoskeletal: Positive: ROM Intact, No Edema Neurological: Positive: Alert Psychological Exam: Normal Skin Exam: Normal Throat Pain/Nasal Course/Dx - Differential Dx/Diagnosis Provider Diagnosis: Pharyngitis, Bronchospasm Discharge ED - Sign-Out/Discharge Documenting (check all that apply): Patient Departure All imaging exams completed and their final reports reviewed: No Studies - Discharge Plan Condition: Stable Disposition: HOME Prescriptions: predniSONE 20 mg TAB [Deltasone 20 MG TAB*] 20 mg PO DAILY #4 tab Patient Education Materials: Pharyngitis (ED), Bronchospasm (ED) Referrals: Jesus Alberto Robertson MD [Primary Care Provider] - 2 Days (recheck in 2-3 days ) Additional Instructions: I suggest you do a neb treatment when you get home recheck for new or worsening symptoms - Billing Disposition and Condition Condition: STABLE Disposition: Home
--- OUTSIDE RECORDS SUMMARY | 2019-07-05 13:32 | XMS REPORT | Continuity of Care Document ---
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/17/2018 Localized, primary osteoarthritis Onset: 09/17/2017 Localized, primary osteoarthritis of the pelvic region and Onset: 08/10/2017 thigh Localized, secondary osteoarthritis of the shoulder region Onset: 11/09/2016 Injury of shoulder region Onset: 11/09/2016 Obstructive sleep apnea syndrome Onset: 03/19/2013 Palpitations Onset: 03/19/2013 Social History Type Date Description Comments Sex Unknown Tobacco Use Start: Unknown End: Unknown Patient is a former smoker Quit 1989 Smoking Status Reviewed: 06/04/19 Patient is a former smoker Quit 1989 Allergies, Adverse Reactions, Alerts Active Allergies Reaction Severity Comments Date Niacin No Reaction Indicated 01/17/2019 Penicillin No Reaction Indicated 01/17/2019 Medications Active Medications SIG Qnty Indications Ordering Date Provider Ventolin HFA 2 four times 25.5gm Jesus Alberto Robertson MD 06/04/2019 daily as needed 108(90Base) mcg/Act inhalation Aerosol Plaquenil bid by mouth 45tabs Yohan Graves 05/20/2019 200mg Tablets daily Potassium Chloride ER Oral; Take One 90caps Unknown 12/08/2018 Capsule By Mouth 10Meq Capsules ER Once Daily Venlafaxine HCL ER Take 1 To 3 90caps Jesus Alberto Robertson MD 11/12/2018 75mg Capsules By Mouth Caps ER 24HR Once Daily as Directed Advair Diskus Inhalation; 180units Unknown 07/10/2018 Inhale One puff 250-50mcg/Dose By Mouth Twice A Aerosol Day Dispense brand. Levothyroxine Sodium Take One Tablet 90tabs Jesus Alberto Robertson MD 07/10/2018 By Mouth Once 50mcg Tablets Daily Alprazolam oral; take 1 to 2 45tabs Jesus Alberto Robertson MD 07/08/2018 0.25mg tablets by mouth Tablets daily as needed Folic Acid 1 daily Oral 30tabs Unknown 06/28/2018 1mg Tablets Vitamin B-12 1 daily Oral 30tabs Unknown 06/06/2018 100mcg Tablets Sulfasalazine one twice each Unknown 06/06/2018 500mg day Oral Tablets Clindamycin HCL take 2 tablets 1 4caps Krishan Garcia 01/10/2018 300mg hour prior to Capsules dental work Metformin HCL 1 daily Oral 90tabs Unknown 12/11/2016 500mg Tablets Atenolol Oral; Take One 90tabs Unknown 12/11/2016 25mg Tablets Tablet By Mouthonce Daily Losartan Potassium Oral; Takeone 90tabs Unknown 10/05/2016 50mg Tablet By Mouth Tablets Once Daily Montelukast Sodium Oral; Takeone 90tabs Unknown 10/05/2016 10mg Tablet By Mouth Tablets Once Daily Atorvastatin Calcium Oral; Take One 90tabs Unknown 09/08/2014 Tablet By Mouth 80mg Tablets Once Daily Nasonex 2 Sprays Daily 17units Unknown 09/16/2012 50mcg/Act Nasal; 2 Sprays Suspension In Each Nostril Once A Day Benadryl Allergy Unknown 25mg Capsules Immunizations CPT Code Status Date Vaccine Lot # 20089 Given 03/17/2019 Flu High Dose 35761 Given 01/29/2018 Shingrix - Shingles vaccine, Herpes Zoster 09204 Given 04/13/2017 Pneumovax - for >=2years - PPSV23 94467 Given 02/17/2016 Prevnar 13 50326 Given 12/06/2010 Zoster Shingles Vaccine For Subcutaneous Injection 73665 Given 06/22/2009 Pneumovax - for >=2years - PPSV23 04318 Given 06/22/2009 Tdap - Boostrix/Adacel 43211 Refused 09/16/2012 Hep B 11-15yr, Recombivax 1.0ml dose only Vital Signs Date Vital Result Comment 06/04/2019 9:48am BP Systolic 140 mmHg right arm BP Diastolic 82 mmHg right arm Height 62.5 inches 5'2.50" Weight 180.00 lb Heart Rate 76 /min Body Temperature 98.8 F O2 % BldC Oximetry 98 % BMI (Body Mass Index) 32.4 kg/m2 05/20/2019 9:34am Height 62 inches Weight 182.25 lb Heart Rate 55 /min Body Temperature 98.0 F O2 % BldC Oximetry 98 % BMI (Body Mass Index) 33.3 kg/m2 Results Test Acquired Date Facility Test Result H/L Range Note Laboratory test 04/09/2019 [facility] TSH (Thyroid 1.29 Normal 0.34-5.[address] Stim Horm) mcIU/[place] [address] [phone] Comp Metabolic 04/09/2019 [facility] Albumin 4.0 g/dL Normal 3.2-5.[address] [place] [address] [phone] Sodium 139 mmol/L Normal 135-145 Potassium 4.5 mmol/L Normal 3.5-5.0 Chloride 106 mmol/L Normal 101-111 Co2 Carbon Dioxide 27 mmol/L Normal 22-32 Anion Gap 6 mmol/L Normal 2-11 Calcium 9.5 mg/dL Normal 8.6-10.3 Total Bilirubin 0.30 mg/dL Normal 0.2-1.0 Total Protein 6.8 g/dL Normal 6.4-8.9 Globulin 2.8 g/dL Normal 2-4 Albumin/Globulin Ratio 1.4 Normal 1-3 Glucose 98 mg/dL Normal 70-100 Blood Urea Nitrogen 20 mg/dL Normal 6-24 Creatinine 0.70 mg/dL Normal 0.51-0.95 BUN/Creatinine Ratio 28.6 High 8-20 Alkaline Phosphatase 67 U/L Normal 34-104 Alt 15 U/L Normal 7-52 Ast 16 U/L Normal 13-39 Egfr Non- 83.2 >60 Egfr 100.7 >60 2 Laboratory test 04/09/2019 [facility] C Reactive 3.31 mg/L Normal <8.01 [address] [address] [phone] CBC Auto Diff 04/09/2019 [facility] White Blood 6.3 Normal 3.5 -10.[address] Count 10^3/[place] [address] [phone] Red Blood Count 4.14 10^6/uL Normal 3.70-4.87 Hemoglobin 11.8 g/dL Low 12.0-16.0 Hematocrit 36 % Normal 35-47 Mean Corpuscular Volume 87 fL Normal 80-97 Mean Corpuscular Hemoglobin 29 pg Normal 27-31 Mean Corpuscular HGB Conc 33 g/dL Normal 31-36 Red Cell Distribution Width 15 % Normal 10-15 Platelet Count 213 10^3/uL Normal 150-450 Mean Platelet Volume 9.4 fL Normal 7.4-10.4 Abs Neutrophils 3.7 10^3/uL Normal 1.5-7.7 Abs Lymphocytes 1.7 10^3/uL Normal 1.0-4.8 Abs Monocytes 0.5 10^3/uL Normal 0-0.8 Abs Eosinophils 0.4 10^3/uL Normal 0-0.6 Abs Basophils 0.1 10^3/uL Normal 0-0.2 Abs Nucleated RBC 0.0 10^3/uL Granulocyte % 59.1 % Lymphocyte % 26.6 % Monocyte % 7.5 % Eosinophil % 6.0 % Basophil % 0.8 % Nucleated Red Blood Cells % 0.1 Laboratory test 04/09/2019 [facility] Erythrocyte Sed 46 mm/Hr High 0-29 [address] [place] [address] [phone] 1 Please check labs today 2 Because ethnic data is not always [...] 5 Kidney failure <15 (or dialysis) 3 Please check labs today 4 Please check labs today Procedures Date Code Description Status 06/04/2019 70842 Brief Emotional/Behav Assessment W/ Scoring Doc Per Completed Standard Inst Medical Devices Description No Information Available Encounters Type Date Location Provider Dx Diagnosis Office Visit 06/04/2019 9:45a [facility] Jesus Alberto Robertson MD F43.22 Adjustment disorder with anxiety Assessments Date Code Description Provider 06/04/2019 F43.22 Adjustment disorder with anxiety Jesus Alberto Robertson MD Plan of Treatment 06/04/2019 - Jesus Alberto Robertson MDF43.22 Adjustment disorder with anxietyAllNew Medication:Ventolin HFA 108(90 Base) mcg/Act - 2 four times daily as needed inhalation Functional Status Description No Information Available Mental Status Description No Information Available Referrals Description No Information Available
--- OUTSIDE RECORDS SUMMARY | 2019-07-05 13:32 | XMS REPORT | Continuity of Care Document ---
:1950 External Reference #:[id number] Author Name Yohan Graves M.D. 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 Onset: 08/26/2018 Social History Type Date Description Comments Sex Unknown ETOH Use Denies alcohol use Tobacco Use Start: Unknown End: Patient is a former smoker Unknown Recreational Drug Use Denies Drug Use Smoking Status Reviewed: 07/01/19 Patient is a former smoker Exercise Type/Frequency Exercises sporadically Allergies, Adverse Reactions, Alerts Active Allergies Reaction Severity Comments Date Philip 10/08/2012 Medications Active Medications SIG Qnty Indications Ordering Date Provider Hydroxychloroquine Take one 90tabs Yohan Sulfate capsule/tablet Ashley Graves 0 200mg Tablets daily by mouth Paraffin use daily for hand 500gm Yohan Wax stretching and Ashley Graves 9 osteoarthritis m72 Reglan 1 tab po q6 hours 14tabs Anastacia Rell, 10mg Tablets prn MaddyDStacy 9 Folic Acid Take One Tablet By 90tabs Yohan 1mg Tablets Mouth Once Daily Ashley Graves 9 X07-Bbwbyg take one 90units Yohan 1mg Chewtabs capsule/tablet Ashley Graves 8 daily sublingually Clindamycin HCL take 2 tablets 1 4caps Krishan Garcia, 300mg hour prior to MD 8 Capsules dental work Atenolol 1 by mouth every 90tabs Linsey Canas, 25mg Tablets day M.D. 3 Ondansetron John, 4mg Tablets MD Wilmer 0 Dispers Venlafaxine HCL ER Jesus Alberto Robertson, 75mg Caps MD 0 ER 24HR Ventolin HFA Unknown 0 Atorvastatin Calcium 1 by mouth every Unknown 80mg day 0 Tablets Advair Diskus inhale one puff by Unknown 100-50mcg/Dose mouth twice a day 0 Aerosol Benadryl Allergy Unknown 25mg 0 Capsules Levothyroxine Sodium 1 by mouth every Unknown 50mcg day 0 Tablets Singulair 1 po qd 90tabs Unknown 10mg Tablets 0 Metformin HCL ER 1 po qd 30tabs Unknown 500mg 0 Tablets ER 24HR Effexor XR 1 po qd 30caps Unknown 225mg Caps ER 24HR 0 Potassium Chloride ER 1 po qd 90tabs Unknown 10Meq 0 Tablets ER Cozaar 1 po qd 30tabs Unknown 50mg Tablets 0 History Medications Plaquenil 1 by mouth every 45tabs Yohan Graves, 05/20/2019 - 200mg day for 1 week M.DStacy 06/26/2019 Tablets then 2 by mouth daily ongoing Medications Administered in Office Medication SIG Qnty Indications Ordering Provider Date Depomedrol 40MG Anastacia Zacarias M.D. 06/17/2018 Injection Depomedrol 40MG Anastacia Zacarias M.D. 09/17/2017 Injection Triamcinolone (Kenalog) Krishan Garcia MD 11/09/2016 Injection Technetium TC 99M Tetrofosmin, Per Linsey Canas M.D. 10/21/2012 Unit Dose Up To 40 Millicuries Injection Immunizations Description No Information Available Vital Signs Date Vital Result Comment 07/01/2019 9:46am Height 62 inches 5'2" Weight 184.00 lb Heart Rate 65 /min BP Systolic Sitting 128 mmHg BP Diastolic Sitting 80 mmHg Body Temperature 98.0 F Pain Level 4 O2 % BldC Oximetry 98 % BMI (Body Mass Index) 33.7 kg/m2 05/20/2019 9:34am Height 62 inches 5'2" Weight 182.25 lb Heart Rate 55 /min BP Systolic Sitting 122 mmHg BP Diastolic Sitting 80 mmHg Body Temperature 98.0 F Pain Level 3 O2 % BldC Oximetry 98 % BMI (Body Mass Index) 33.3 kg/m2 Results Test Acquired Date Facility Test Result H/L Range Note Laboratory test 06/27/2019 [facility] Erythrocyte Sed 29 mm/Hr Normal 0-[address] [place] [address] [phone] C Reactive Protein 3.74 mg/L Normal <8.01 CBC Auto 06/27/2019 [facility] White Blood 6.2 10^3/uL Normal 3.5-10.[address] [place] [address] [phone] Red Blood Count 4.13 10^6/uL Normal 3.70-4.87 Hemoglobin 12.2 g/dL Normal 12.0-16.0 Hematocrit 37 % Normal 35-47 Mean Corpuscular Volume 89 fL Normal 80-97 Mean Corpuscular Hemoglobin 30 pg Normal 27-31 Mean Corpuscular HGB Conc 33 g/dL Normal 31-36 Red Cell Distribution Width 14 % Normal 10-15 Platelet Count 218 10^3/uL Normal 150-450 Mean Platelet Volume 9.8 fL Normal 7.4-10.4 Abs Neutrophils 3.9 10^3/uL Normal 1.5-7.7 Abs Lymphocytes 1.6 10^3/uL Normal 1.0-4.8 Abs Monocytes 0.5 10^3/uL Normal 0-0.8 Abs Eosinophils 0.2 10^3/uL Normal 0-0.6 Abs Basophils 0.0 10^3/uL Normal 0-0.2 Abs Nucleated RBC 0.0 10^3/uL Granulocyte % 62.3 % Lymphocyte % 26.3 % Monocyte % 7.3 % Eosinophil % 3.6 % Basophil % 0.5 % Nucleated Red Blood Cells % 0.0 Comp Metabolic 06/27/2019 [facility] Sodium 140 mmol/L Normal 135-[address] [place] [address] [phone] Potassium 4.6 mmol/L Normal 3.5-5.0 Chloride 105 mmol/L Normal 101-111 Co2 Carbon Dioxide 31 mmol/L Normal 22-32 Anion Gap 4 mmol/L Normal 2-11 Calcium 9.0 mg/dL Normal 8.6-10.3 Albumin 4.1 g/dL Normal 3.2-5.2 Total Bilirubin 0.30 mg/dL Normal 0.2-1.0 Glucose 86 mg/dL Normal 70-100 Blood Urea Nitrogen 14 mg/dL Normal 6-24 Creatinine 0.75 mg/dL Normal 0.51-0.95 BUN/Creatinine Ratio 18.7 Normal 8-20 Total Protein 6.7 g/dL Normal 6.4-8.9 Globulin 2.6 g/dL Normal 2-4 Albumin/Globulin Ratio 1.6 Normal 1-3 Alkaline Phosphatase 75 U/L Normal 34-104 Alt 13 U/L Normal 7-52 Ast 16 U/L Normal 13-39 Egfr Non- 76.8 >60 Egfr 93.0 >60 1 Laboratory test 06/27/2019 [facility] Magnesium 2.0 mg/dL Normal 1.9-2.[address] [place] [address] [phone] TSH (Thyroid Stim Horm) 0.87 mcIU/mL Normal 0.34-5.60 Creatine Kinase(CK) 110 U/L Normal 10-223 Immunoglobulins 06/27/2019 [facility] Immunoglobulin G 1150 767 - [address] mg/dL [address] [place] [address] [phone] Immunoglobulin M 99 mg/dL 37 - 286 Immunoglobulin A 214 mg/dL 61 - 356 Laboratory test 04/09/2019 [facility] C Reactive 3.31 mg/L Normal <8.01 [address] [place] [address] [phone] Erythrocyte Sed Rate 46 mm/Hr High 0-29 4 CBC Auto 04/09/2019 [facility] White Blood 6.3 10^3/uL Normal 3.5-10.[address] [place] [address] [phone] Red Blood Count 4.14 10^6/uL Normal 3.70-4.87 [...] % Nucleated Red Blood Cells % 0.1 Comp Metabolic 04/09/2019 [facility] Albumin 4.0 g/dL Normal 3.2-5.[address] [place] [address] [phone] Sodium 139 mmol/L Normal 135-145 Potassium 4.5 [...] Egfr Non- 83.2 >60 Egfr 100.7 >60 5 Laboratory 04/09/2019 [facility] TSH (Thyroid 1.29 Normal 0.34 -5.60 6 test finding [address] Stim Horm) mcIU/[place] [address] [phone] Laboratory 04/09/2019 [facility] Erythrocyte 46 mm/Hr High 0- 29 7 test finding [address] [place] [address] [phone] C Reactive Protein 3.31 mg/L Normal <8.01 8 CBC Auto 04/09/2019 [facility] White Blood 6.3 10^3/uL Normal 3.5-10.[address] [place] [address] [phone] Red Blood Count 4.14 10^6/uL Normal 3.70-4.87 [...] % Nucleated Red Blood Cells % 0.1 Comp Metabolic 04/09/2019 [facility] Albumin 4.0 g/dL Normal 3.2-5.[address] [place] [address] [phone] Sodium 139 mmol/L Normal 135-145 Potassium 4.5 [...] Egfr Non- 83.2 >60 Egfr 100.7 >60 9 Laboratory 04/09/2019 [facility] TSH (Thyroid 1.29 Normal 0.34 -5.60 10 test finding [address] Stim Horm) mcIU/[place] [address] [phone] 1 Because ethnic data is not always [...] 5 Kidney failure <15 (or dialysis) 2 Test Performed by: [facility] [address] [place] [address] Jitney Driver: Mic Drew M.D. Ph.D.; IA# [id number] 3 Please check labs today 4 Please check labs today 5 Because ethnic data is not always [...] <15 (or dialysis) 6 Please check labs today 7 Please check labs today 8 Please check labs today 9 Because ethnic data is not always readily [...] 15-29 5 Kidney failure <15 (or dialysis) 10 Please check labs today Procedures Description No Information Available Medical Devices Description No Information Available Encounters Type Date Location Provider Dx Diagnosis Office Visit 07/01/2019 Rheumatology Yohan Graves L40.50 Arthropivone 9:40a [facility] psoriasis, unspecified Z79.899 Other keno terminal operator (current) drug therapy M19.049 Primary osteoarthritis, unspecified hand R20.8 Other disturbances of skin sensation Office Visit 05/20/2019 Rheumatology Yohan L40.50 Lulú 9:40a [facility] M.D. psoriasis, unspecified Z79.899 Other keno terminal operator (current) drug therapy M19.049 Primary osteoarthritis, unspecified hand R25.2 Cramp and spasm Office Visit 03/03/2019 9:00a [facility] Anastacia Rell, M25.561 Pain in right at [place] M.DStacy knee M25.551 Pain in right hip Z96.651 Presence of right artificial knee joint Z96.641 Presence of right artificial hip joint W19.xxxD Unspecified fall, subsequent encounter Z47.1 Aftercare following joint replacement surgery Assessments Date Code Description Provider 07/01/2019 L40.50 Arthropathic psoriasis, unspecified Yohan Graves M.D. 07/01/2019 Z79.899 Other keno terminal operator (current) drug therapy Yohan Graves M.D. 07/01/2019 M19.049 Primary osteoarthritis, unspecified hand Yohan Graves M.D. 07/01/2019 R20.8 Other disturbances of skin sensation Yohan Graves M.D. 05/20/2019 L40.50 Arthropathic psoriasis, unspecified Yohan Graves M.D. 05/20/2019 Z79.899 Other keno terminal operator (current) drug therapy Yohan Graves M.D. 05/20/2019 M19.049 Primary osteoarthritis, unspecified hand Yohan Graves M.D. 05/20/2019 R25.2 Cramp and spasm Yohan Graves M.D. 03/03/2019 M25.561 Pain in right knee Anastacia Zacarias M.D. 03/03/2019 M25.551 Pain in right hip Anastacia Zacarias M.D. 03/03/2019 Z96.651 Presence of right artificial knee joint Anastacia Zacarias M.D. 03/03/2019 Z96.641 Presence of right artificial hip joint Anastacia Zacarias M.D. 03/03/2019 W19.xxxD Unspecified fall, subsequent encounter Anastaica Zacarias M.D. 03/03/2019 Z47.1 Aftercare following joint replacement surgery Anastacia Zacarias M.D. Plan of Treatment Future Appointment(s):09/02/2019 8:00 am - Yohan Graves M.D. at [facility]07/01/2019 - Yohan Graves M.D.L40.50 Arthropathic psoriasis, oaycrfhxpdcQ12.899 Other chcf (current) drug uordclmK87.049 Primary osteoarthritis, unspecified handR20.8 Other disturbances of skin sensationNew Orders:EMG w/Nerve Conduct Study, Lower, Ordered: 07/01/19EMG w/Nerve Conduct Study, Upper, Ordered: 07/01/19Follow up:Follow up in 2 months or sooner if needed Functional Status Description No Information Available Mental Status Description No Information Available Referrals Refer to Reason for Referral Status Appt Holger Najera, OD Refer to Dr. Adrien Nye to monitor Plaquenil Sent toxicity [address] [place] [address] [phone]
--- OUTSIDE RECORDS SUMMARY | 2019-07-05 13:32 | XMS REPORT | Continuity of Care Document ---
:1950 External Reference #:[id number] Author Problems Active Problems Provider Date Psoriatic arthritis [...] CPT Code Status Date Vaccine Lot # [id number] Given 03/17/2019 Flu High Dose 63928 Given 01/29/2018 Shingrix - Shingles vaccine, Herpes Zoster 04602 Given 04/13/2017 Pneumovax - for >=2years - PPSV23 80237 Given 02/17/2016 Prevnar 13 32733 Given 12/06/2010 Zoster Shingles Vaccine For Subcutaneous Injection 33711 Given 06/22/2009 Pneumovax - for >=2years - PPSV23 78346 Given 06/22/2009 Tdap - Boostrix/Adacel 40506 Refused 09/16/2012 Hep B 11-15yr, Recombivax 1.0ml [...] Date Facility Test Result H/L Range Note Comp Metabolic 06/27/2019 [facility] Sodium 140 mmol/L Normal 135-[address] [place] [address] [phone] Potassium 4.6 mmol/L Normal 3.5-5.0 Chloride 105 [...] Egfr 93.0 >60 1 Laboratory test 06/27/2019 [facility] Magnesium 2.0 mg/dL Normal 1.9-2.[address] [place] [address] [phone] Creatine Kinase(CK) 110 U/L Normal 10-223 C Reactive Protein 3.74 mg/L Normal <8.01 TSH (Thyroid Stim Horm) 0.87 mcIU/mL Normal 0.34-5.60 CBC Auto 06/27/2019 [facility] White Blood 6.2 10^3/uL Normal 3.5-10.[address] [place] [address] [phone] Red Blood Count 4.13 10^6/uL Normal 3.70-4.87 [...] % Nucleated Red Blood Cells % 0.0 Laboratory test 06/27/2019 [facility] Erythrocyte Sed 29 mm/Hr Normal 0-[address] [place] [address] [phone] Laboratory test 04/09/2019 [facility] TSH (Thyroid 1.29 Normal 0.34-5.[address] Stim Horm) mcIU/mL 0 [place] [address] [phone] Comp Metabolic 04/09/2019 [facility] Albumin 4.0 g/dL Normal 3.2-5.[address] [place] [address] [phone] Sodium 139 mmol/L Normal 135-145 Potassium 4.5 [...] Egfr Non- 83.2 >60 Egfr 100.7 >60 3 Laboratory test 04/09/2019 [facility] C Reactive 3.31 mg/L Normal <8.01 [address] [place] [address] [phone] CBC Auto Diff 04/09/2019 [facility] White Blood 6.3 Normal 3.5 -10.[address] Count 10^3/[place] [address] [phone] Red Blood Count 4.14 10^6/uL Normal 3.70-4.87 [...] Blood Cells % 0.1 Laboratory test 04/09/2019 [facility] Erythrocyte Sed 46 mm/Hr High 0-29 [address] [place] [address] [phone] 1 Because ethnic data is not always [...] 5 Kidney failure <15 (or dialysis) 2 Please check labs today 3 Because ethnic data is not always [...] <15 (or dialysis) 4 Please check labs today 5 Please check labs today Procedures Date Code Description Status 06/04/2019 54379 Brief Emotional/Behav Assessment W/ Scoring Doc Per Completed Standard Inst Medical Devices Description No Information Available Encounters Type Date Location Provider Dx Diagnosis Office Visit 06/04/2019 9:45a [facility] Cristhian Robertson MD F43.22 Adjustment disorder with anxiety Z13.31 Encounter for screening for depression Assessments Date Code Description Provider 06/04/2019 F43.22 Adjustment disorder with anxiety Jesus Alberto Robertson MD 06/04/2019 Z13.31 Encounter for screening for depression Jesus Alberto Robertson MD Plan of Treatment 06/04/2019 - Jesus Alberto Robertson MDF43.22 Adjustment disorder with iqsjlymG22.31 Encounter for screening for depressionAllNew Medication:Ventolin HFA 108(90 Base ) mcg/Act - 2 four times daily as needed inhalation Functional Status Description No Information Available Mental Status Description No Information Available Referrals Description No Information Available
--- OUTSIDE RECORDS SUMMARY | 2019-07-05 13:32 | XMS REPORT | Continuity of Care Document ---
:1950 External Reference #:[id number] Author Problems Active Problems Provider Date Psoriatic [...] By Mouth Tablets Once Daily Atorvastatin Calcium Take One Tablet 90tabs Jesus Alberto Robertson MD 09/08/2014 By Mouth Once 80mg Tablets Daily Nasonex 2 Sprays Daily 17units Unknown 09/16/2012 50mcg/Act Nasal; 2 Sprays Suspension In Each Nostril Once A Day Benadryl Allergy Unknown 25mg Capsules Immunizations CPT Code Status Date Vaccine Lot # [id number] Given 03/17/2019 Flu High Dose 68695 Given 01/29/2018 Shingrix - Shingles vaccine, Herpes Zoster 61992 Given 04/13/2017 Pneumovax - for >=2years - PPSV23 36487 Given 02/17/2016 Prevnar 13 40408 Given 12/06/2010 Zoster Shingles Vaccine For Subcutaneous Injection 43127 Given 06/22/2009 Pneumovax - for >=2years - PPSV23 56388 Given 06/22/2009 Tdap - Boostrix/Adacel 09136 Refused 09/16/2012 Hep B 11-15yr, Recombivax 1.0ml [...] Result H/L Range Note Comp Metabolic 06/27/2019 [facility] Sodium 140 mmol/L Normal 135-[address] [place] [address] [phone] Potassium 4.6 mmol/L Normal 3.5-5.0 Chloride 105 [...] Egfr 93.0 >60 1 Laboratory test 06/27/2019 [facility] Magnesium 2.0 mg/dL Normal 1.9-2.[address] [place] [address] [phone] Creatine Kinase(CK) 110 U/L Normal 10-223 C Reactive Protein 3.74 mg/L Normal <8.01 TSH (Thyroid Stim Horm) 0.87 mcIU/mL Normal 0.34-5.60 CBC Auto 06/27/2019 [facility] White Blood 6.2 10^3/uL Normal 3.5-10.[address] Count [place], [place] [id number] [phone] Red Blood Count 4.13 10^6/uL Normal 3.70-4.87 [...] Blood Cells % 0.0 Laboratory test 06/27/2019 [facility] Erythrocyte Sed 29 Normal 0-[address] Rate mm/Hr [place], [place] [id number] [phone] Immunoglobulins 06/27/2019 [facility] Immunoglobulin G 1150 767 - [address] mg/dL [address] [place], [place] [id number] [phone] Immunoglobulin M 99 mg/dL 37 - 286 Immunoglobulin A 214 mg/dL 61 - 356 Laboratory 04/09/2019 [facility] TSH (Thyroid 1.29 Normal 0.34 -5.60 [address] Stim Horm) mcIU/mL [place], [place] [id number] [phone] Comp Metabolic 04/09/2019 [facility] Albumin 4.0 g/dL Normal 3.2-5.[address] [place] [address] [phone] Sodium 139 mmol/L Normal 135-145 Potassium 4.5 [...] Egfr Non- 83.2 >60 Egfr 100.7 >60 4 Laboratory test 04/09/2019 [facility] C Reactive 3.31 mg/L Normal <8.01 [address] [place] [place] [address] [phone] CBC Auto Diff 04/09/2019 [facility] White Blood 6.3 Normal 3.5 -10.[address] Count 10^3/[place] [address] [phone] Red Blood Count 4.14 10^6/uL Normal 3.70-4.87 [...] Blood Cells % 0.1 Laboratory test 04/09/2019 [facility] Erythrocyte Sed 46 mm/Hr High 0-29 [address] [place] [address] [phone] 1 Because ethnic data is not always [...] <15 (or dialysis) 2 Test Performed by: [facility] [address] [place] [address] [employer]: Mic Drew M.D. Ph.D.; CLIA# [id number] 3 Please check labs today 4 Because ethnic data is not always readily [...] 15-29 5 Kidney failure <15 (or dialysis) 5 Please check labs today 6 Please check labs today Procedures Date Code Description Status 06/04/2019 72536 Brief Emotional/Behav Assessment W/ Scoring Doc Per [...] Plan of Treatment 06/04/2019 - Jesus Alberto Roebrtson MDF43.22 Adjustment disorder with [id number] Encounter for screening for depressionAllNew Medication:Ventolin HFA 108(90 Base ) mcg/Act - 2 four times daily as needed inhalation Functional Status Description No Information Available Mental Status Description No Information Available Referrals Description No Information Available
== END 2019-07-05 14:02 | disposition home or self-care (01) ==
LOC: UCEAST 13:03
DX: J02.9 Acute pharyngitis, unspecified (principal); J98.01 Acute bronchospasm; Z87.891 Personal history of nicotine dependence; Z88.0 Allergy status to penicillin; Z88.8 Allergy status to other drugs, medicaments and biological substances
CPT/HCPCS: 87651; 99212; G0463; J7512